=== PATIENT | female | born 1955 | race Caucasian/White ===

== ENCOUNTER 2021-11-30 19:43 | Observation (INO) | payer OTHER, BC, SELFPAY ==
[2021-11-30] VITALS (7 sets, daily range): BP systolic 173–207; BP diastolic 82–156; PULSE 70–107; RESP 12–18; TEMP 36.6–37.1; O2SAT 96–100; BMI 19.3; BMI 19.8; BMI 18.6
--- NOTE | 2021-11-30 19:48 | CT_ITS ---
We are attempting to reach an attending provider to discuss findings. An addendum with communication details will be sent when the communication is complete. EXAM: CT ANGIOGRAPHY HEAD AND NECK WITH INTRAVENOUS CONTRAST CLINICAL INDICATION: Neuro deficit, acute, stroke suspected TECHNIQUE: [place] [facility] [place]/head and neck CT angiography protocol performed with intravenous contrast. This CT exam was performed using one or more of the following dose reduction techniques: automated exposure control, adjustment of the mA and/or kV according to patient size, and/or use of iterative reconstruction technique. This report was created using [employer] report generation technology. MIP reconstructed images were created and reviewed. CONTRAST: IV 100mL Isovue-370 RADIATION DOSE: CTDIvol = 12.27 mGy, DLP = 439.84 mGy-cm COMPARISON: None. FINDINGS: HEAD: RIGHT ANTERIOR CEREBRAL ARTERY: Unremarkable. No significant stenosis at the visualized segments. Anterior communicating artery is present. No aneurysm. RIGHT MIDDLE CEREBRAL ARTERY: Unremarkable. No significant stenosis at the visualized segments. No aneurysm. RIGHT POSTERIOR CEREBRAL ARTERY: Unremarkable. No occlusion or significant stenosis. No aneurysm. RIGHT INTRACRANIAL INTERNAL CAROTID ARTERY: Unremarkable. No significant stenosis. No dissection or occlusion. RIGHT INTRACRANIAL VERTEBRAL ARTERY: Unremarkable. No significant stenosis. No dissection or occlusion. LEFT ANTERIOR CEREBRAL ARTERY: Unremarkable. No significant stenosis at the visualized segments. No aneurysm. LEFT MIDDLE CEREBRAL ARTERY: Unremarkable. No significant stenosis at the visualized segments. No aneurysm. LEFT POSTERIOR CEREBRAL ARTERY: Unremarkable. No occlusion or significant stenosis. No aneurysm. LEFT INTRACRANIAL INTERNAL CAROTID ARTERY: Unremarkable. No significant stenosis. No dissection or occlusion. LEFT INTRACRANIAL VERTEBRAL ARTERY: Unremarkable. No significant stenosis. No dissection or occlusion. BASILAR ARTERY: Unremarkable. No significant stenosis. No aneurysm. GREAT VESSELS OF AORTIC ARCH: Unremarkable. Normal anatomy, patent. OTHER VASCULATURE: There is calcified plaque formation of the right cavernous carotid artery, with a mild stenosis (less than 50%). ALL ABOVE CRITERIA BY NASCET. There are no acute findings of the right and left internal carotid artery. ALL ABOVE CRITERIA BY NASCET. No vascular malformation. NECK: RIGHT COMMON CAROTID ARTERY: Unremarkable. No significant stenosis. No dissection or occlusion. RIGHT EXTRACRANIAL INTERNAL CAROTID ARTERY: Unremarkable. No significant stenosis. No dissection or occlusion. RIGHT EXTERNAL CAROTID ARTERY: Unremarkable. No occlusion. RIGHT EXTRACRANIAL VERTEBRAL ARTERY: Unremarkable. No significant stenosis. No dissection or occlusion. LEFT COMMON CAROTID ARTERY: Unremarkable. No significant stenosis. No dissection or occlusion. LEFT EXTRACRANIAL INTERNAL CAROTID ARTERY: Unremarkable. No significant stenosis. No dissection or occlusion. LEFT EXTERNAL CAROTID ARTERY: Unremarkable. No occlusion. LEFT EXTRACRANIAL VERTEBRAL ARTERY: Unremarkable. No significant stenosis. No dissection or occlusion. LUNG APICES: Apical pulmonary fibrosis. HEAD and NECK: BONES/JOINTS: There are degenerative findings of the cervical spine. No discrete lytic or blastic abnormalities. SOFT TISSUES: Unremarkable. TUBES, LINES AND DEVICES: There is a tracheostomy tube. The tip is at the level of the clavicles. CAROTID STENOSIS REFERENCE USING NASCET CRITERIA: % ICA stenosis = (1 - narrowest ICA diameter/diameter of distal cervical ICA) x 100. Mild - <50% stenosis. Moderate - 50-69% stenosis. Severe - 70-94% stenosis. Near occlusion - 95-99% stenosis. Occluded - 100% stenosis. CT/STROKE CTA Head AND Neck W/Con IMPRESSION: 1. There is calcified plaque formation of the right cavernous carotid artery, with a mild stenosis (less than 50%). ALL ABOVE CRITERIA BY NASCET. 2. There are no acute findings of the right and left internal carotid artery. ALL ABOVE CRITERIA BY NASCET. cf called. Electronically Signed: Balaji Parks MD at 20:19 EDT ,
--- NOTE | 2021-11-30 19:48 | CT_ITS ---
EXAM: CT HEAD WITHOUT INTRAVENOUS CONTRAST CLINICAL INDICATION: Neuro deficit, acute, stroke suspected TECHNIQUE: Multiple axial images were obtained of the head without intravenous contrast. This CT exam was performed using one or more of the following dose reduction techniques: automated exposure control, adjustment of the mA and/or kV according to patient size, and/or use of iterative reconstruction technique. This report was created using [employer] report generation technology. COMPARISON: None. FINDINGS: BRAIN AND EXTRA-AXIAL SPACES: Low density regions in the brain may signify early ischemic changes, a demyelinating process, vasculitis, or sequela related to migraines. No intra- or extra-axial hemorrhage. No intracranial mass or mass effect. Posterior fossa structures are unremarkable. Ventricles are appropriate for age. No hydrocephalus. Basal cisterns are patent. BONES/JOINTS: Unremarkable. No discrete lytic or blastic abnormalities. SINUSES: Unremarkable as visualized. Clear. MASTOID AIR CELLS: Unremarkable. Clear. ORBITS: Visualized globes, extraocular muscles, optic nerves and retrobulbar fat appear unremarkable. aspects 9/ CT/STROKE Brain/Head without Cont IMPRESSION: Early ischemic changes of the right frontal parietal lobe are of concern. cf called to dr Luciano : The above Results were Read Back by Balaji Parks MD to Dr. Josephine MD, and understanding confirmed on 11/30/2021 20:03:14 (ET). Electronically Signed: Balaji Parks MD at 20:04 EDT Reading Location ID and State: [facility] / [place] , Service support ,
--- NOTE | 2021-11-30 19:48 | EKG12_ITS ---
Test Reason : DYSRHYTHMIA Blood Pressure : / mmHG Vent. Rate : 080 BPM Atrial Rate : 080 BPM P-R Int : 162 ms QRS Dur : 080 ms QT Int : 392 ms P-R-T Axes : 082 -36 076 degrees QTc Int : 452 ms Sinus rhythm with Premature supraventricular complexes Left axis deviation Nonspecific ST and T wave abnormality Abnormal ECG Confirmed by DALTON CORONADO, DOMENICA ([id number]), editor magazine LESVIA SWANSON ([id number]) on 12/01/2021 11:41:19 AM Referred By: SANDY Confirmed By:DOMENICA HOFFMAN MD
--- NOTE | 2021-11-30 19:49 | EDS_ITS ---
HPI History of Present Illness Chief Complaint: Neuro S/Sx Informant: patient Narrative Narrative: Sudden numbness left hand left cheek and reported some weakness in the left upper extremity 6:15 PM this evening less than 2 hours ago. No headaches or speech changes. States had transient left arm weakness. Currently resolved. No stroke history. History of laryngeal cancer in 2016 has a tracheostomy tube. Remote tobacco. States does not take any current me dications. No stroke history. Prior similar symptoms: No PFSH PFSH Medical History COPD (chronic obstructive pulmonary disease) HTN (hypertension) Laryngeal cancer Home Medications levothyroxine 75 mcg PO DAILY 11/30/21 [History Last Taken Unknown] omeprazole 40 mg PO DAILY 11/30/21 [History Last Taken Unknown] Allergy/AdvReac Type Severity Reaction Status Date / Time No Known Allergies Allergy Verified 08/18/16 07:20 Family History Other CVA (cerebral vascular accident) Surgical History Laryngeal cancer Social History Smoking Status: Former smoker ROS ROS ED Constitutional Constitutional ED: Denies chills, fever(s) or sweats Eyes Eyes: Denies change in vision ENT ENT ED: Denies dysphagia or sore throat Cardiovascular Cardiovascular: Denies chest pain, leg edema, palpitations or racing heartbeat Respiratory/Chest Respiratory/Chest: Denies cough, dyspnea or dyspnea on exertion Gastrointestinal Gastrointestinal: Denies abdominal pain, diarrhea, nausea or vomiting Genitourinary Genitourinary ED: Denies dysuria, hematuria or urinary frequency Musculoskeletal Musculoskeletal: Denies back pain, extremity pain or neck pain Integumentary Denies rash or wounds Neurologic Neurologic: Reports paresthesias and weakness; Denies headache(s) EXAM Physical Exam Const Vital Signs: 11/30/21 19:44 11/30/21 19:54 11/30/21 20:07 Temperature 98.2 F 98.6 F Temperature Source Temporal Temporal Pulse Rate 107 H 83 Respiratory Rate 16 14 Blood Pressure 201/156 H 184/110 H Blood Pressure Mean 171 134 Pulse Ox 98 100 Oxygen Delivery Method Room Air Room Air Room Air 11/30/21 20:14 Temperature Temperature Source Pulse Rate 85 Respiratory Rate 18 Blood Pressure 200/109 H Blood Pressure Mean 139 Pulse Ox 98 Oxygen Delivery Method Room Air Positive well nourished and well developed General Appearance ED: well developed and NAD HEENT Reports moist mucous membranes normocephalic and atraumatic Eyes PERRL, EOMs intact bilaterally and conjunctivae normal General Eye ED: Yes normal appearance of both eyes Neck no lymphadenopathy and supple General: Negative for tenderness Chest Wall Chest: Negative for tenderness Resp normal respiratory effort and normal air movement Effort and Inspection: symmetric chest movement; Negative for respiratory distress Cardio regular rate, regular rhythm and no murmurs Peripheral Pulses: pulses 2+ throughout GI normal to inspection, nondistended, normoactive bowel sounds and non-tender Palpation: Negative for guarding or rebound tenderness present Back/Spine no CVA tenderness and no thoracic nor lumbar tenderness Extremity normal to inspection General Extremety ED: Negative for edema or tenderness General Extremity: Negative for edema Neuro oriented x3 and no sensory deficits noted Sensorium / Orientation: awake and alert Skin no rashes or lesions noted and no wounds STROKE Vital Signs/Narrative: Vital Signs Temp Pulse Resp BP Pulse Ox 11/30/21 20:14 85 18 200/109 H 98 11/30/21 20:07 98.6 F 83 14 184/110 H 100 11/30/21 19:44 98.2 F 107 H 16 201/156 H 98 Inital Vital Signs reviewed: Yes NIHSS Initial: 1a Level of Consciousness: 0 1b LOC Questions (Score 2 if aphasic/stupor): 0 1c LOC Commands (Only score 1st attempt): 0 2 Best Gaze (If aphasic, use reflexive mvmts.): 0 3 Visual: 0 4 Facial Palsy: 0 5 Motor Arm Right (UN = amputation/fusion): 0 5 Motor Arm Left: 0 6 Motor Leg Right: 0 6 Motor Leg Left: 0 7 Limb ataxia (Only + if out of proportion): 0 8 Sensory (Aphasia/stupor=0 or 1, coma=2): 0 9 Best Language: 0 10 Dysarthria (mute, coma=2, intubated=UN): 0 11 Extinction and Inattention (only scored if +): 0 Total Score: 0 MDM MDM MDM Narrative Medical decision making narrative: Patient transient paresthesia's face hand with transient weakness in left upper extremity. NIH currently is 0. Glucose 98. Timeframe within 4.5 hours of symptoms stroke team was activated. Will obtain CT and CT angiograms. Blood pressure in triage seen at 201/156. Will recheck when return to the room. Shortly after received a call from radiology concerning for possible early ischemic findings of the right frontal parietal lobe area. I did discuss the left-sided symptoms. CTA was pending. Neurology Dr. Gann was on the monitor I discussed the radiology findings and concerns. She reviewed the imagings and states appears more chronic changes. Patient is symptoms have resolved. There is pending results in her evaluation of the CT angiogram. Results which returned negative for LVO. She recommended baby aspirin and loading of Plavix 600 mg. She stating systolic blood pressure should be less than 200 with her recommending Plavix. Due to no LVO, patient will be admitted here for stroke work-up. I spoke with hospitalist service, Dr. Ayala for admission and recommendations by neurology. Chest x-ray 2 views obtained reviewed by myself noted hyperinflated lungs consistent with her COPD history. EKG is sinus rhythm. Patient admitted to PCU for further management. Lab Data Attestation: I reviewed the patient's lab results. Labs: Laboratory Results - last 24 hr 11/30/21 11/30/21 11/30/21 19:45 20:00 20:00 WBC 4.7 RBC 3.89 L Hgb 11.3 L Hct 34.0 L MCV 87.4 MCH 29.0 MCHC 33.2 RDW Std Deviation 44.2 H RDW Coeff of Cecelia 13.7 Plt Count 195 MPV 9.0 Immature Gran % (Auto) 0.400 Neut % (Auto) 66.0 Lymph % (Auto) 22.6 [place] % (Auto) 8.6 Eos % (Auto) 1.5 Baso % (Auto) 0.9 Absolute Neuts (auto) 3.1 Absolute Lymphs (auto) 1.05 Nucleated RBC % 0 PT 12.9 INR 1.0 APTT 29.6 Sodium Potassium Chloride Carbon Dioxide Anion Gap BUN Creatinine Estim Creat Clear Calc Est GFR (MDRD) Af Amer Est GFR (MDRD) Non-Af BUN/Creatinine Ratio Glucose Calcium Troponin I High Sens POC Glucose 98 11/30/21 20:00 WBC RBC Hgb Hct MCV MCH MCHC RDW Std Deviation RDW Coeff of Cecelia Plt Count MPV Immature Gran % (Auto) Neut % (Auto) Lymph % (Auto) [place] % (Auto) Eos % (Auto) Baso % (Auto) Absolute Neuts (auto) Absolute Lymphs (auto) Nucleated RBC % PT INR APTT Sodium 134 L Potassium 4.0 Chloride 101 Carbon Dioxide 27.0 Anion Gap 6 BUN 7 Creatinine 1.13 H Estim Creat Clear Calc 41.14 Est GFR (MDRD) Af Amer 62 Est GFR (MDRD) Non-Af 51 L BUN/Creatinine Ratio 6.2 L Glucose 99 Calcium 9.4 Troponin I High Sens 4 POC Glucose Radiography Diagnostic Testing: Clinical Impression(s) from Imaging Studies Brain CT 11/30/21 19:48 IMPRESSION: Early ischemic changes of the right frontal parietal lobe are of concern. cf called to dr Luciano : The above Results were Read Back by Balaji Parks MD to Dr. Josephine MD, and understanding confirmed on 11/30/2021 20:03:14 (ET). Electronically Signed: Balaji Parks MD at 20:04 EDT , ADDENDUM: 11/30/212010 IMPRESSION: Early ischemic changes of the right frontal parietal lobe are of concern. cf called to dr Luciano : The above Results were Read Back by Balaji Parks MD to Dr. Josephine MD, and understanding confirmed on 11/30/2021 20:03:14 (ET). Electronically Signed: Balaji Parks MD at 20:04 EDT , Head/Neck CTA 11/30/21 19:48 IMPRESSION: 1. There is calcified plaque formation of the right cavernous carotid artery, with a mild stenosis (less than 50%). ALL ABOVE CRITERIA BY NASCET. 2. There are no acute findings of the right and left internal carotid artery. ALL ABOVE CRITERIA BY NASCET. cf called. Electronically Signed: Balaji Parks MD at 20:19 EDT , ADDENDUM: 11/30/212030 IMPRESSION: 1. There is calcified plaque formation of the right cavernous carotid artery, with a mild stenosis (less than 50%). ALL ABOVE CRITERIA BY NASCET. 2. There are no acute findings of the right and left internal carotid artery. ALL ABOVE CRITERIA BY NASCET. cf called. N.B. : The above Results were Read Back by Balaji Parks MD to MD Josephine, and understanding confirmed on 11/30/2021 20:24:23 (ET). Electronically Signed: Balaji Parks MD at 20:19 EDT , Chest X-Ray 11/30/21 20:20 IMPRESSION: There are no acute findings. Electronically Signed: Balaji Parks MD at 20:43 EDT , EKG Initial EKG: Attestation: I personally reviewed and interpreted this EKG as follows: Comments: Sinus rate of 80, no ST changes. T wave version V1 V2. Discharge Plan Dx/Rx/DC Orders Clinical Impression: Brain TIA, Laryngeal cancer, COPD (chronic obstructive pulmonary disease), Left arm weakness Disposition Disposition: Acute Care Hospital [facility] Discharge Date/Time: 11/30/21 21:30
[2021-11-30 19:51] LABS: Bedside Glucose 98 mg/dL (74-106)
--- NOTE | 2021-11-30 19:56 | CM.ED ---
Addendum entered by Margaret Issa 11/30/21 20:21: FLORENCIA and FLORENCIA Sarmiento met with patient's daughter in law and and offered support. No needs voiced. SW remains available. Plan: To be determined. Emotional support offered. Margaret LISA Original Note: FLORENCIA Note Referral Source: Stroke Alert Referral Reason: Stroke Alert FLORENCIA and FLORENCIA Sarmiento H. Responded to Stroke alert. Patient and family member were in imaging. SW remain available if needs arise. Plan: Emotional support as needed. Margaret LISA
[2021-11-30 20:08] LABS: Absolute Lymphocyte Count 1.05 X10^3/uL (0.83-4.51); Absolute Neutrophil Count 3.1 X10^3/uL (2.0-7.7); Basophil# 0.04 X10^3/uL; Basophil% 0.9 % (0-1); Eosinophil# 0.07 X10^3/uL; Eosinophils% 1.5 % (0-5); Hemoglobin 11.3 g/dL (12.0-15.0); Lymphocyte # 1.05 X10^3/ul (0.83-4.51); Lymphocyte % 22.6 % (19-41); Mean Corp Hgb Conc 33.2 g/dL (32-36); Mean Corpuscular Volume 87.4 fL (81-99); Monocyte% 8.6 % (0-10); NRBC Flagged by Analyzer 0 % (0-5); Neutrophil # 3.07 X10^3/uL (2.7-7.7); Platelet Count 195 K/mm3 (150-450); RBC Distribution Width CV 13.7 % (11.6-14.6); RBC Distribution Width SD 44.2 fl (35.1-43.9); Red Blood Count 3.89 M/mm3 (4.2-5.4); White Blood Count 4.7 K/mm3 (4.4-11.0)
[2021-11-30 20:16] LABS: Prothrombin Time (Protime)PT. 12.9 SECONDS (11.7-14.9)
[2021-11-30 20:17] LABS: Partial Thromboplast Time 29.6 Seconds (24.1-36.2)
--- NOTE | 2021-11-30 20:20 | RAD_ITS ---
STUDY: XR Chest 1 View 11/30/2021 8:22 PM REASON FOR EXAM: Female, 66 years old. Neuro deficit, acute, stroke suspected COMPARISON: 08/11/2015 TECHNIQUE: XR Chest 1 View FINDINGS: There is no demonstrated pleural abnormality. The lung bowden are hyperexpanded. There is a tracheostomy tube. The tip is at the level of the clavicles. Normal heart size. Normal mediastinum. Normal marcelino. Prominent appearing increased interstitial lung markings. Normal visualized pulmonary arteries. There is atherosclerotic calcification of the aortic arch with tortuosity. There are diffuse degenerative changes of the visualized thoracic spine. There is degenerative osteoarthritis of the bilateral shoulders. There is no demonstrated abnormality of the visualized soft tissue structures of the upper abdomen. RAD/Chest 1 View IMPRESSION: There are no acute findings. Electronically Signed: Balaji Parks MD at 20:43 EDT ,
[2021-11-30 20:25] LABS: Anion Gap 6 (5-15); BUN 7 mg/dL (7-18); BUN/Creat Ratio 6.2 RATIO (10-20); Calcium,Total 9.4 mg/dL (8.5-10.1); Chloride 101 mmol/L (98-107); Creatinine, Serum 1.13 mg/dL (0.55-1.02); EST Glomerular Filtration Rate 51 mL/min (>60); Est Glom Filt Rate - Afr Amer 62 mL/min (>60); Estimated Creatinine Clearance 41.14 ml/min; Glucose 99 mg/dL (74-106); Sodium Level 134 mmol/L (136-145); Troponin-I HS 4 pg/mL (3.0-54.0)
--- NOTE | 2021-11-30 20:37 | HP.PCM.HOS_ITS ---
HPI - General General Date of Admission: 11/30/21 HPI Narrative LYN LOPEZ, is a 66 F with a significant history of COPD; GERD on omeprazole; hypothyroidism on Synthroid; laryngeal cancer status post laryngectomy with reconstruction and with a trachea tube who presents to the emergency department with strokelike symptoms. Her symptoms started about an hour and a half to twobefore presentation. She described her symptoms as numbness and weakness of her left upper and not been as below her left chain. Also her [id number] reports drooping at left side of her face. Her symptoms had resolved on arrival to the ED except some mild facial droop of the left face. Also patient reports some back pain that reoccurred on the same day of presentation. She report is back pain any time that she is anxious. She reports a history of difficulty swallowing pills. [facility] Medical History COPD (chronic obstructive pulmonary disease) HTN (hypertension) Laryngeal cancer Home Medications levothyroxine 75 mcg PO DAILY 11/30/21 [History Last Taken Unknown] omeprazole 40 mg PO DAILY 11/30/21 [History Last Taken Unknown] Allergy/AdvReac Type Severity Reaction Status Date / Time No Known Allergies Allergy Verified 08/18/16 07:20 Family History Other CVA (cerebral vascular accident) Surgical History Laryngeal cancer Social History Smoking Status: Former smoker ROS ROS Narrative Pertinent positives and pertinent negatives as noted in HPI. All other systems were reviewed and are negative. Vital Signs Vital Signs Vital Signs: 11/30/21 19:44 11/30/21 19:54 11/30/21 20:07 Temperature 98.2 F 98.6 F Temperature Source Temporal Temporal Pulse Rate 107 H 83 Respiratory Rate 16 14 Blood Pressure 201/156 H 184/110 H Blood Pressure Mean 171 134 Pulse Ox 98 100 Oxygen Delivery Method Room Air Room Air Room Air 11/30/21 20:14 Temperature Temperature Source Pulse Rate 85 Respiratory Rate 18 Blood Pressure 200/109 H Blood Pressure Mean 139 Pulse Ox 98 Oxygen Delivery Method Room Air Weight Weight: 52.5 kg Body Mass Index (BMI) 19.8 Physical Exam Narrative Physical exam: General: Thin frame middle-aged looking female Head: Normocephalic, atraumatic, no tenderness Eyes: Vision is grossly intact. EOMI ENT, no trauma, moist mucous membranes, no rhinorrhea Neck: Trachea tube in place. Nontender, full range of motion, no spinal te nderness, deformities, step-off CVS: Regular rate and rhythm. S1-S2 present. No murmur, gallop or rub. Respiratory : clear to auscultation bilaterally, chest wall nontender, no wheezing Abdomen: Soft, nontender, nondistended, normal bowel sounds, no masses : Deferred Back: Nontender, no CVA tenderness, no midline spinal tenderness, deformities, step-offs Extremities: Nontender full range of motion, no trauma Skin: Normal color, no trauma, abrasions Neuro: Alert, oriented, cranial nerves II through XII grossly intact. No dysmetria on [id number] test and arias to heel test. Deep tendon reflexes not hyperreflexia throughout. Strength in left upper extremity at 3 out of 4. Strength in all other extremities 5 out of 5. Psychiatry: Normal mood. Normal affect. Not depressed. Not anxious. Results Lab / Micro Data Result Diagrams: 11/30/21 20:00 11/30/21 20:00 Labs: Laboratory Results - last 24 hr 11/30/21 19:45: POC Glucose 98 11/30/21 20:00: WBC 4.7, RBC 3.89 L, Hgb 11.3 L, Hct 34.0 L, MCV 87.4, MCH 29.0, MCHC 33.2, RDW Std Deviation 44.2 H, RDW Coeff of Cecelia 13.7, Plt Count 195, MPV 9.0, Immature Gran % (Auto) 0.400, Neut % (Auto) 66.0, Lymph % (Auto) 22.6, [place] % (Auto) 8.6, Eos % (Auto) 1.5, Baso % (Auto) 0.9, Absolute Neuts (auto) 3.1, Absolute Lymphs (auto) 1.05, Nucleated RBC % 0 11/30/21 20:00: PT 12.9, INR 1.0, APTT 29.6 11/30/21 20:00: Sodium 134 L, Potassium 4.0, Chloride 101, Carbon Dioxide 27.0, Anion Gap 6, BUN 7, Creatinine 1.13 H, Estim Creat Clear Calc 41.14, Est GFR (MDRD) Af Amer 62, Est GFR (MDRD) Non-Af 51 L, BUN/Creatinine Ratio 6.2 L, Glucose 99, Calcium 9.4, Troponin I High Sens [address] 11/30/21 19:48 IMPRESSION: Early ischemic changes of the right frontal parietal lobe are of concern. cf called to dr Luciano : The above Results were Read Back by Balaji Parks MD to Dr. Josephine MD, and understanding confirmed on 11/30/2021 20:03:14 (ET). Electronically Signed: Balaji Parks MD at 20:04 EDT , ADDENDUM: 11/30/212010 IMPRESSION: Early ischemic changes of the right frontal parietal lobe are of concern. cf called to dr Luciano : The above Results were Read Back by Balaji Parks MD to Dr. Josephine MD, and understanding confirmed on 11/30/2021 20:03:14 (ET). Electronically Signed: Balaji Parks MD at 20:04 EDT , Head/Neck CTA 11/30/21 19:48 IMPRESSION: 1. There is calcified plaque formation of the right cavernous carotid artery, with a mild stenosis (less than 50%). ALL ABOVE CRITERIA BY NASCET. 2. There are no acute findings of the right and left internal carotid artery. ALL ABOVE CRITERIA BY NASCET. cf called. Electronically Signed: Balaji Parks MD at 20:19 EDT , ADDENDUM: 11/30/212030 IMPRESSION: 1. There is calcified plaque formation of the right cavernous carotid artery, with a mild stenosis (less than 50%). ALL ABOVE CRITERIA BY NASCET. 2. There are no acute findings of the right and left internal carotid artery. ALL ABOVE CRITERIA BY NASCET. cf called. N.B. : The above Results were Read Back by Balaji Parks MD to MD Josephine, and understanding confirmed on 11/30/2021 20:24:23 (ET). Electronically Signed: Balaji Parks MD at 20:19 EDT , Assessment & Plan Assessment/Plan (1) Stroke-like symptoms: PLAN: Stroke-like symptoms Serial NINDS NIH Scale ordered Brain CT was visualized and independently interpreted. No acute pathology seen. Per radiologist there is early ischemic changes of the right frontoparietal lobe. Per ED doctor case was discussed with the neurologist who felt that the supposed area of early ischemic changes on a CTA head and neck with no hemodynamically significant stenosis. Lipid profile and A1c ordered. Physical therapy, occupational therapy to work with patient. Patient passed swallow evaluation at the ED. Per neurology recommendation baby aspirin and Plavix load was given at the ED. Daily aspirin and daily Plavix ordered. High intensity statin ordered. CBC reviewed showed normal white counts. Trend CMP. BMP reviewed on presentation and it was unremarkable. ED doc report that per her neurologist permissive hypertension should be set with systolic blood pressure of 200 secondary to starting patient on Plavix. Permissive hypertension. Control blood pressure with labetalol for systolic blood pressure of more than 200 or diastolic blood pressure of more than 120. Reportedly after laryngeal surgery with reconstruction patient developed hypertension which resolved. MRI of head; brain; and neck. Echocardiogram ordered. Chronic anemia CBC showed hemoglobin of 11.3 which is within baseline. Trend CBC DVT prophylaxis: SCDs ordered Charges/Coding Visit Charges OBSV E&M: [id number] Initial observation care L3
[2021-11-30] MEDS: Clopidogrel Bisulfate 300 MG Tablet 600 MG PO (20:44)
[2021-11-30] MEDS: Aspirin 81 MG TAB.CHEW PO (20:44)
--- NOTE | 2021-11-30 21:34 | MRI_ITS ---
STUDY: MRI BRAIN WITHOUT CONTRAST REASON FOR EXAM: Female, 66 years old. Stroke-like symptoms, left facial weakness,droop TECHNIQUE: Standardized multiplanar fat and water weighted pulse sequences were obtained. COMPARISON: CT 11/30/2021 FINDINGS: There is mild cerebral atrophy with widening of the extra-axial spaces and ventricular dilatation. There are a limited number of small white matter hyperintensities, distributed throughout the deep white matter tracts of the cerebral hemispheres, consistent with mild chronic white matter ischemic changes. There is no evidence for recent intracranial ischemia or other cause of cytotoxic edema on diffusion weighted imaging (DWI). Normal T2* images of the brain without demonstrated susceptibility artifact. There is no demonstrated hemosiderin stain. Normal bilateral basal ganglia. Normal thalami. There is no extra-axial fluid accumulation. Normal flow voids within the major intracranial circulation suggesting patency by spin echo criteria. Normal sella turcica, pituitary gland, infundibular stalk, optic chiasm and hypothalamus. Normal tectal plate and pineal gland. Normal midbrain, ana luisa and medulla. Normal cerebellum. Normal basal cisterns. Normal bilateral temporal bones. Normal bilateral internal auditory canals. No demonstrated orbital abnormality, within the constraints of a routine brain study. Normal visualized paranasal sinuses. Normal calvarium and skull base. Normal visualized soft tissue structures. Normal visualized upper cervical spine. MRI/Brain without Contrast IMPRESSION: Involutional changes of the brain, as described above. No acute infarct. Electronically Signed: Earle Lauren MD at 12:01 EDT ,
--- NOTE | 2021-11-30 21:34 | ECHOD_ITS ---
Reason For Study: CVA Procedure This was a 2D Doppler, Color Flow transthoracic echocardiogram. The study was technically difficult. Exam performed portable in patient room. Left Ventricle Normal LV size. Left ventricular systolic function is normal. The estimated ejection fraction is 55 %. No regional wall motion abnormalities noted. Right Ventricle Normal RV size. Normal systolic function. Atria Normal left atrium. Normal right atrium. Bubble contrast study negative for right to left interatrial shunt. Mitral Valve Normal mitral valve. Tricuspid Valve Normal tricuspid valve. Mild (1+) tricuspid valve insufficiency. Pulmonary artery systolic pressure is 33 mmHg. Aortic Valve Normal aortic valve. Trisinus/trileaflet aortic valve. Pulmonic Valve Normal pulmonic valve. Great Vessels Normal aortic root. The pulmonary artery is normal size. Normal inferior vena cava. Pericardium/Pleural No pericardial effusion. Medication Performed a rapid injection of agitated mix of 9 cc saline and 1cc air to assess for atrial septal defect. MMode/2D Measurements & Calculations LVIDd: 4.0 cm IVSd: 0.87 cm Ao root diam: 3.0 cm LVIDs: 2.6 cm LVPWd: 0.94 cm RVDd: 2.6 cm FS: 34.4 % LAV(MOD-bp): 26.8 ml LVAd ap4: 23.0 cm2 SV(MOD-sp4): 45.4 ml LAV(MOD-bp) Indexed: 17.6 ml/m2 LVLd ap4: 6.5 cm LAV(MOD-sp2): 25.9 ml EDV(MOD-sp4): 66.2 ml LAV(MOD-sp4): 23.9 ml EDV(sp4-el): 69.5 ml LVAs ap4: 11.5 cm2 LVLs ap4: 5.2 cm ESV(MOD-sp4): 20.8 ml ESV(sp4-el): 21.4 ml EF(MOD-sp4): 68.5 % EF(sp4-el): 69.2 % SV(sp4-el): 48.1 ml LA A4 area: 10.9 cm2 LA dimension(2D): 2.4 cm RA A4 area: 8.4 cm2 Time Measurements MV dec time: 0.19 sec Doppler Measurements & Calculations MV E max guillermo: 67.5 cm/sec Lat Peak E' Guillermo: 8.5 cm/sec Med Peak E' Guillermo: 8.6 cm/sec MV A max guilelrmo: 64.3 cm/sec E/E' lat: 8.0 E/E' med: 7.9 MV E/A: 1.1 Ao V2 max: 144.2 cm/sec LV V1 max: 155.5 cm/sec PA V2 max: 92.9 cm/sec Ao max P.3 mmHg LV V1 max P.7 mmHg TR max guillermo: 264.4 cm/sec TR max P.0 mmHg ECHO/Echo Complete Interpretation Summary Normal LV size. Left ventricular systolic function is normal. The estimated ejection fraction is 55 %. Bubble contrast study negative for right to left interatrial shunt. Pulmonary artery systolic pressure is 33 mmHg. Ordering Physician: Dwaine Ayala Referring Physician: BELINDA ROBERSON Performed By: Svitlana Alonzo RDCS
[2021-11-30] MEDS: 0.9% Saline Lock 10 ML Syringe IV (21:58)
[2021-11-30] MEDS: Atorvastatin Calcium 80 MG Tablet PO (22:07)
[2021-12-01] VITALS (7 sets, daily range): BP systolic 131–143; BP diastolic 78–89; PULSE 63–76; RESP 18–20; TEMP 36.7–36.9; O2SAT 98–100
[2021-12-01] MEDS: Levothyroxine 75 MCG Tablet PO (06:14)
[2021-12-01 06:34] LABS: Absolute Lymphocyte Count 0.83 X10^3/uL (0.83-4.51); Absolute Neutrophil Count 1.6 X10^3/uL (2.0-7.7); Basophil# 0.05 X10^3/uL; Basophil% 1.7 % (0-1); Eosinophil# 0.05 X10^3/uL; Eosinophils% 1.7 % (0-5); Hematocrit 33.7 % (37-47); Hemoglobin 10.9 g/dL (12.0-15.0); Lymphocyte # 0.83 X10^3/ul (0.83-4.51); Lymphocyte % 28.2 % (19-41); Mean Corp Hgb Conc 32.3 g/dL (32-36); Mean Corpuscular Hgb 27.9 pg (27.0-32.0); Mean Corpuscular Volume 86.2 fL (81-99); Monocyte# 0.36 X10^3/uL; Monocyte% 12.2 % (0-10); NRBC Flagged by Analyzer 0 % (0-5); Neutrophil # 1.64 X10^3/uL (2.7-7.7); Neutrophil % 55.9 % (47-70); Platelet Count 180 K/mm3 (150-450); RBC Distribution Width SD 44.2 fl (35.1-43.9); Red Blood Count 3.91 M/mm3 (4.2-5.4); White Blood Count 2.9 K/mm3 (4.4-11.0)
[2021-12-01 06:59] LABS: AST(SGOT) 21 U/L (15-37); Alanine Aminotransfer ALT/SGPT 17 U/L (13-56); Albumin, Serum 3.4 g/dL (3.2-5.0); Alkaline Phosphatase 97 U/L (45-117); Anion Gap 7 (5-15); BUN 8 mg/dL (7-18); BUN/Creat Ratio 8.4 RATIO (10-20); Chloride 103 mmol/L (98-107); Cholesterol 202 mg/dL (200); Creatinine, Serum 0.95 mg/dL (0.55-1.02); EST Glomerular Filtration Rate 63 mL/min (>60); Est Glom Filt Rate - Afr Amer 76 mL/min (>60); Estimated Creatinine Clearance 47.35 ml/min; Globulin 3.4 g/dL (2.2-4.2); Glucose 85 mg/dL (74-106); High Density Lipoprotein 78 mg/dL; Potassium 3.7 mmol/L (3.5-5.1); Protein, Total 6.8 g/dL (6.4-8.2); Sodium Level 136 mmol/L (136-145); Triglycerides 67 mg/dL; Very Low Density Lipoprotein 13 mg/dL (5-40)
[2021-12-01 08:37] LABS: Hemoglobin A1c 5.6 % (3.8-5.6)
[2021-12-01] MEDS: Aspirin 81 MG TAB.CHEW PO (08:40)
[2021-12-01] MEDS: Pantoprazole Sodium 40 MG Tablet PO (08:40)
[2021-12-01] MEDS: Clopidogrel Bisulfate 75 MG Tablet PO (08:41)
--- NOTE | 2021-12-01 10:15 | CASEMGMT ---
SW completed a PHQ 9 with patient as she may have had a Stroke or TIA. Patient scored a 0 which indicates no depression. Patient denies any need for resources. Deborah MCCULLOUGH
--- NOTE | 2021-12-01 11:43 | TELEMED_ITS ---
[facility] Tele[facility] has confirmed receipt of a request for visit. This document confirms receipt of the order initiating the consult. To find the results of the consultation, please view the patient's reports for the scanned Telemed Consult.
--- NOTE | 2021-12-01 13:55 | DS.PCM_ITS ---
Providers Date of Admission: 11/30/21 Date of Discharge: 12/01/21 Primary Care Physician: Belinda Lucio PA-C Reason For Visit: STROKE LIKE SYMPTOMS Diagnosis Discharge Diagnosis (1) Brain TIA: Status: Acute Code(s): G45.9 - Transient cerebral ischemic attack, unspecified Medications at Discharge Home Medications levothyroxine 75 mcg PO DAILY 11/30/21 omeprazole 40 mg PO DAILY 11/30/21 aspirin 81 mg PO BREAKFAST #30 tab 12/01/21 atorvastatin 80 mg PO QHS #30 tab 12/01/21 clopidogrel 75 mg PO DAILY #20 tab 12/01/21 Hospital Course Operations None Procedures 2-D Echocardiogram, EKG and - (MRI/CTA of neck and head) Summary of Care Provided Minutes Spent on Discharge: 39 Hospital Course: Mrs. Ramos is a 66-year-old white female who presented to emergency department on 11/30/2021 with strokelike symptoms. She was complaining of numbness and weakness in her left upper extremity and some left facial droop. The symptoms started approximately an hour and 1/2 to 2 hours prior to presentation. By the time she presented to the emergency department she only had some persistent mild facial droop on the left side of her face. She has never had anything like this previously and has had no history of stroke. In the emergency department a stroke team was called and a CT of her head as well as a CTA of her head and neck were performed. Her initial CT was concerning for early ischemic changes in the right frontal parietal lobe. Her CTA showed less than 50% stenosis of the right cavernous carotid artery and no acute findings in the right and left internal carotid arteries.She was admitted to the PCU and monitored on telemetry throughout her entire course. Her labs were overall unremarkable and her coags were normal. Her lipids were assessed and she was found to have a total cholesterol of 202 with an LDL of 111 and an HDL of 78. She was started on aspirin and Plavix and an MRI and echocardiogram were performed. Her MRI showed only chronic involutional changes of the brain with no acute infarct. Her echocardiogram showed an EF of 55% with a negative bubble study and pulmonary artery systolic pressure of 33 mmHg. Stroke consultation was obtained and they recommended continuation of dual antiplatelet therapy for 21 days with discontinuation of her Plavix after the 21 days has been completed, initiate as of and statin at discharge, and follow-up with outpatient neurology. We will also obtain an event monitor given no direct etiology for her symptoms was found. She was discharged home in stable condition on 12/01/2021. It was recommended she follow-up with her primary care physician within the next 2 weeks and she was given a referral for neurology to follow-up within the next month. Prescriptions were faxed to her pharmacy for above medications. 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 Goal LDL is less than 100. Her blood pressures were mildly elevated predominantly ranging in the 130s to 140s systolic and 80s to 90s diastolic. I did recommend that she follow-up with outpatient primary care to have this evaluated in an ambulatory setting and if these elevations persist I would recommend initiating an antihypertensive medication to obtain a goal of less than 130/80. Discharge diagnoses: Transient ischemic attack Hyperlipidemia with an elevated LDL COPD History of laryngeal cancer Hypertension--> on no current therapy GERD History of tobacco abuse Physical Exam Const alert, oriented x3, no apparent distress and no limitations Constitutional Narrative: Thin upper middle-aged white female sitting up in bed, at bedside, patient appears comfortable nontoxic, she states all of her symptoms that she presented with have resolved. General Appearance: cooperative, comfortable, well kempt and well developed Orientation / Consciousness: awake Exam Limitations: no limitations Nutritional Appearance: thin HEENT normocephalic, head/scalp atraumatic, hearing grossly normal bilaterally and moist oral mucous membranes HEENT Narrative: Mallampati is 2 Eyes PERRL, EOMs intact bilaterally and conjunctivae normal Eyes Narrative: No scleral icterus Neck no lymphadenopathy, supple, no JVD and no carotid bruits Neck Narrative: Trachea midline with stoma present talking device in place and voice is clear, no thyroid enlargement Resp normal respiratory effort, no retractions, no use of accessory muscles and clear to auscultation bilaterally Resp Narrative: Diminished but clear Auscultation: Negative for crackles, rales, rhonchi or wheezes Cardio regular rate, regular rhythm, S1 normal heart sound, S2 normal heart sound, no murmurs, no rub, no gallops, no clicks and no JVD GI normal to inspection, nondistended, normoactive bowel sounds, soft to palpation, non-tender and non-distended; Negative for hepatosplenomegaly GI Narrative: Scaphoid abdomen Extremity no clubbing, cyanosis or edema Extremity Narrative: 2+ pedal pulses, decreased lean muscle mass Skin no rashes or lesions noted, no wounds, skin turgor normal and no jaundice Neuro oriented x3, CN's II-XII intact bilaterally, moves all extremities, no focal motor deficits and no sensory deficits noted Neuro Narrative: Mild generalized weakness but no focal deficits Sensorium / Orientation: awake and alert Speech: speech normal Psych affect normal Weight / BMI Weight Weight: 50.8 kg Body Mass Index (BMI) 18.6 ABG / Lab / Microbiology Data Result Diagrams: 12/01/21 06:15 12/01/21 06:15 Laboratory: Laboratory Results - last 24 hr 11/30/21 19:45: POC Glucose 98 11/30/21 20:00: WBC 4.7, RBC 3.89 L, Hgb 11.3 L, Hct 34.0 L, MCV 87.4, MCH 29.0, MCHC 33.2, RDW Std Deviation 44.2 H, RDW Coeff of Cecelia 13.7, Plt Count 195, MPV 9.0, Immature Gran % (Auto) 0.400, Neut % (Auto) 66.0, Lymph % (Auto) 22.6, [place] % (Auto) 8.6, Eos % (Auto) 1.5, Baso % (Auto) 0.9, Absolute Neuts (auto) 3.1, Absolute Lymphs (auto) 1.05, Nucleated RBC % 0 11/30/21 20:00: PT 12.9, INR 1.0, APTT 29.6 11/30/21 20:00: Sodium 134 L, Potassium 4.0, Chloride 101, Carbon Dioxide 27.0, Anion Gap 6, BUN 7, Creatinine 1.13 H, Estim Creat Clear Calc 41.14, Est GFR (MDRD) Af Amer 62, Est GFR (MDRD) Non-Af 51 L, BUN/Creatinine Ratio 6.2 L, Glucose 99, Calcium 9.4, Troponin I High Sens 4 12/01/21 06:15: WBC 2.9 L, RBC 3.91 L, Hgb 10.9 L, Hct 33.7 L, MCV 86.2, MCH 27.9, MCHC 32.3, RDW Std Deviation 44.2 H, RDW Coeff of Cecelia 14.0, Plt Count 180, MPV 9.0, Immature Gran % (Auto) 0.300, Neut % (Auto) 55.9, Lymph % (Auto) 28.2, [place] % (Auto) 12.2 H, Eos % (Auto) 1.7, Baso % (Auto) 1.7 H, Absolute Neuts (auto) 1.6 L, Absolute Lymphs (auto) 0.83, Nucleated RBC % 0 12/01/21 06:15: Sodium 136, Potassium 3.7, Chloride 103, Carbon Dioxide 26.0, Anion Gap 7, BUN 8, Creatinine 0.95, Estim Creat Clear Calc 47.35, Est GFR (MDRD) Af Amer 76, Est GFR (MDRD) Non-Af 63, BUN/Creatinine Ratio 8.4 L, Glucose 85, Calcium 9.0, Total Bilirubin 1.10 H, AST 21, ALT 17, Alkaline Phosphatase 97, Total Protein 6.8, Albumin 3.4, Globulin 3.4, Albumin/Globulin Ratio 1.0, Triglycerides 67, Cholesterol 202 H, LDL Cholesterol 111, VLDL Cholesterol 13, HDL Cholesterol 78 12/01/21 06:15: Hemoglobin A1c 5.6 Radiography Diagnostic Testing: Radiology Impression Brain CT 11/30/21 19:48 IMPRESSION: Early ischemic changes of the right frontal parietal lobe are of concern. cf called to dr Luciano : The above Results were Read Back by Balaji Parks MD to Dr. Josephine MD, and understanding confirmed on 11/30/2021 20:03:14 (ET). Electronically Signed: Balaji Parks MD at 20:04 EDT Reading Location ID and State: [facility] / [place] , Service support , ADDENDUM: 11/30/212010 IMPRESSION: Early ischemic changes of the right frontal parietal lobe are of concern. cf called to dr Luciano : The above Results were Read Back by Balaji Parks MD to Dr. Josephine MD, and understanding confirmed on 11/30/2021 20:03:14 (ET). Electronically Signed: Balaji Parks MD at 20:04 EDT , Head/Neck CTA 11/30/21 19:48 IMPRESSION: 1. There is calcified plaque formation of the right cavernous carotid artery, with a mild stenosis (less than 50%). ALL ABOVE CRITERIA BY NASCET. 2. There are no acute findings of the right and left internal carotid artery. ALL ABOVE CRITERIA BY NASCET. cf called. Electronically Signed: Balaji Parks MD at 20:19 EDT , ADDENDUM: 11/30/212030 IMPRESSION: 1. There is calcified plaque formation of the right cavernous carotid artery, with a mild stenosis (less than 50%). ALL ABOVE CRITERIA BY NASCET. 2. There are no acute findings of the right and left internal carotid artery. ALL ABOVE CRITERIA BY NASCET. cf called. N.B. : The above Results were Read Back by Balaji Parks MD to MD Josephine, and understanding confirmed on 11/30/2021 20:24:23 (ET). Electronically Signed: Balaji Parks MD at 20:19 EDT , Chest X-Ray 11/30/21 20:20 IMPRESSION: There are no acute findings. Electronically Signed: Balaji Parks MD at 20:43 EDT , Brain MRI 11/30/21 21:34 IMPRESSION: Involutional changes of the brain, as described above. No acute infarct. Electronically Signed: Earle Lauren MD at 12:01 EDT , Echocardiogram 11/30/21 21:34 Interpretation Summary Normal LV size. Left ventricular systolic function is normal. The estimated ejection fraction is 55 %. Bubble contrast study negative for right to left interatrial shunt. Pulmonary artery systolic pressure is 33 mmHg. Ordering Physician: Dwaine Ayala Referring Physician: BELINDA LUCIO Performed By: Svitlana Alonzo RDCS D/C Instructions Discharge Diet: Low fat / Low cholesterol Discharge Activity: Return to Normal Activity Meaningful Use Info Meaningful Use Diagnoses (Choose all that apply): None applicable Discharge Plan Admission Admit Date/Time: 11/30/21 20:38 Primary Reason for Your Visit: Transient ischemic attack Attending Provider: Sherry Preciado Primary Care Provider: Belinda Lucio Consulting Providers: Dwaine Ayala Instructions Patient Instructions: TIA Dc Additional Instructions / Restrictions: 1. Okay to crush new medications and take in applesauce 2. Please call Saturday for neurologic appointment at number noted below Discharge Orders/Prescriptions Prescriptions: New atorvastatin 80 mg Tablet 80 mg PO QHS Qty: 30 RF: 2 clopidogrel 75 mg Tablet 75 mg PO DAILY Qty: 20 RF: 0 aspirin 81 mg Tablet,Chewable 81 mg PO BREAKFAST Qty: 30 RF: 11 No Action omeprazole 40 mg capsule,delayed release(DR/EC) 40 mg PO DAILY RF: 0 levothyroxine 75 mcg tablet 75 mcg PO DAILY RF: 0 Other Ambulatory Orders: 30-Day Event Recorder (Routine) Location: None Selected Ordered By: Dr. Sherry Preciado Referrals / Follow Up: Bang Powell MD [NON-STAFF] - Within 1 Month Belinda Lucio, PA-C [Primary Care Provider] - Within 2 Weeks Disposition Disposition (needs filled in before D/C Order can be placed): Home, Self Care Charges/Coding Visit Charges Inpatient E&M: 95384 Disch Hosp
--- NOTE | 2021-12-01 14:39 | CASEMGMT ---
Pt declined need for therapy stating she is back to normal and voices no further concerns with discharge. Darrion CURTIS CM
== END 2021-12-01 14:12 | disposition home or self-care (01) ==
LOC: ED 20:53 → PCU 20:55
PROVIDERS: Admitting Provider Hospitalist; Emergency Provider Emergency Medicine; PCP Family Medicine; Visit Provider Internal Medicine
DX: G45.9 Transient cerebral ischemic attack, unspecified (principal); J44.9 Chronic obstructive pulmonary disease, unspecified; C32.9 Malignant neoplasm of larynx, unspecified; R29.810 Facial weakness; K21.9 Gastro-esophageal reflux disease without esophagitis; I10 Essential (primary) hypertension; E78.5 Hyperlipidemia, unspecified; R53.1 Weakness; Z79.899 Other long term (current) drug therapy; Z87.891 Personal history of nicotine dependence; R29.700 NIHSS score 0; E03.9 Hypothyroidism, unspecified; Z79.890 Hormone replacement therapy
CPT/HCPCS: 36415; 70450; 70496; 70498; 70551; 71045; 80048; 80053; 80061; 82962; 83036; 84484; 85025; 85610; 85730; 93005; 93306; 99218; 99285; Q9967; A4216; G0378

== ENCOUNTER 2024-01-20 08:07 | Day surgery (SDC) | payer BC, MEDICARE, SELFPAY ==
--- NOTE | 2024-01-20 08:21 | PCM.PRE.AN2 ---
ASA Classification* ASA Classification ASA Classification: 3 Assessment & Plan Anesthesia* Anesthesia Assessment Anesthesia Assessment: Discussed sedation and/or anesthesia options, risks, benefits, and alternatives with patient/parents/legal guardian/POA. Questions invited. The patient/parents/legal guardian/POA seems to understand and agrees to proceed with anesthesia plan. Reviewed the physical assessment, medical history, allergy history and patient home medications list prior to surgery/procedure/anesthetic and documented any changes. Performed airway and anesthesia risk assessments. Anesthesia Type Anesthesia Type: MAC (see written pre anesthesia record for complete assessment) Anesthesia Focused Assessment* Airway Assessment Mouth opens: >3 cm Mallampati Score: II Focused Labs Anesthesia Preop lab: CBC WBC 2.9 K/mm3 (4.4-11.0) L 12/01/21 06:15 RBC 3.91 M/mm3 (4.2-5.4) L 12/01/21 06:15 Hgb 10.9 g/dL (12.0-15.0) L 12/01/21 06:15 Hct 33.7 % (37-47) L 12/01/21 06:15 Plt Count 180 K/mm3 (150-450) 12/01/21 06:15 CHEMISTRY Potassium 3.7 mmol/L (3.5-5.1) 12/01/21 06:15 Sodium 136 mmol/L (136-145) 12/01/21 06:15 Magnesium 2.1 mg/dL (1.8-2.4) 02/08/16 08:33 Phosphorus 2.7 mg/dL (2.5-4.9) 08/13/15 23:59 BUN 8 mg/dL (7-18) 12/01/21 06:15 Creatinine 0.95 mg/dL (0.55-1.02) 12/01/21 06:15 Glucose 85 mg/dL (74-106) 12/01/21 06:15 POC Glucose 98 mg/dL (74-106) 11/30/21 19:45 COAG PT 12.9 SECONDS (11.7-14.9) 11/30/21 20:00 Pre-Assessment Diagnosis/Proposed Procedure Planned Operative Procedure(s): COLONOSCOPY Anesthesia History 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 When Was Last Pacemaker Check QUESTION #4 FULL TEXT: You/Your Family Experience fever (hyperthermia) with Anesthesia Last Oral Intake Last Oral intake: Last Oral Intake NPO since Meds taken in AM with sips of water? 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 Female Yes 01/14/24 10:21 HX of Motion Sickness No 01/14/24 10:21 HX of N/V After Surgery No 01/14/24 10:21 Non-Smoker Yes 01/14/24 10:21 Duration of Surgery greater No 01/14/24 10:21 than 60 minutes Number of Risk Factors 2 01/14/24 10:21 PONV Score Moderate Risk 01/14/24 10:21 Height & Weight Height & Weight: Anesthesia: Height & Weight Height 5 ft 5 in 12/17/23 14:05 Respiratory Assessment Respiratory Assessment - library circulation clerk: Respiratory Tract Infection Hx - library circulation clerk Hx Respiratory Tract Infection No 01/14/24 10:21 STOP Sleep Apnea STOP Sleep Apnea - library circulation clerk: STOP Sleep Apnea - library circulation clerk Hx Hypertension Yes: CONTROLLED WITH MEDS 01/14/24 10:21 Hx Sleep Apnea No 01/14/24 10:21 CPAP No 11/30/21 21:41 BIPAP No 11/30/21 21:41 Do you snore loudly (louder No 01/14/24 10:21 than talking or can be heard Do you often feel tired/ No 01/14/24 10:21 fatigued/ sleepy during daytime? Has anyone observed you stop No 01/14/24 10:21 breathing during sleep? STOP Results Negative 01/14/24 10:21 QUESTION #5 FULL TEXT : Do you snore loudly (louder than talking or can be heard through closed doors)? 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 Specify any problems Hx of Preganancy in last 3 No 01/14/24 10:21 Months Nurse Filling Out Transfusion SFRANTZ 01/14/24 10:21 & Questions: Date: 01/14/24 01/14/24 10:21 Time: 10:01/14/24 10:21 Patient unable to answer at this time (ie. confused, unrespo /Reproduction History /Reproductive History - library circulation clerk: /Reproductive Hx- library circulation clerk Hx Now No 01/14/24 10:21 Gestational Age (in weeks): EDC: Hx Hx Para Hx Section SAB No 01/14/24 10:21 Active Medications Active Medications: Current Medications Generic Name Dose Route Start Last Admin Trade Name Freq PRN Reason Stop Dose Admin Lactated Ringer's 1,000 mls @ 15 mls/hr 01/20/24 08:15 IV .Q48H STACEY PFSH Medical History Wears glasses Post-menopausal Alcohol use Thyroid disease Difficulty swallowing Gastric reflux Former smoker Hoarseness History of echocardiogram Brain TIA Laryngeal cancer HTN (hypertension) COPD (chronic obstructive pulmonary disease) Home Medications ?Medication ?Instructions ?Recorded ?Last Taken ?Type levothyroxine 75 mcg tablet 50 mcg PO MOTUWETHFR 11/30/21 Unknown History omeprazole 40 mg capsule,delayed 40 mg PO DAILY 11/30/21 Unknown History release aspirin 81 mg chewable tablet 81 mg PO BREAKFAST #30 tabs 12/01/21 Unknown Rx cholecalciferol (vitamin D3) 125 125 mcg PO DAILY 12/17/23 Unknown History mcg (5,000 unit) capsule lisinopril 10 mg tablet 10 mg PO DAILY 12/17/23 Unknown History levothyroxine 50 mcg tablet 100 mcg PO SUSA 01/14/24 Unknown History Allergy/AdvReac Type Severity Reaction Status Date / Time No Known Allergies Allergy Verified 01/14/24 10:13 Family History Sister Cancer ovarian Other CVA (cerebral vascular accident) Surgical History Hx of tracheostomy Hx of esophagogastroduodenoscopy Hx of colonoscopy History of surgery Laryngeal cancer Social History Smoking Status: Former smoker alcohol intake: current alcohol intake frequency: a few times a month Review of Systems (Anesthesia) ROS Narrative System reviewed and no additional complaints, except as documented.
[2024-01-20 08:25] VITALS: BP 141/82; PULSE 72; RESP 16; TEMP 36.1; O2SAT 100; BMI 17.9
[2024-01-20] MEDS: Lactated Ringers 1,000 ML 15 ML IV (08:30)
--- NOTE | 2024-01-20 09:05 | HP.PCM_ITS ---
HPI - General General Date of Service: 01/20/24 HPI Narrative LYN LOPEZ, is a 68 F who presents for colonoscopy due to positive Cologuard. Patient denies any changes since her last office visit. office visit 12/17/23 HPI HPI: 68-year-old presents due to positive Cologuard for colonoscopy. Patient had a colonoscopy [place] [address] Malone which was negative per patient. Patient has bowel movements daily denies any blood. Patient did have little issues with constipation in October however that has resolved. Patient also had an EGD with dilation due to her cancer. Patient denies any abdominal pain. Patient is on omeprazole 40 mg p.o. daily controls her reflux symptoms. Patient denies any family history of colon cancer. [facility] Medical History Wears glasses Post-menopausal Alcohol use Thyroid disease Difficulty swallowing Gastric reflux Former smoker Hoarseness History of echocardiogram Brain TIA Laryngeal cancer HTN (hypertension) COPD (chronic obstructive pulmonary disease) Home Medications ?Medication ?Instructions ?Recorded ?Last Taken ?Type levothyroxine 75 mcg tablet 50 mcg PO MOTUWETHFR 11/30/21 01/20/24 History omeprazole 40 mg capsule,delayed 40 mg PO DAILY 11/30/21 Unknown History release aspirin 81 mg chewable tablet 81 mg PO BREAKFAST #30 tabs 12/01/21 01/13/24 Rx cholecalciferol (vitamin D3) 125 125 mcg PO DAILY 12/17/23 Unknown History mcg (5,000 unit) capsule lisinopril 10 mg tablet 10 mg PO DAILY 12/17/23 01/20/24 History levothyroxine 50 mcg tablet 100 mcg PO SUSA 01/14/24 Unknown History Allergy/AdvReac Type Severity Reaction Status Date / Time No Known Allergies Allergy Verified 01/20/24 08:24 Family History Sister Cancer ovarian Other CVA (cerebral vascular accident) Surgical History Hx of tracheostomy Hx of esophagogastroduodenoscopy Hx of colonoscopy History of surgery Laryngeal cancer Social History Smoking Status: Former smoker alcohol intake: current alcohol intake frequency: a few times a month Past Medical/Surgical History Planned Operation Planned Operative Procedure(s): COLONOSCOPY Previous Hospitalizations/Surgeries HX Hospitalizations: No Any Problems With Anesthesia: No You/Your Family Experience Fever (Hyperthermia) With Anes: No Cholinesterase deficiency: No Cardiovascular Hx Chest Pain within Last 2 months: No Hx of Irregular Heartbeat and/or Afib: No Hx Heart Attack: No Hx Congestive Heart Failure: No Hx Rheumatic Fever: No Hx Hypertension: Yes (CONTROLLED WITH MEDS) Hx Internal Defibrillator: No Hx Pacemaker: No Hx Cardiac Catheterization: No Hx Cardiac Surgery/Stents/Etc.: No Hx Stress Test: No Hx Pain in Legs when Walking/Leg Cramps: No Respiratory Chronic Cough: No HX of Shortness of Breath: No Hoarseness: Yes Hx Chronic Obstructive Pulmonary Disease (COPD): Yes Hx Asthma: No Hx Emphysema: Yes Hx Sleep Apnea: No CPAP: No BIPAP: No Hx Respiratory Tract Infection/Cold (presently): No Do You Snore Loudly (louder than talking or can be heard): No Do You Often Feel Tired/ Fatigued/ Sleepy Dring Daytime?: No Has Anyone Observed You Stop Breathing During Sleep?: No Result (for STOP score): Negative Hx Smoking: No Smoking Status: Former smoker Gastrointestinal Controlled With Meds: No Hx Gastrointestinal Disorders: No Hx Gastrointestinal Bleed: No Hx Ulcer: No Hx Hiatal Hernia: No Difficulty Chewing/Swallowing: No Hx Unplanned Weight Loss of 20#: Yes Neurological Hx Seizures: No HX Syncope/Blackout Spells/Unconsciousness: No Hx Transient Ischemic Attacks (TIA): No Hx Multiple Sclerosis: No Hx Parkinson's Disease: No Hx Head/Neck Injury: No Hx Headaches: No Hx Back Injury/Pain: No Restless Legs: No Does patient have nerve stimulator: No Blood Disorder Hx Leukemia: No Bleeding Tendencies: No Hx Deep Vein Thrombosis: No Hx High Cholesterol: No Hx Hepatitis: No Hx Cirrhosis: No Hx Anemia: No Hx Blood Disorders: No Reproduction : No Hx Hysterectomy: No Hx Tubal Ligation: No Are You Post Menopause: No Genitourinary Hx Renal Disease: No Hx Dialysis: No Musculoskeletal Hx Arthritis: No Hx Rheumatoid Arthritis: No Endocrine Hx Diabetes: No Insulin: No Thyroid Disease: No Hx Steroid Therapy: No Psycho/Social Hx Substance Use: No Hx Alcohol Use: No Hx Anxiety: No Hx Depression: No Mental Illness: No Hx Dementia: No Miscellaneous Hx Cancer: Yes (larygeneal) Recent Exposure to Contagious Disease: No Any Loose Teeth: No Allergies No Known Allergies Allergy (Verified 01/20/24 08:24) Maternal: Family History Sister Cancer ovarian Other CVA (cerebral vascular accident) No pertinent history Discharge Is Pt Admitted From a Alf, or a Long Term: No Who Could Help: After D/C, Where Do you Plan to Go: Return Home From the [facility] History Number of Risk Factors: 4 Vital Signs Vital Signs Vital Signs: 01/20/24 08:25 01/20/24 08:25 Temperature 97 F L Temperature Source Temporal Pulse Rate 72 Respiratory Rate 16 Respiratory Pattern Normal Blood Pressure 141/82 H Blood Pressure Mean 101 Blood Pressure Source Monitor Blood Pressure Position Semi-Fowlers Blood Pressure Location Right Arm Pulse Ox 100 Oxygen Delivery Method Room Air Weight Weight: 108 lb 0.424 oz Body Mass Index (BMI) 17.9 Physical Exam Const alert, oriented x3 and no apparent distress HEENT normocephalic and head/scalp atraumatic HEENT Narrative: Trach in place Resp normal respiratory effort Cardio regular rate GI soft to palpation and non-tender; Negative for non-distended Palpation: Negative for guarding Extremity no clubbing, cyanosis or edema Skin no rashes or lesions noted Neuro CN's II-XII intact bilaterally Psych mental status grossly normal Assessment & Plan Assessment/Plan (1) Positive colorectal cancer screening using Cologuard test: Surgery Risks - Colonoscopy I discussed with the patient the risks of the procedure: Yes Risks Include but are not Limited To: Risks include but are not limited to: Bleeding, perforation requiring further surgery, inability to complete colonoscopy requiring barium enema.
--- NOTE | 2024-01-20 09:45 | COLBX_PTH ---
PATIENT: LYN LOPEZ LOC: EN U#:[id number] AGE/SX: 68/F ROOM: RE01/20/[address]: Dr. Joyce Krueger MD : 1955 BED: DIS: 01/20/2024 SPEC #: [id number] RECD: 01/20/24 13:52 STATUS: BRAULIO RELuz #: [id number] JAYE: 01/20/24 09:[address]: Joyce Krueger DEPT: SURGICAL PATHOLOGY RECD BY: Swetha Dior ENTERED: 01/21/24 10:07 SP TYPE: COLON BX OTHR DR: Ashanti Lucio PA-C Tissues: Sigmoid colon biopsy Procedures: Surgery Specimen Level IV HEADER OPERATION: Colonoscopy with polypectomy PRE-OP DIAGNOSIS: Positive colorectal cancer screening using Cologuard test TISSUE SUBMITTED: Sigmoid polyp MICROSCOPIC DIAGNOSIS Sigmoid polyp, polypectomy: Hyperplastic polyp. LUX/ 01/22/2024 MICROSCOPIC DESCRIPTION Slides are reviewed. GROSS DESCRIPTION Received in fixative is one container labeled with the patient's name and designated Sigmoid polyp. The specimen consists of a rivera pink polyp measuring 0.4 x 0.3 x 0.2cm. The entire specimen is submitted in one cassette. LUX/ 01/21/2024 TC:1 CPT:92282
--- NOTE | 2024-01-20 10:13 | OP.CCLET_ITS ---
01/20/2024 [facility] Re : Colonoscopy procedure for Little Lucio This procedure was performed on Saturday, January 20, 2024. My impressions and recommendations are as follows: Impressions : - One less than 5 mm polyp in the sigmoid colon, removed with a cold biopsy forceps. Resected and retrieved. - The examination was otherwise normal on direct and retroflexion views. Recommendations : - Discharge patient to home. - Resume previous diet. - Continue present medications. - Await pathology results. - Repeat colonoscopy in 5-10 years for surveillance based on pathology results. My findings are described in the full procedure note, which is enclosed. If I can be of further assistance, please feel free to contact me at Doctor phone number(s): , Work: . Sincerely, MD Joyce Cloud MD 01/20/2024 10:13:17 AM This report has been signed electronically.
--- NOTE | 2024-01-20 10:13 | OP.COLON_ITS ---
Patient Name: Little Ramos Procedure Date: 01/20/2024 9:30 AM Date of : 1955 Age: 68 Procedure: Colonoscopy Indications: Positive Cologuard test Providers: Joyce Krueger MD Referring MD: Ashanti Lucio Medicines: Monitored Anesthesia Care Patient Profile: This is a 68 year old female. Last Colonoscopy: 2013. Complications: No immediate complications. Procedure: Pre-Anesthesia Assessment: - Prior to the procedure, a History and Physical was performed, and patient medications and allergies were reviewed. The patient's tolerance of previous anesthesia was also reviewed. The risks and benefits of the procedure and the sedation options and risks were discussed with the patient. All questions were answered, and informed consent was obtained. Prior Anticoagulants: The patient has taken no anticoagulant or antiplatelet agents. ASA Grade Assessment: Per anesthesia. After reviewing the risks and benefits, the patient was deemed in satisfactory condition to undergo the procedure. After I obtained informed consent, the scope was passed under direct vision. Throughout the procedure, the patient's blood pressure, pulse, and oxygen saturations were monitored continuously. The Colonoscope was introduced through the anus and advanced to the cecum, identified by the appendiceal orifice, ileocecal valve and palpation. The colonoscopy was performed without difficulty. The patient tolerated the procedure well. The quality of the bowel preparation was good. Scope In: 9:47:05 AM Scope Withdrawal Time 0 hours 13 minutes 19 seconds Scope Out: 10:09:12 AM Total Procedure Duration Time 0 hours 22 minutes 7 seconds Findings: The perianal and digital rectal examinations were normal. A less than 5 mm polyp was found in the sigmoid colon. The polyp was sessile. The polyp was removed with a cold biopsy forceps. Resection and retrieval were complete. The exam was otherwise without abnormality on direct and retroflexion views. Impression: - One less than 5 mm polyp in the sigmoid colon, removed with a cold biopsy forceps. Resected and retrieved. - The examination was otherwise normal on direct and retroflexion views. Recommendation: - Discharge patient to home. - Resume previous diet. - Continue present medications. - Await pathology results. - Repeat colonoscopy in 5-10 years for surveillance based on pathology results. Procedure Code(s): --- Professional --- 73770, PT, Colonoscopy, flexible; with biopsy, single or multiple Diagnosis Code(s): --- Professional --- D12.5, Benign neoplasm of sigmoid colon R19.5, Other fecal abnormalities CPT copyright 2021 [employer]. All rights reserved. The codes documented in this report are preliminary and upon car framer review may be revised to meet current compliance requirements. MD Joyce Cloud MD 01/20/2024 10:13:17 AM This report has been signed electronically. Number of Addenda: 0 Note Initiated On: 01/20/2024 9:30 AM
--- NOTE | 2024-01-20 10:20 | PCM.POST.ANE ---
Anesthesia: Postop Eval I Current Vital Signs Temperature: 97 F Pulse Rate: 16 Blood Pressure: 116/68 Respiratory Rate: 16 Pulse Ox: 100 Oxygen Delivery Method: Room Air Assessment Airway patent: Yes Spontaneous unlabored respirations: Yes Mental status: Awake and Calm nausea: No Vomiting: No Anesthesia Complication: No Fluid Hydration Crystalloid volume administer (ml): 600 Total IV fluid infused: 600 Progress Note Anesthesia document: Postop Eval 1 completed: Yes
[2024-01-20 10:25] VITALS: BP 116/68; BP 141/82; PULSE 60; RESP 14; TEMP 36.1; O2SAT 100
[2024-01-20 10:29] VITALS: BP 116/68; PULSE 16; RESP 16; TEMP 36.1; O2SAT 100
--- NOTE | 2024-01-20 10:29 | PCM.POSTANE2 ---
Anesthesia Postop Eval I Sum Postop Eval Completion status Anesthesia document: Postop Eval 1 completed: Yes Anesthesia Postop Eval I Summary Anesthesia Postop Eval I Summary: Anesthesia Postop Eval I: Assessment Summary Airway patent Yes 01/20/24 10:29 [email or web address] Spontaneous unlabored Yes 01/20/24 10:29 [email or web address] respirations Mental status Awake,Calm 01/20/24 10:29 [email or web address] nausea No 01/20/24 10:29 [email or web address] Vomiting No 01/20/24 10:29 [email or web address] Anesthesia Postop Eval I: Fluid Summary Crystalloid volume administer 600 01/20/24 10:29 [email or web address] (ml) Colloids volume administered ( ml) Blood Product volume administered (ml) Total IV fluid infused 600 01/20/24 10:29 [email or web address] Anesthesia Postop Eval I: Summary Notes Anesthesia Complication No 01/20/24 10:29 [email or web address] Anesthesia Complication Comment: Post-operative progress note Anesthesia: Postop Eval II Evaluation Mental status: Awake Pain Level: 0 nausea: No Vomiting: No
[2024-01-20 10:30] VITALS: BP 122/77; BP 141/82; PULSE 58; RESP 16; O2SAT 100
[2024-01-20 10:35] VITALS: BP 136/80; BP 141/82; PULSE 56; RESP 16; TEMP 36.6; O2SAT 100
[2024-01-20 10:50] VITALS: BP 141/82
== END 2024-01-20 11:02 | disposition home or self-care (01) ==
LOC: EN 08:11 → AC 08:11
PROVIDERS: PCP Family Medicine; Referring Provider Family Medicine; Visit Provider Surgery
PROC: 0DJD8ZZ Inspection of Lower Intestinal Tract, Via Natural or Artificial Opening Endoscopic (ICD-10-PCS; CPT 45378; principal; 2024-01-20 09:40)
DX: R19.5 Other fecal abnormalities (principal); Z93.0 Tracheostomy status; J44.9 Chronic obstructive pulmonary disease, unspecified; K63.5 Polyp of colon; Z87.891 Personal history of nicotine dependence; I10 Essential (primary) hypertension; Z79.82 Long term (current) use of aspirin; Z79.899 Other long term (current) drug therapy; Z86.73 Personal history of transient ischemic attack (TIA), and cerebral infarction without residual deficits
CPT/HCPCS: 45380; 88305; J7120; J2405

== ENCOUNTER 2024-06-29 16:51 | Emergency (ER) | payer BC, MEDICARE, SELFPAY ==
[2024-06-29 16:52] VITALS: BP 137/68; PULSE 105; RESP 16; TEMP 36.1; O2SAT 99; BMI 18.8
--- NOTE | 2024-06-29 19:57 | CT_ITS ---
EXAM: CT ABDOMEN AND PELVIS WITHOUT INTRAVENOUS CONTRAST CLINICAL INDICATION: left hip/pelvis/ flank pain, HX of esophageal CA TECHNIQUE: Helically acquired images were obtained of the abdomen and pelvis without intravenous contrast. This CT exam was performed using one or more of the following dose reduction techniques: automated exposure control, adjustment of the mA and/or kV according to patient size, and/or use of iterative reconstruction technique. COMPARISON: PET/CT, 09/12/2015. FINDINGS: LOWER THORAX: There are multiple new right lower lobe and left lower lobe pulmonary nodules, the largest visualized measuring up to approximately 5 mm, likely indicative of metastatic disease given the history of malignancy. Centrilobular emphysema. Patulous distal esophagus is nonspecific. No cardiomegaly. No significant pericardial effusion. ABDOMEN: LIVER: No significant abnormality. Homogeneous. GALLBLADDER AND BILE DUCTS: No significant abnormality. No calcified gallstones. No gallbladder distention or wall edema. No intra- or extrahepatic biliary ductal dilation. PANCREAS: No significant abnormality. No focal cystic mass. SPLEEN: No significant abnormality. Normal size without focal cystic or solid mass. ADRENALS: No significant abnormality. No nodules. KIDNEYS AND URETERS: No significant abnormality. Normal renal size and position. No hydronephrosis. STOMACH AND BOWEL: No significant abnormality. No stomach or bowel distention. No focal inflammatory change. PELVIS: APPENDIX: No evidence of acute appendicitis. BLADDER: No significant abnormality. REPRODUCTIVE: Status post tubal ligation. ABDOMEN and PELVIS: INTRAPERITONEAL SPACE: Surgical clips in the epigastric region. No ascites or other fluid collection. BONES/JOINTS: Degenerative changes in the axial and appendicular skeletal structures with apex right curvature. No suspicious lytic or blastic abnormality. SOFT TISSUES: No significant abnormality. No discrete abdominal or pelvic wall hernia. VASCULATURE: Atherosclerosis. Abdominal aorta is non-dilated. LYMPH NODES: No significant abnormality. No enlarged lymph nodes. CT/Abdomen/Pelvis without Cont IMPRESSION: There are multiple new right lower lobe and left lower lobe pulmonary nodules, the largest visualized measuring up to approximately 5 mm, likely indicative of metastatic disease given the history of malignancy. No additional acute findings. Electronically Signed: Eduin Crowell DO at 21:20 EST ,
--- NOTE | 2024-06-29 19:58 | ED.VIS.LOWEX ---
HPI History of Present Illness Chief Complaint: Lower Extremity Injury Detail of Chief Complaint: Left hip pain Informant: patient Narrative Narrative: Patient presents with left hip pain that started May 25. She denies trauma. Patient initially was given a muscle relaxer Flexeril by her primary care physician but is not helping her pain. Advil and Tylenol not helping. She has history of laryngeal cancer that is in remission diagnosed in 2016. Patient denies fever. She denies weakness to the extremity. She denies paresthesias. Pain isolated mostly over the lateral aspect of the left hip and pelvis PFSH PFS Medical History Wears glasses Post-menopausal Alcohol use Thyroid disease Difficulty swallowing Gastric reflux Former smoker Hoarseness History of echocardiogram Brain TIA Laryngeal cancer HTN (hypertension) COPD (chronic obstructive pulmonary disease) Home Medications ?Medication ?Instructions ?Recorded ?Last Taken ?Type levothyroxine 75 mcg tablet 50 mcg PO MOTUWETHFR 11/30/21 01/20/24 History omeprazole 40 mg capsule,delayed 40 mg PO DAILY 11/30/21 Unknown History release aspirin 81 mg chewable tablet 81 mg PO BREAKFAST #30 tabs 12/01/21 01/13/24 Rx cholecalciferol (vitamin D3) 125 125 mcg PO DAILY 12/17/23 Unknown History mcg (5,000 unit) capsule lisinopril 10 mg tablet 10 mg PO DAILY 12/17/23 01/20/24 History levothyroxine 50 mcg tablet 100 mcg PO SUSA 01/14/24 Unknown History hydrocodone-acetaminophen 5-325mg 1 tab PO Q4H PRN PRN Pain 2 days 06/29/24 Unknown Rx 5mg-325mg #15 TABLETS Allergy/AdvReac Type Severity Reaction Status Date / Time No Known Allergies Allergy Verified 06/29/24 16:52 Family History Sister Cancer ovarian Other CVA (cerebral vascular accident) Surgical History Hx of tracheostomy Hx of esophagogastroduodenoscopy Hx of colonoscopy History of surgery Laryngeal cancer Social History Smoking Status: Former smoker alcohol intake: current alcohol intake frequency: a few times a month ROS ROS ED Review of Systems ROS Unobtainable: other Constitutional Constitutional ED: Reports lethargy; Denies chills, fever(s), sweats or weight loss Eyes Eyes: Denies blurry vision, change in vision or diplopia ENT ENT ED: Denies rhinorrhea or sore throat Cardiovascular Cardiovascular: Denies chest pain, orthopnea or racing heartbeat Respiratory/Chest Respiratory/Chest: Denies cough, dyspnea, dyspnea on exertion, orthopnea or sputum Gastrointestinal Gastrointestinal: Denies abdominal pain, diarrhea, nausea or vomiting Genitourinary Genitourinary ED: Denies dysuria, hematuria or urinary frequency Musculoskeletal Musculoskeletal: Reports other Details: Left hip pain ; Denies arthralgias, back pain, myalgias or neck pain Integumentary Denies abscess, Abrasions or rash Neurologic Neurologic: Denies headache(s) or weakness Psychiatric Psychiatric: Denies anxiety, depression or suicidal thoughts Endocrine Endocrinology: Denies polydipsia, polyphagia or polyuria Hematologic/Lymphatic Hematologic/Lymphatic: Denies easy bleeding, easy bruising or lymphadenopathy Allergic/Immunologic Allergic/Immunologic ED: Denies mouth swelling, tongue swelling or urticaria EXAM Physical Exam Const Vital Signs: 06/29/24 16:52 06/29/24 21:00 Temperature 97.0 F L Temperature Source Temporal Pulse Rate 105 H 83 Respiratory Rate 16 16 Blood Pressure 137/68 H 137/93 H Blood Pressure Mean 91 107 Pulse Ox 99 100 Oxygen Delivery Method Room Air Room Air Positive well nourished and well developed General Appearance ED: well developed and NAD HEENT Reports TM's clear and moist mucous membranes normocephalic and atraumatic; Negative for trauma or tenderness Tympanic Membrane ED: Yes TM's clear Eyes PERRL and EOMs intact bilaterally General Eye ED: Negative for pale conjunctiva or scleral icterus Neck no lymphadenopathy, supple and no JVD General: Negative for tenderness Chest Wall inspection of chest normal and palpation of chest normal Chest: Negative for tenderness Resp normal respiratory effort and clear to auscultation bilaterally Effort and Inspection: Negative for respiratory distress or pain with movement Auscultation: Negative for rhonchi, wheezes or diminished lung sounds Cardio regular rate, regular rhythm, S1 normal heart sound, S2 normal heart sound and no murmurs Peripheral Pulses: pulses 2+ throughout GI normal to inspection, nondistended, normoactive bowel sounds, soft to palpation, non-tender, non-distended and no masses Back/Spine no CVA tenderness and no thoracic nor lumbar tenderness Back/Spine Narrative: No pain on palpation of the thoracic or lumbar spine. There are negative straight leg raises. Deep tendon reflexes plus 2 out of 4 bilaterally at the patella and Achilles. She has normal 5 extension bilaterally. Normal sensation. No erythema or warmth noted to the hip. She has good range of motion Extremity normal to inspection General Extremety ED: Negative for edema General Extremity: Negative for edema Neuro oriented x3, CN's II-XII intact bilaterally, no sensory deficits noted and gait normal Sensorium / Orientation: awake, alert, oriented to person, oriented to place and oriented to time Motor Exam: strength 5/5 throughout and strength abnormal Psych mental status grossly normal Skin no rashes or lesions noted and no wounds MDM MDM MDM Narrative Medical decision making narrative: Patient presents with left hip pain without trauma and history of esophageal cancer remotely. Pain is not reproducible on exam and not consistent with sciatica. Given her history of cancer there was concern for possible bony metastasis that would cause pain. Patient was given a milligram of Dilaudid IM. I did obtain a CT scan of the abdomen pelvis without contrast that radiology read as multiple new right lower lobe and left lower lobe pulmonary nodules the largest measuring up to 5 mm likely indicative of metastatic disease given history of malignancy. No other significant findings noted. Evaluation of the bones of the abdomen pelvis did not reveal any lytic lesions. After treatment she was feeling improved. At this point we will write her prescription for [place] for pain and advised that she follow-up with her oncologist. She may need further testing such as possibly bone scan or MRI to evaluate further. Lab Data Attestation: I reviewed the patient's lab results. Radiography Diagnostic Testing: Clinical Impression(s) from Imaging Studies Abdomen/Pelvis CT 06/29/24 19:57 IMPRESSION: There are multiple new right lower lobe and left lower lobe pulmonary nodules, the largest visualized measuring up to approximately 5 mm, likely indicative of metastatic disease given the history of malignancy. No additional acute findings. Electronically Signed: Eduin Crowell DO at 21:20 EST , Discharge Plan Triage Chief Complaint: Lower Extremity Injury ED Provider: Mackenzie Vallejo Dx/Rx/DC Orders Clinical Impression: Acute pain of left hip Instructions: ED Pain, Acute, Uncertain Cause Prescriptions: New hydrocodone-acetaminophen 5-325 mg tablet 1 tab PO Q4H PRN PRN (Reason: Pain) 2 Days Qty: 15 0RF No Action lisinopril 10 mg tablet 10 mg PO DAILY cholecalciferol (vitamin D3) 125 mcg (5,000 unit) capsule 125 mcg PO DAILY omeprazole 40 mg capsule,delayed release(DR/EC) 40 mg PO DAILY Patient Comments: TAKE 1 CAPSULE BY MOUTH ONCE DAILY levothyroxine 75 mcg tablet 50 mcg PO MOTUWETHFR aspirin 81 mg Tablet,Chewable 81 mg PO BREAKFAST Qty: 30 11RF levothyroxine 50 mcg tablet 100 mcg PO SUSA Primary Care Provider: Ashanti Lucio Referrals: Ashanti Lucio, PA-C [Primary Care Provider] - Activity Restrictions/Additional Instructions: You have nodules that were noted on CT scan today in both lungs that are concerning for metastatic disease/malignancy. Please follow-up with your oncologist for further testing and treatment. Print Language: Setswana Disposition Disposition: Home, Self Care
[2024-06-29] MEDS: HYDROmorphone 1 MG/ML Syringe IM (20:05)
[2024-06-29 21:00] VITALS: BP 137/93; PULSE 83; RESP 16; O2SAT 100
[2024-06-29 22:13] VITALS: BP 175/98; PULSE 87; RESP 16; TEMP 36.9; O2SAT 98
== END 2024-06-29 22:20 | disposition home or self-care (01) ==
PROVIDERS: Emergency Provider Emergency Medicine; PCP Family Medicine; Visit Provider Emergency Medicine
DX: M25.552 Pain in left hip (principal); J44.9 Chronic obstructive pulmonary disease, unspecified; R91.8 Other nonspecific abnormal finding of lung field; I10 Essential (primary) hypertension; E07.9 Disorder of thyroid, unspecified; Z79.82 Long term (current) use of aspirin; Z79.890 Hormone replacement therapy; Z79.899 Other long term (current) drug therapy; Z87.891 Personal history of nicotine dependence; Z85.21 Personal history of malignant neoplasm of larynx
CPT/HCPCS: 74176; 96372; 99282

== ENCOUNTER 2024-07-17 16:04 | Inpatient (IN) | payer BC, MEDICARE, SELFPAY ==
[2024-07-17] VITALS (7 sets, daily range): BP systolic 129–167; BP diastolic 98–110; PULSE 89–113; RESP 16–24; TEMP 36.8–37.1; O2SAT 96–100; BMI 18.8; BMI 18.1
--- NOTE | 2024-07-17 16:16 | EDS_ITS ---
HPI History of Present Illness Chief Complaint: General Illness [facility] Medical History Wears glasses Post-menopausal Alcohol use Thyroid disease Difficulty swallowing Gastric reflux Former smoker Hoarseness History of echocardiogram Brain TIA Laryngeal cancer HTN (hypertension) COPD (chronic obstructive pulmonary disease) Home Medications ?Medication ?Instructions ?Recorded ?Last Taken ?Type levothyroxine 75 mcg tablet 50 mcg PO MOTUWETHFR 11/30/21 01/20/24 History omeprazole 40 mg capsule,delayed 40 mg PO DAILY 11/30/21 Unknown History release aspirin 81 mg chewable tablet 81 mg PO BREAKFAST #30 tabs 12/01/21 01/13/24 Rx cholecalciferol (vitamin D3) 125 125 mcg PO DAILY 12/17/23 Unknown History mcg (5,000 unit) capsule lisinopril 10 mg tablet 10 mg PO DAILY 12/17/23 01/20/24 History levothyroxine 50 mcg tablet 100 mcg PO SUSA 01/14/24 Unknown History Allergy/AdvReac Type Severity Reaction Status Date / Time No Known Allergies Allergy Verified 07/17/24 16:08 Family History Sister Cancer ovarian Other CVA (cerebral vascular accident) Surgical History Hx of tracheostomy Hx of esophagogastroduodenoscopy Hx of colonoscopy History of surgery Laryngeal cancer Social History Smoking Status: Former smoker alcohol intake: current alcohol intake frequency: a few times a month EXAM Physical Exam Const Vital Signs: 07/17/24 16:05 07/17/24 16:08 07/17/24 16:24 Temperature 98.7 F 98.7 F Temperature Source Oral Oral Pulse Rate 113 H 101 H Respiratory Rate 18 21 H Respiratory Effort Normal Respiratory Pattern Normal Blood Pressure 129/105 H 162/107 H Blood Pressure Mean 113 125 Pulse Ox 99 100 Oxygen Delivery Method Room Air Room Air 07/17/24 17:08 07/17/24 18:00 07/17/24 19:09 Temperature 98.5 F 98.5 F 98.5 F Temperature Source Oral Oral Pulse Rate 106 H 94 99 Respiratory Rate 24 H 19 H 23 H Respiratory Effort Respiratory Pattern Blood Pressure 167/110 H 165/100 H 160/105 H Blood Pressure Mean 129 121 123 Pulse Ox 96 100 99 Oxygen Delivery Method Room Air Room Air 07/17/24 20:00 Temperature Temperature Source Pulse Rate 95 Respiratory Rate 16 Respiratory Effort Respiratory Pattern Blood Pressure 131/98 H Blood Pressure Mean 109 Pulse Ox 98 Oxygen Delivery Method Room Air [facility] [place] MDM MDM Narrative Medical decision making narrative: HISTORY OF PRESENT ILLNESS: 68year-old female presents with concern for decreased appetite and diffuse weakness. She notes she initially presented to urgent care secondary to green phlegm and drainage from trach stoma. She was seen in urgent care and are concerned about her having jaundice. She endorses a chronic cough. REVIEW OF SYSTEMS: Pertinent positives: Yellow discoloration of the skin. Pertinent negatives: Vomiting, headache, focal weakness, shortness of breath, fever PHYSICAL EXAM: Nursing triage notes reviewed, Vital signs reviewed Constitutional: please see mdm HENT: MMM Eyes: Pupils equal round and reactive to light, Extraocular muscles intact Neck: No stridor, no JVD, full neck ROM Lungs: Clear to auscultation, No wheezing or rales. No increased work of breathing, no conversational dyspnea, no accessory muscle use, no nasal flaring. No respiratory distress noted Heart: Regular rate and rhythm, No murmurs, No rubs and No gallops, 2+ distal pulses (radial, femoral, posterior tibial) in all extremities Abdomen: Soft, there is no tenderness, rigidity, rebound or guarding, no obvious peritoneal signs, no palpable pulsatile abdominal masses, no auscultated abdominal bruit : No CVAT Extremities: No edema Neuro: No new focal neurological deficits, cranial nerves II through XII intact, 5/5 strength in all present extremities. Intact sensation to light touch in all present extremities, 2+ reflexes bilateral patella tendons. Skin: No rash or lesions noted MEDICAL DECISION MAKING: Chief Complaint: Jaundice, decreased appetite and diffuse weakness External records reviewed: CT scan of the abdomen pelvis without contrast from June 29, 2024 shows no significant abnormality Factors affecting care: History of laryngeal mass, COPD, hypertension, status post trach secondary to respiratory failure Social determinants of health: none History obtained from others: Family Consults: Gastroenterology, Internal Medicine MDM Narrative: The patient was initially Tachycardic rate of 113 otherwise afebrile and nontoxic-appearing. Exam without abdominal TTP. No right upper quadrant TTP, negative Gage sign. Skin exam with significant jaundice. Eye exam with significant scleral icterus. I considered the following differential diagnosis: Hepatobiliary obstruction, acute cholecystitis, pancreatitis, intra-abdominal mass, Tylenol poisoning, viral hepatitides, Budd-Chiari ALL IMAGES (IF OBTAINED) HAVE BEEN PERSONALLY REVIEWED AND INTERPRETED BY MYSELF. CT scan of the abdomen pelvis read and personally reviewed by myself showed evidence of the pancreatic head mass. Urologist agrees my interpretation. Lipase elevated consistent with obstructive pancreatitis LFTs with elevations in total and direct bilirubin, AST ALT and alk phos consistent with obstructive hepatobiliary pathology CBC without leukocytosis, there is mild anemia, there is no thrombocytopenia Liver synthetic function intact with normal PT and INR Tylenol level negative Gallbladder ultrasound showed no evidence of acute cholecystitis or showed ev idence of pancreatic head mass Upon reevaluation the patient's heart rate improved to 95. Abdomen remained benign. The synthesis of the patient's history, physical exam, labs images suggest obstructive jaundice secondary to pancreatic head mass. Discussed the case with the GI doctor on-call Dr. Harden who noted he would be able to intervene and patient is appropriate for admission to [facility]. Discussed with hospitalist Dr. Irwin recommended [facility]. The patient and/or family, caregivers express understanding. The patient and/or family, caregivers agrees with the plan. Shared decision making: I will have a discussion with the patient and or visitors regarding risk/benefits of further testing or admission. They will be made aware of of the risk/benefits inherent in this decision they will be given the opportunity to voice understanding. Total critical care time today provided was at least 0 minutes. This excludes separately billable procedures. Critical care time (if documented) is secondary to the patient having high probability of clinically significant/life threatening deterioration in the patient's condition which required my urgent intervention. Impression: 1. Obstructive jaundice 2. Hyperbilirubinemia 3. Pancreatic head mass 4. Elevated lipase Dispo: Admit This note was generated with [employer] dictation software. It may contain incorrect words, spelling, and punctuation that were not noted in review of the chart prior to signing. Lab Data Labs: Laboratory Results - last 24 hr 07/17/24 07/17/24 16:39 18:28 WBC 9.1 RBC 4.02 L Hgb 10.1 L Hct 32.2 L MCV 80.1 L MCH 25.1 L MCHC 31.4 L RDW Std Deviation 55.0 H RDW Coeff of Cecelia 18.9 H Plt Count 370 MPV 9.1 Immature Gran % (Auto) 0.500 Neut % (Auto) 83.1 H Lymph % (Auto) 7.7 L Aiken % (Auto) 7.4 Eos % (Auto) 0.8 Baso % (Auto) 0.5 Absolute Neuts (auto) 7.6 Absolute Lymphs (auto) 0.70 L Nucleated RBC % 0 PT 12.5 INR 0.9 Sodium 128 L Potassium 4.1 Chloride 93 L Carbon Dioxide 28.0 Anion Gap 6 BUN 9 Creatinine 0.99 Estim Creat Clear Calc 44.82 Est GFR (MDRD) Af Amer 72 Est GFR (MDRD) Non-Af 60 BUN/Creatinine Ratio 9.1 L Glucose 115 H Lactic Acid 1.3 Calcium 9.9 Total Bilirubin 8.10 H Direct Bilirubin 6.71 H AST 222 H ALT 311 H Alkaline Phosphatase 687 H Total Protein 7.8 Albumin 3.2 Globulin 4.6 H Lipase 3235 H Acetaminophen < 2.0 L Radiography Diagnostic Testing: Clinical Impression(s) from Imaging Studies Gallbladder Ultrasound 07/17/24 16:56 IMPRESSION: Pancreatic head mass. Sludge or mass in the distal common bile duct. Significant biliary dilatation. Electronically Signed: Agustín Rodríguez DO at 19:34 EST , Abdomen/Pelvis CT 07/17/24 16:57 IMPRESSION: Up to 6 mm nodular densities in the visualized right lung base. Significant biliary dilatation. Moderately distended gallbladder. Ductal dilatation in the pancreas. There is a pancreatic head mass compatible with malignancy. Distal esophageal dilatation. Left retroperitoneal adenopathy. Electronically Signed: Agustín Rodríguez DO at 19:25 EST , ADDENDUM: 07/17/241941 IMPRESSION: undefined Discharge Plan Triage Chief Complaint: General Illness ED Provider: Dimitri Flores Dx/Rx/DC Orders Primary Care Provider: Ashanti Lucio
--- NOTE | 2024-07-17 16:56 | US_ITS ---
INDICATION: jaundice EXAMINATION: Ultrasound US Abdomen Limited (quadrant) TECHNIQUE: Lundberg scale and color doppler imaging was performed of the right upper quadrant. COMPARISON: FINDINGS: LIVER: There is normal echotexture measuring 12.6 cm. No focal hepatic lesion. There is no free fluid. GALLBLADDER AND BILIARY TREE: Moderately distended with no shadowing gallstone, pericholecystic fluid or gallbladder wall thickening is demonstrated. Mild sludge is noted. The proximal common bile duct measures 19 mm, which is dilated with a possible intraluminal mass estimated at 5.4 x 3.3 x 3.5 cm.. Songraphic Gage''s sign: PANCREAS: Suboptimal visualization of the pancreas. Pancreatic head mass is suspected measuring 3.2 x 3.3 x 2.5 cm. RIGHT KIDNEY: 8.3 x 4.2 x 4.7 cm. The cortex is 10 mm. No hydronephrosis. US/Gallbladder IMPRESSION: Pancreatic head mass. Sludge or mass in the distal common bile duct. Significant biliary dilatation. Electronically Signed: Agustín Rodríguez DO at 19:34 EST ,
--- NOTE | 2024-07-17 16:57 | EKG12_ITS ---
Test Reason : GENERAL Blood Pressure : */* mmHG Vent. Rate : 95 BPM Atrial Rate : 95 BPM P-R Int : 140 ms QRS Dur : 80 ms QT Int : 330 ms P-R-T Axes : 70 -66 67 degrees QTcB Int : 414 ms Sinus rhythm with marked sinus arrhythmia Left anterior fascicular block Abnormal ECG Confirmed by DALTON CORONADO, DOMENICA ([id number]), fan mail editor AMANDA MALCOLM ([id number]) on 07/20/2024 6:45:43 AM Referred By: Confirmed By: DOMENICA HOFFMAN MD
--- NOTE | 2024-07-17 16:57 | CT_ITS ---
STUDY: CT ABDOMEN AND PELVIS WITH CONTRAST REASON FOR EXAM: Female, 68 years old. jaundice RADIATION DOSAGE (If Supplied By Facility): CTDIvol = ( 8.50 ) mGy, DLP = ( 341.39 ) mGycm TECHNIQUE: Transaxial images were obtained from the dome of the diaphragm to the symphysis pubis without oral contrast. IV 100mL Isovue-370 was administered. Sagittal and coronal images were reconstructed. Individualized dose optimization techniques were used for this CT. COMPARISON: None. FINDINGS: Up to 6 mm nodular densities in the visualized right lung base. The visualized portions of the heart are within normal limits. Significant biliary dilatation in the liver. Moderately distended gallbladder with dilatation of the extrahepatic biliary system. Normal spleen. Ductal dilatation in the pancreas. There is a pancreatic head mass measuring 4.2 x 3.4 x 3.2 cm. Normal bilateral adrenal glands. Bilateral renal cysts. Normal visualized stomach. Dilated visualized distal esophagus. Normal small intestine. Normal colon. The appendix is visualized and appears normal. Normal abdominal aorta. Normal inferior vena cava. 3 cm necrotic node in the left retroperitoneum. Normal urinary bladder. Normal abdominal wall. Degenerative vertebral changes and scoliosis. CT/Abdomen/Pelvis W IV Cont ONLY IMPRESSION: Up to 6 mm nodular densities in the visualized right lung base. Significant biliary dilatation. Moderately distended gallbladder. Ductal dilatation in the pancreas. There is a pancreatic head mass compatible with malignancy. Distal esophageal dilatation. Left retroperitoneal adenopathy. Electronically Signed: Agustín Rodríguez DO at 19:25 EST ,
[2024-07-17] MEDS: Ondansetron 4 MG/2 ML Vial IV (17:06)
[2024-07-17 17:10] LABS: Absolute Neutrophil Count 7.6 X10^3/uL (2.0-7.7); Basophil# 0.05 X10^3/uL; Basophil% 0.5 % (0-1); Eosinophil# 0.07 X10^3/uL; Eosinophils% 0.8 % (0-5); Hematocrit 32.2 % (37-47); Hemoglobin 10.1 g/dL (12.0-15.0); Lymphocyte % 7.7 % (19-41); Mean Corp Hgb Conc 31.4 g/dL (32-36); Mean Corpuscular Hgb 25.1 pg (27.0-32.0); Mean Corpuscular Volume 80.1 fL (81-99); Mean Platelet Vol. 9.1 fl (6.2-12.0); Monocyte# 0.68 X10^3/uL; Monocyte% 7.4 % (0-10); NRBC Flagged by Analyzer 0 % (0-5); Neutrophil # 7.58 X10^3/uL (2.7-7.7); Neutrophil % 83.1 % (47-70); Platelet Count 370 K/mm3 (150-450); RBC Distribution Width CV 18.9 % (11.6-14.6); Red Blood Count 4.02 M/mm3 (4.2-5.4); White Blood Count 9.1 K/mm3 (4.4-11.0)
[2024-07-17 17:19] LABS: International Normalized Ratio 0.9; Prothrombin Time (Protime)PT. 12.5 SECONDS (11.7-14.9)
[2024-07-17 17:26] LABS: Lactic Acid 1.3 mmol/L (0.4-1.9)
[2024-07-17 18:05] LABS: AST(SGOT) 222 U/L (15-37); Alanine Aminotransfer ALT/SGPT 311 U/L (13-56); Albumin, Serum 3.2 g/dL (3.2-5.0); Alkaline Phosphatase 687 U/L (45-117); Anion Gap 6 (5-15); BUN 9 mg/dL (7-18); BUN/Creat Ratio 9.1 RATIO (10-20); Bilirubin, Direct 6.71 mg/dL (0.00-0.30); Calcium,Total 9.9 mg/dL (8.5-10.1); Chloride 93 mmol/L (98-107); Creatinine, Serum 0.99 mg/dL (0.55-1.02); EST Glomerular Filtration Rate 60 mL/min (>60); Est Glom Filt Rate - Afr Amer 72 mL/min (>60); Estimated Creatinine Clearance 44.82 ml/min; Globulin 4.6 g/dL (2.2-4.2); Glucose 115 mg/dL (74-106); Lipase 3235 U/L (13-75); Potassium 4.1 mmol/L (3.5-5.1); Protein, Total 7.8 g/dL (6.4-8.2); Sodium Level 128 mmol/L (136-145)
[2024-07-17 19:58] LABS: Acetaminophen (Tylenol) Level < 2.0 ug/mL (10.0-30.0)
--- NOTE | 2024-07-17 20:12 | HP.PCM.HOS_ITS ---
[facility] - General General Date of Admission: 07/17/24 Date of Service: 07/17/24 Chief Complaint: Decreased Appetite, Generalized Weakness and Jaundice. HPI Narrative LYN LOPEZ, is a 68 F with a past medical history of essential hypertension; on lisinopril, hypothyroidism; on levothyroxine, history of tobacco abuse; with subsequent COPD and chronic cough, history of laryngeal cancer (2015); with subsequent tracheostomy and stoma; s/p chemotherapy and radiation, history of esophageal stenosis with chronic dysphagia; s/p EGD with dilatation, history of benign liver mass; s/p excision (2015), history of TIA (2021), GERD; on omeprazole and OA who presents to [facility] ER complaining of decreased appetite, diffuse weakness and jaundice. Ms. Lopez reports her symptoms began approximately 1 week prior to admission with a gradual-onset of decreased appetite and generalized weakness followed by the abrupt onset of severe jaundice. She initially presented to urgent care due to green sputum emanating from her tracheal stoma with additional concerns about her jaundice. She admits to a chronic cough that is only slightly worse than normal. She denies associated fever, chills, nausea, vomiting, diarrhea, constipation, abdominal pain, chest pain or shortness of breath. In the ER she was noted to have CT this admission positive for evidence of ~4.2 cm x ~3.4 cm x ~3.2 cm Pancreatic Head Mass complicated by suspected Choledocholithiasis with questionable intraluminal density in CBD consistent with sludge or mass with corresponding laboratory evidence of Severe Hyperbilirubinemia of 8.1 mg/dL and direct bilirubin of 6.71 mg/dL present on admission along with evidence of Transaminitis with AST 222 U/L, ALT 311 U/L and Alkaline Phosphatase of 687 U/L due to suspected newly diagnosed Pancreatic Cancer compounded by elevated serum Lipase of 3,235 U/L present on admission indicative of Acute Pancreatitis likely due to CBD stone or sludge compounding along with laboratory evidence of Mild Hyponatremia of 128 mmol/L present on admission and she was then admitted to the general medical floor for ongoing care for stay that is expected to extend beyond 2 midnights. [facility] Medical History Wears glasses Post-menopausal Alcohol use Thyroid disease Difficulty swallowing Gastric reflux Former smoker Hoarseness History of echocardiogram Brain TIA Laryngeal cancer HTN (hypertension) COPD (chronic obstructive pulmonary disease) Home Medications ?Medication ?Instructions ?Recorded ?Last Taken ?Type levothyroxine 75 mcg tablet 50 mcg PO MOTUWETHFR thyroid 11/30/21 01/20/24 History omeprazole 40 mg capsule,delayed 40 mg PO DAILY gerd 11/30/21 Unknown History release aspirin 81 mg chewable tablet 81 mg PO BREAKFAST blood thinner 12/01/21 01/13/24 Rx #30 tabs cholecalciferol (vitamin D3) 125 125 mcg PO DAILY supplement 12/17/23 Unknown History mcg (5,000 unit) capsule lisinopril 10 mg tablet 10 mg PO DAILY bp 12/17/23 01/20/24 History levothyroxine 50 mcg tablet 100 mcg PO SUSA thyroid 01/14/24 Unknown History Allergy/AdvReac Type Severity Reaction Status Date / Time No Known Allergies Allergy Verified 07/17/24 16:08 Family History Sister Cancer ovarian Other CVA (cerebral vascular accident) Surgical History Hx of tracheostomy Hx of esophagogastroduodenoscopy Hx of colonoscopy History of surgery Laryngeal cancer Social History Smoking Status: Former smoker alcohol intake: current alcohol intake frequency: a few times a month ROS ROS Narrative Review of Systems: Constitutional: Patient denies fever or chills. Eyes: Patient denies changes in vision or discharge from eyes. ENT: Patient denies runny nose, sore throat or ear pain with chronic tracheostomy stoma in place. Resp: Patient denies shortness of breath or cough. CV: Patient denies chest pain, palpitations or heart racing. GI: Patient admits to decreased appetite but she denies abdominal pain, nausea, vomiting, diarrhea or constipation. : Patient denies dysuria or hematuria. MSK: Patient admits to generalized weakness and myalgias but she denies arthralgias. Skin: Patient admits to the recent abrupt development of severe jaundice. She denies rash or abscess. Psych: Patient denies symptoms of uncontrolled depression or anxiety. Neuro: Patient admits to generalized weakness but she denies headache, paresthesias or focal neurologic deficits. Allergy: Patient denies lip swelling, tongue swelling or urticaria. Hematology: Patient denies easy bleeding or easy bruisability. Endocrinology: Patient denies polyuria, polydipsia or polyphagia. 14 point review of systems otherwise negative other than positives noted above in HPI. Vital Signs Vital Signs Vital Signs: 07/17/24 16:05 07/17/24 16:08 07/17/24 16:24 Temperature 98.7 F 98.7 F Temperature Source Oral Oral Pulse Rate 113 H 101 H Respiratory Rate 18 21 H Respiratory Effort Normal Respiratory Pattern Normal Blood Pressure 129/105 H 162/107 H Blood Pressure Mean 113 125 Pulse Ox 99 100 Oxygen Delivery Method Room Air Room Air 07/17/24 17:08 07/17/24 18:00 07/17/24 19:09 Temperature 98.5 F 98.5 F 98.5 F Temperature Source Oral Oral Pulse Rate 106 H 94 99 Respiratory Rate 24 H 19 H 23 H Respiratory Effort Respiratory Pattern Blood Pressure 167/110 H 165/100 H 160/105 H Blood Pressure Mean 129 121 123 Pulse Ox 96 100 99 Oxygen Delivery Method Room Air Room Air Weight Weight: 113 lb 8 oz Body Mass Index (BMI) 18.8 Results Lab / Micro Data 07/17/24 16:39 07/17/24 16:39 Labs: Laboratory Results - last 24 hr 07/17/24 16:39: WBC 9.1, RBC 4.02 L, Hgb 10.1 L, Hct 32.2 L, MCV 80.1 L, MCH 25.1 L, MCHC 31.4 L, RDW Std Deviation 55.0 H, RDW Coeff of Cecelia 18.9 H, Plt Count 370, MPV 9.1, Immature Gran % (Auto) 0.500, Neut % (Auto) 83.1 H, Lymph % (Auto) 7.7 L, Morrow % (Auto) 7.4, Eos % (Auto) 0.8, Baso % (Auto) 0.5, Absolute Neuts (auto) 7.6, Absolute Lymphs (auto) 0.70 L, Nucleated RBC % 0, PT 12.5, INR 0.9, Sodium 128 L, Potassium 4.1, Chloride 93 L, Carbon Dioxide 28.0, Anion Gap 6, BUN 9, Creatinine 0.99, Estim Creat Clear Calc 44.82, Est GFR (MDRD) Af Amer 72, Est GFR (MDRD) Non-Af 60, BUN/Creatinine Ratio 9.1 L, Glucose 115 H, Lactic Acid 1.3, Calcium 9.9, Total Bilirubin 8.10 H, Direct Bilirubin 6.71 H, AST 222 H, ALT 311 H, Alkaline Phosphatase 687 H, Total Protein 7.8, Albumin 3.2, G lobulin 4.6 H, Lipase 3235 H 07/17/24 18:28: Acetaminophen < 2.0 L Imaging Radiology Impression Gallbladder Ultrasound 07/17/24 16:56 IMPRESSION: Pancreatic head mass. Sludge or mass in the distal common bile duct. Significant biliary dilatation. Electronically Signed: Agustín Rodríguez DO at 19:34 EST , Abdomen/Pelvis CT 07/17/24 16:57 IMPRESSION: Up to 6 mm nodular densities in the visualized right lung base. Significant biliary dilatation. Moderately distended gallbladder. Ductal dilatation in the pancreas. There is a pancreatic head mass compatible with malignancy. Distal esophageal dilatation. Left retroperitoneal adenopathy. Electronically Signed: Agustín Rodríguez DO at 19:25 EST , ADDENDUM: 07/17/24 194 IMPRESSION: undefined Assessment & Plan Assessment/Plan (1) Mass of head of pancreas: (2) Choledocholithiasis with obstruction: QUALIFIERS: Cholecystitis presence: without cholecystitis Q ualified Code(s): K80.51 - Calculus of bile duct without cholangitis or cholecystitis with obstruction (3) Jaundice: (4) Transaminitis: (5) Acute pancreatitis: QUALIFIERS: Acute pancreatitis complication: no infection or necrosis Pancreatitis type: biliary Qualified Code(s): K85.10 - Biliary acute pancreatitis without necrosis or infection (6) Hyponatremia: (7) History of laryngeal cancer: (8) COPD (chronic obstructive pulmonary disease): QUALIFIERS: COPD type: emphysema Emphysema type: centrilobular Q ualified Code(s): J43.2 - Centrilobular emphysema PLAN: Plan 1. CT this admission positive for evidence of ~4.2 cm x ~3.4 cm x ~3.2 cm Pancreatic Head Mass complicated by suspected Choledocholithiasis with questionable intraluminal density in CBD consistent with sludge or mass with corresponding laboratory evidence of Severe Hyperbilirubinemia of 8.1 mg/dL and direct bilirubin of 6.71 mg/dL present on admission along with evidence of Transaminitis with AST 222 U/L, ALT 311 U/L and Alkaline Phosphatase of 687 U/L due to suspected newly diagnosed Pancreatic Cancer - Admit to general medical floor. Keep strict NPO. Start Protonix 40 mg IV daily. Check CA 19-9 to confirm suspicion. Give Zofran IV prn nausea and vomiting. Give Phenergan IM prn breakthrough nausea and vomiting. Give IV morphine prn for severe (level 6- 10/10) pain. Patient was informed about pancreatic mass is likely a malignancy with relatively poor options for treatment and is chronically ill patient. We will consult oncology see patient on rounds in the a.m. for further recommendations with help appreciated in advance. Finally, we will consult civil engineering drafter on-call to see this patient on-rounds in the AM for ERCP with anticipated stent placement with help appreciated in advance. 2. Elevated serum Lipase of 3,235 U/L present on admission indicative of Acute Pancreatitis likely due to CBD stone or sludge compounding #1 - Keep strict NPO. Serialize lipase. 3. Mild Hyponatremia of 128 mmol/L present on admission adding to the medical complexity of #1 & #2 - Give NS IVF and recheck CMP in AM to confirm improvement. 4. History of Laryngeal Cancer (2016); with subsequent tracheostomy and stoma; s/p chemotherapy and radiation - Noted. 5. History of tobacco abuse; with subsequent COPD and chronic cough - Stable with no evidence of acute flare at this time. Continue prn nebulizers. 6. History of esophageal stenosis with chronic dysphagia; s/p EGD with dilatation - Noted. 7. Essential hypertension; on lisinopril - Hold lisinopril and give IV Hydralazine prn for systolic blood pressure > 160 mmHg. 8. Hypothyroidism; on levothyroxine - Give levothyroxine IV while patient is NPO. 9. History of benign liver mass; s/p excision (2015) - Noted. 10. History of TIA (2021) - Noted. 11. GERD; on omeprazole - Continue PPI IV. 12. OA - Stable. 13. DVT prophylaxis - SCD's only with impending ERCP and stent placement in the AM. Total time: Approximately (but not less than) 75 minutes. Charges/Coding Visit Charges Inpatient E&M: 46645 Init Hosp L3
[2024-07-17] MEDS: Pantoprazole Sodium 40 MG in 0.9% Normal Saline (100mL MB+) 100 ML 330 MG IV (21:27)
[2024-07-17] MEDS: 0.9% Normal Saline (1000mL) 1,000 ML 125 ML IV (21:27)
[2024-07-17] MEDS: Morphine 2 MG/ML Syringe IV (23:04)
[2024-07-18 04:06] VITALS: BP 131/81; PULSE 91; RESP 18; TEMP 36.7; O2SAT 95
[2024-07-18] MEDS: Ondansetron 4 MG/2 ML Vial IV (04:15)
[2024-07-18] MEDS: 0.9% Normal Saline (1000mL) 1,000 ML 125 ML IV (04:15)
[2024-07-18 06:00] VITALS: BMI 18.0
--- NOTE | 2024-07-18 08:09 | PN.HOSP_ITS ---
Reason for Visit Reason for Visit: Diagnoses Hypo-osmolality and hyponatremia (07/17/24) Centrilobular emphysema (07/17/24) Calculus of bile duct without cholangitis or cholecystitis with obstruction (07/17/24) Biliary acute pancreatitis without necrosis or infection (07/17/24) Other specified diseases of pancreas (07/17/24) Unspecified jaundice (07/17/24) Elevation of levels of liver transaminase levels (07/17/24) Personal history of malignant neoplasm of larynx (07/17/24) Objective Data Objective Data Vital Signs: Vital Signs Temp Pulse Resp BP Pulse Ox O2 Del Method 98.1 F 91 18 131/81 H 95 Room Air 07/18/24 04:06 07/18/24 04:06 07/18/24 04:06 07/18/24 04:06 07/18/24 04:06 07/18/24 04:06 Oxygen Delivery Method Room Air Weight: 105 lb 9.623 oz Body Mass Index (BMI) 18.0 Intake & Output: Intake and Output for Last 24 Hours 07/16/24 07/17/24 07/18/24 23:59 23:59 23:59 Intake Total 110 / 110 850 / 850 Output Total 400 / 400 Balance 110 / 110 450 / 450 Lab / Micro Data 07/18/24 07:20 07/18/24 07:20 Labs: Laboratory Results - last 24 hr 07/17/24 16:39: WBC 9.1, RBC 4.02 L, Hgb 10.1 L, Hct 32.2 L, MCV 80.1 L, MCH 25.1 L, MCHC 31.4 L, RDW Std Deviation 55.0 H, RDW Coeff of Cecelia 18.9 H, Plt Count 370, MPV 9.1, Immature Gran % (Auto) 0.500, Neut % (Auto) 83.1 H, Lymph % (Auto) 7.7 L, [place] % (Auto) 7.4, Eos % (Auto) 0.8, Baso % (Auto) 0.5, Absolute Neuts (auto) 7.6, Absolute Lymphs (auto) 0.70 L, Nucleated RBC % 0, PT 12.5, INR 0.9, Sodium 128 L, Potassium 4.1, Chloride 93 L, Carbon Dioxide 28.0, Anion Gap 6, BUN 9, Creatinine 0.99, Estim Creat Clear Calc 44.82, Est GFR (MDRD) Af Amer 72, Est GFR (MDRD) Non-Af 60, BUN/Creatinine Ratio 9.1 L, Glucose 115 H, Lactic Acid 1.3, Calcium 9.9, Total Bilirubin 8.10 H, Direct Bilirubin 6.71 H, AST 222 H, A LT 311 H, Alkaline Phosphatase 687 H, Total Protein 7.8, Albumin 3.2, Globulin 4.6 H, Lipase 3235 H 07/17/24 18:28: Acetaminophen < 2.0 L Radiography Diagnostic Testing: Radiology Impression Gallbladder Ultrasound 07/17/24 16:56 IMPRESSION: Pancreatic head mass. Sludge or mass in the distal common bile duct. Significant biliary dilatation. Electronically Signed: Agustín Rodríguez DO at 19:34 EST , Abdomen/Pelvis CT 07/17/24 16:57 IMPRESSION: Up to 6 mm nodular densities in the visualized right lung base. Significant biliary dilatation. Moderately distended gallbladder. Ductal dilatation in the pancreas. There is a pancreatic head mass compatible with malignancy. Distal esophageal dilatation. Left retroperitoneal adenopathy. Electronically Signed: Agustín Rodríguez DO at 19:25 EST , ADDENDUM: 07/17/241941 IMPRESSION: undefined Physical Exam Narrative Seen and examined. Patient denies abdominal pain or upper back pain. Denies prior history of pancreatic disease or disorder or hepatobiliary disease. Complain of loss of appetite, fatigue and generalized weakness. She was admitted with jaundice. History of COPD status post total laryngectomy. Quit smoking in 2014. History of COPD Physical exam General: Alert, Oriented x3, Cooperative HEENT: Icterus present. Atraumatic, PERRLA, EOMI, Normocephalic Oral: No Gingival or Mucosal Lesions/ Ulcerations Neck: Tracheostomy with speaking valve. Status post total laryngectomy Chest wall/Lungs: Air entry diminished in bilateral lung bases. No crepitation/rhonchi Cardiovascular: Regular rate, Regular Rhythm, Normal S1, Normal S2, No M/G/R Abdomen: Bowel Sounds Present, Soft, Non Tender, Non-Distended. No hepatosplenomegaly. Scaphoid abdomen : No dysuria. No renal angle tenderness. No suprapubic tenderness. Extremities: No edema, Capillary Refill Less than 3 Seconds Skin: Yellow skin/jaundice Musculoskeletal: No Tenderness to Palpation of Joints or Extremities. ROM full. Neurological: Cranial nerves II-XII grossly intact, DTR 2+/4. No acute focal neurological deficit. Psych/Mental Status: Flat affect. Assessment & Plan Assessment/Plan (1) Mass of head of pancreas: (2) Choledocholithiasis with obstruction: QUALIFIERS: Cholecystitis presence: without cholecystitis Q ualified Code(s): K80.51 - Calculus of bile duct without cholangitis or cholecystitis with obstruction (3) Jaundice: (4) Transaminitis: (5) Acute pancreatitis: QUALIFIERS: Acute pancreatitis complication: no infection or necrosis Pancreatitis type: biliary Qualified Code(s): K85.10 - Biliary acute pancreatitis without necrosis or infection (6) Hyponatremia: (7) History of laryngeal cancer: (8) COPD (chronic obstructive pulmonary disease): QUALIFIERS: COPD type: emphysema Emphysema type: centrilobular Q ualified Code(s): J43.2 - Centrilobular emphysema PLAN: Plan 68-year-old female was admitted for generalized weakness, decreased appetite sent to ER from urgent care Metavir score she went for green phlegm and drainage from tracheostomy and was noticed jaundiced. As per patient, she noticed jaundice less than a week ago. 1. Pancreatic head mass with CBD obstruction resulting into jaundice: Patient is being admitted on [facility] floor. CT abdomen and ultrasound individually reviewed. CT abdomen shows pancreatic head mass 4.2 x 3.4 x 3.2 cm with significant biliary dilatation and moderately distended GB. Ductal dilatation in the pancreas. Distal esophageal dilatation and left retroperitoneal adenopathy. GB ultrasound shows sludge or mass in distal CBD. Significant biliary dilatation. Discussed with the GI. Plan for ERCP on Saturday. 2. Elevated lipase probably due to elevated pancreatic mass suspected pancreatic cancer/CBD obstruction: Patient does not have abdominal pain and does not reported pancreatic infiltrate so I am doubtful whether patient has acute pancreatitis. IV fluid normal saline +20 mEq KCl at 125 mL/h 3. Mild Hyponatremia of 128 mmol/L present on admission :-Normal 4. History of Laryngeal Cancer (2015); with subsequent tracheostomy and stoma; s/p chemotherapy and radiation - Noted. 5. History of tobacco abuse; with subsequent COPD and chronic cough - Stable with no evidence of acute flare at this time. Continue prn nebulizers. 6. History of esophageal stenosis with chronic dysphagia; s/p EGD with dilatation - Noted. 7. Essential hypertension; on lisinopril - Hold lisinopril and give IV Hydralazine prn for systolic blood pressure > 160 mmHg. 8. Hypothyroidism; on levothyroxine - Give levothyroxine IV while patient is NPO. 9. History of benign liver mass; s/p excision (2015) - Noted. 10. History of TIA (2021) - Noted. 11. GERD; on omeprazole - Continue PPI IV. 12. OA - Stable. 13. DVT prophylaxis - SCD's only with impending ERCP and stent placement in the AM. Charges/Coding Visit Charges Inpatient E&M: 50145 Subs Hosp L2
[2024-07-18 08:36] LABS: Absolute Lymphocyte Count 0.67 X10^3/uL (0.83-4.51); Absolute Neutrophil Count 7.4 X10^3/uL (2.0-7.7); Basophil# 0.04 X10^3/uL; Basophil% 0.4 % (0-1); Eosinophil# 0.04 X10^3/uL; Eosinophils% 0.4 % (0-5); Hematocrit 27.8 % (37-47); Hemoglobin 8.7 g/dL (12.0-15.0); Lymphocyte # 0.67 X10^3/ul (0.83-4.51); Lymphocyte % 7.5 % (19-41); Mean Corp Hgb Conc 31.3 g/dL (32-36); Mean Corpuscular Hgb 25.5 pg (27.0-32.0); Mean Corpuscular Volume 81.5 fL (81-99); Mean Platelet Vol. 9.3 fl (6.2-12.0); Monocyte# 0.67 X10^3/uL; Monocyte% 7.5 % (0-10); NRBC Flagged by Analyzer 0 % (0-5); Neutrophil # 7.44 X10^3/uL (2.7-7.7); Neutrophil % 83.5 % (47-70); Platelet Count 324 K/mm3 (150-450); RBC Distribution Width CV 19.6 % (11.6-14.6); RBC Distribution Width SD 57.2 fl (35.1-43.9); Red Blood Count 3.41 M/mm3 (4.2-5.4); White Blood Count 8.9 K/mm3 (4.4-11.0)
[2024-07-18 08:54] VITALS: BP 155/101; PULSE 82; RESP 16; TEMP 36.7; O2SAT 99
[2024-07-18 09:19] LABS: ALB/GLOB Ratio 0.7 RATIO (0.9-2.4); AST(SGOT) 173 U/L (15-37); Alanine Aminotransfer ALT/SGPT 249 U/L (13-56); Albumin, Serum 2.7 g/dL (3.2-5.0); Alkaline Phosphatase 603 U/L (45-117); Anion Gap 8 (5-15); BUN 8 mg/dL (7-18); BUN/Creat Ratio 8.8 RATIO (10-20); Calcium,Total 9.3 mg/dL (8.5-10.1); Chloride 98 mmol/L (98-107); Creatinine, Serum 0.91 mg/dL (0.55-1.02); EST Glomerular Filtration Rate 66 mL/min (>60); Est Glom Filt Rate - Afr Amer 79 mL/min (>60); Estimated Creatinine Clearance 45.36 ml/min; Glucose 84 mg/dL (74-106); Lipase 1071 U/L (13-75); Magnesium 2.1 mg/dL (1.6-2.6); Protein, Total 6.7 g/dL (6.4-8.2); Sodium Level 132 mmol/L (136-145)
[2024-07-18 09:21] LABS: Phosphorus 3.5 mg/dL (2.5-4.9)
[2024-07-18] MEDS: Pantoprazole Sodium 40 MG in 0.9% Normal Saline (100mL MB+) 100 ML 330 MG IV (12:48)
[2024-07-18] MEDS: Morphine 2 MG/ML Syringe IV (13:49)
[2024-07-18] MEDS: 0.9% Saline Lock 10 ML Syringe IV (13:50)
[2024-07-18] MEDS: KCL 20MEQ in 0.9% NS 20 MEQ/1,000 ML IV.SOLN. 125 MEQ IV (17:34)
[2024-07-18] MEDS: Lisinopril 10 MG Tablet PO (17:35)
--- NOTE | 2024-07-18 19:25 | CASEMGMT ---
RN?CM?DIRECTOR OF DISTANCE LEARNING?CM?to room to meet with patient for initial transition planning/care coordination?assessment.?RN?CM?introduced self and role at [facility].? Pt voices understanding and consents to?assessment?at this time.? Pt resting in bed in no distress at this time.? Pt is A/O at this time and answers all questions appropriately.?? Care providers, pharmacy, and demographics verified/updated at this time. PCP: RAFY, Ashanti Lavon Specialists: Dr Maciel, ENT specialist @ [facility]. Pt also sees voice prosthetic specialist there. Preferred Pharmacy: [facility] in [place] Insurance: [facility] A/B Prescription Benefit:?Yes LNOK: Rd Living Arrangements: Lives w/. Independent w/ADL's, IADL's, and manages her own medications and appts. and pt share home mgnt tasks. Transportation:?Pt states drives self and states no transportation concerns at this time.? also drives. DME: Pt has a trach stoma and uses device on trach to communicate.?Pt gets trach stoma supplies from [employer] via mail-order, states has sufficient amt. Denies using other DME and denies needs. ? HHC/SNF: No hx of SNF. Has had [facility] HHC in the past. Denies need for HHC and no needs identified. Pt wishes to return home and states has no concerns with going home at time of discharge. PLAN:??Home Antony BSN?RN?CM
[2024-07-18 21:47] VITALS: BP 152/96; PULSE 92; RESP 18; TEMP 36.6; O2SAT 99
[2024-07-19] MEDS: Ondansetron 4 MG/2 ML Vial IV (01:13)
[2024-07-19] MEDS: KCL 20MEQ in 0.9% NS 20 MEQ/1,000 ML IV.SOLN. 125 MEQ IV (01:13)
[2024-07-19 04:27] VITALS: BP 153/95; PULSE 84; RESP 18; TEMP 36.6; O2SAT 100
[2024-07-19] MEDS: Levothyroxine 100 MCG Tablet PO (04:29)
[2024-07-19 05:10] VITALS: BMI 17.9
[2024-07-19 05:11] VITALS: BMI 18.0
[2024-07-19 06:42] LABS: Phosphorus 2.5 mg/dL (2.5-4.9)
[2024-07-19 06:45] LABS: Magnesium 1.8 mg/dL (1.6-2.6)
[2024-07-19] MEDS: Pantoprazole Sodium 40 MG Tablet PO (09:03)
[2024-07-19] MEDS: Aspirin 81 MG TAB.CHEW PO (09:03)
[2024-07-19] MEDS: Cholecalciferol (Vit D3) 125 MCG CAPSULE (5,000 UNITS) PO (09:03)
[2024-07-19] MEDS: Lisinopril 10 MG Tablet PO ×2 (09:04→21:27)
[2024-07-19] MEDS: Morphine 2 MG/ML Syringe IV ×2 (09:04→21:28)
[2024-07-19] MEDS: 0.9% Saline Lock 10 ML Syringe IV ×2 (09:04→21:28)
[2024-07-19 09:54] VITALS: BP 154/96; PULSE 66; RESP 16; TEMP 36.7; O2SAT 97
--- NOTE | 2024-07-19 11:40 | DCINST_ITS ---
Discharge Instructions Follow Up Care Test Results: Test results from this visit will be discussed in further detail at your follow- up appointment, if applicable. Discharge Plan Admission Admit Date/Time: 07/17/24 20:39 Attending Provider: Sean Zavala Primary Care Provider: Ashanti Lucio Consulting Providers: Jose Ramon Moctezuma; Jose Ramon Rogers; Dwaine Garibay; Rock Lomax; Juan Pablo Jaffe; Sami Savage; Chito Burr; Behzad Hill; Agus Carter; Mariah Sam BUFFET WAITER/WAITRESS Discharge Orders/Prescriptions Prescriptions: No Action lisinopril 10 mg tablet 10 mg PO DAILY cholecalciferol (vitamin D3) 125 mcg (5,000 unit) capsule 125 mcg PO DAILY omeprazole 40 mg capsule,delayed release(DR/EC) 40 mg PO DAILY Patient Comments: TAKE 1 CAPSULE BY MOUTH ONCE DAILY levothyroxine 75 mcg tablet 50 mcg PO MOTUWETHFR aspirin 81 mg Tablet,Chewable 81 mg PO BREAKFAST Qty: 30 11RF levothyroxine 50 mcg tablet 100 mcg PO SUSA Referrals / Follow Up: Ashanti Lucio, PA-C [Primary Care Provider] - Disposition Discharge Orders: Discharge Patient (Routine); Ordered 07/19/24 Ordered By: Dr. Sean Zavala
[2024-07-19 13:29] LABS: CPK Total, Creatine Kinase 26 U/L (26-192)
[2024-07-19 13:33] LABS: Absolute Lymphocyte Count 0.49 X10^3/uL (0.83-4.51); Basophil# 0.05 X10^3/uL; Basophil% 0.5 % (0-1); Eosinophil# 0.05 X10^3/uL; Eosinophils% 0.5 % (0-5); Hematocrit 29.4 % (37-47); Hemoglobin 8.9 g/dL (12.0-15.0); Lymphocyte # 0.49 X10^3/ul (0.83-4.51); Lymphocyte % 5.3 % (19-41); Mean Corp Hgb Conc 30.3 g/dL (32-36); Mean Corpuscular Hgb 25.3 pg (27.0-32.0); Mean Corpuscular Volume 83.5 fL (81-99); Mean Platelet Vol. 9.3 fl (6.2-12.0); Monocyte# 0.65 X10^3/uL; NRBC Flagged by Analyzer 0 % (0-5); Neutrophil # 7.96 X10^3/uL (2.7-7.7); Neutrophil % 85.7 % (47-70); POSITIVE DIFFERENTIAL YES; POSITIVE MORPHOLOGY YES; Platelet Count 306 K/mm3 (150-450); RBC Distribution Width CV 20.2 % (11.6-14.6); RBC Distribution Width SD 60.6 fl (35.1-43.9); Red Blood Count 3.52 M/mm3 (4.2-5.4); White Blood Count 9.3 K/mm3 (4.4-11.0)
[2024-07-19 13:36] LABS: AST(SGOT) 156 U/L (15-37); Alanine Aminotransfer ALT/SGPT 212 U/L (13-56); Albumin, Serum 2.7 g/dL (3.2-5.0); Alkaline Phosphatase 610 U/L (45-117); Anion Gap 9 (5-15); BUN 8 mg/dL (7-18); BUN/Creat Ratio 9.7 RATIO (10-20); Bilirubin, Direct 7.44 mg/dL (0.00-0.30); Calcium,Total 8.7 mg/dL (8.5-10.1); Chloride 96 mmol/L (98-107); Creatinine, Serum 0.83 mg/dL (0.55-1.02); EST Glomerular Filtration Rate 73 mL/min (>60); Est Glom Filt Rate - Afr Amer 89 mL/min (>60); Estimated Creatinine Clearance 49.74 ml/min; Globulin 3.9 g/dL (2.2-4.2); Glucose 95 mg/dL (74-106); LDH 228 U/L (84-246); Protein, Total 6.6 g/dL (6.4-8.2); Sodium Level 129 mmol/L (136-145)
[2024-07-19 13:44] LABS: Differential Indicated SCAN CRITERIA MET
--- NOTE | 2024-07-19 14:06 | ONC.CONSULT ---
Assessment & Plan Assessment/Plan (1) Mass of head of pancreas: Status: Acute Code(s): K86.89 - Other specified diseases of pancreas Plan: Mass of the head of pancreas with retroperitoneal node and peritoneal mass suggestive of metastatic malignancy. Discussed findings with Pt and , need for biopsy before discussing therapy. Pt wants to go to for further management. (2) Obstructive jaundice: Status: Acute Code(s): K83.1 - Obstruction of bile duct Plan: To proceed with GI consult and ERCP. (3) History of laryngeal cancer: Status: Acute Code(s): Z85.21 - Personal history of malignant neoplasm of larynx Plan: To do observation. HPI Consult Data Date of Service:: 07/19/24 PCP / Referring Provider: Ashanti Lucio PA-C Attending: Dr. Sean Zavala MD Chief Complaint Chief Complaint: Asked to see Pt for Obstructive Jaundice. History of Present Illness History of Present Illness: 68-year-old woman presented with obstructive jaundice on 07/17/2024. CT scan of the abdomen on 07/17/2024 showed biliary dilatation in the liver, moderate distention of gallbladder with dilation of extrahepatic biliary system, pancreatic head mass measuring 4.2 cm, retroperitoneal adenopathy and abdominal mass, distal esophageal dilation. She is now admitted for workup. She was diagnosed with laryngeal cancer in July 2015. She had total laryngectomy with voice prosthesis at followed by adjuvant chemoradiation therapy in [place]. 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: No Living Will: No [facility] Medical History Wears glasses Post-menopausal Alcohol use Thyroid disease Difficulty swallowing Gastric reflux Former smoker Hoarseness History of echocardiogram Brain TIA Laryngeal cancer HTN (hypertension) COPD (chronic obstructive pulmonary disease) Home Medications ?Medication ?Instructions ?Recorded ?Last Taken ?Type levothyroxine 75 mcg tablet 50 mcg PO MOTUWETHFR thyroid 11/30/21 01/20/24 History omeprazole 40 mg capsule,delayed 40 mg PO DAILY gerd 11/30/21 Unknown History release aspirin 81 mg chewable tablet 81 mg PO BREAKFAST blood thinner 12/01/21 01/13/24 Rx #30 tabs cholecalciferol (vitamin D3) 125 125 mcg PO DAILY supplement 12/17/23 Unknown History mcg (5,000 unit) capsule lisinopril 10 mg tablet 10 mg PO DAILY bp 12/17/23 01/20/24 History levothyroxine 50 mcg tablet 100 mcg PO SUSA thyroid 01/14/24 Unknown History Allergy/AdvReac Type Severity Reaction Status Date / Time No Known Allergies Allergy Verified 07/17/24 16:08 Family History Sister Cancer ovarian Other CVA (cerebral vascular accident) Surgical History Hx of tracheostomy Hx of esophagogastroduodenoscopy Hx of colonoscopy History of surgery Laryngeal cancer Social History Smoking Status: Former smoker alcohol intake: current alcohol intake frequency: a few times a month Physical Exam Const alert, oriented x3 and no apparent distress HEENT normocephalic Eyes Eyes Narrative: +jaundice sclera Neck no lymphadenopathy Neck Narrative: +voice prosthesis. Lymph Lymphatic: no lymphadenopathy noted Resp normal respiratory effort Cardio regular rate, regular rhythm, S1 normal heart sound and S2 normal heart sound GI soft to palpation Extremity no clubbing, cyanosis or edema Skin Skin Narrative: +jaundice Neuro CN's II-XII intact bilaterally and moves all extremities Psych mental status grossly normal Vital Signs Temperature 98.1 F 07/19/24 09:54 Temperature Source Oral 07/19/24 09:54 Pulse Rate 66 07/19/24 09:54 Pulse Strength Normal (2+) 07/19/24 09:54 Respiratory Rate 16 07/19/24 09:54 Respiratory Effort Normal, Non-Labored 07/19/24 09:54 Respiratory Depth Normal 07/19/24 09:54 Respiratory Pattern Normal 07/19/24 09:54 Blood Pressure 154/96 H 07/19/24 09:54 Blood Pressure Mean 115 07/19/24 09:54 Blood Pressure Source Monitor 07/19/24 09:54 Blood Pressure Position Semi-Fowlers 07/19/24 09:54 Blood Pressure Location Right Arm 07/19/24 09:54 Pulse Ox 97 07/19/24 09:54 Oxygen Delivery Method Room Air 07/19/24 09:54 Laboratory Results - last 24 hr 07/19/24 04:46: WBC 9.3, RBC 3.52 L, Hgb 8.9 L, Hct 29.4 L, MCV 83.5, MCH 25.3 L, MCHC 30.3 L, RDW Std Deviation 60.6 H, RDW Coeff of Cecelia 20.2 H, Plt Count 306, MPV 9.3, Immature Gran % (Auto) 1.000 H, Neut % (Auto) 85.7 H, Lymph % (Auto) 5.3 L, [place] % (Auto) 7.0, Eos % (Auto) 0.5, Baso % (Auto) 0.5, Absolute Neuts (auto) 8.0 H, Absolute Lymphs (auto) 0.49 L, Nucleated RBC % 0, Sodium 129 L, Potassium 4.0, Chloride 96 L, Carbon Dioxide 23.0, Anion Gap 9, BUN 8, Creatinine 0.83, Estim Creat Clear Calc 49.74, Est GFR (MDRD) Af Amer 89, Est GFR (MDRD) Non-Af 73, BUN/Creatinine Ratio 9.7 L, Glucose 95, Calcium 8.7, Phosphorus 2.5, Magnesium 1.8, Total Bilirubin 9.10 H, Direct Bilirubin 7.44 H, AST 156 H, ALT 212 H, Alkaline Phosphatase 610 H, Lactate Dehydrogenase 228, Total Creatine Kinase 26, C-React Prot Ext Range 38.70 H, Total Protein 6.6, Albumin 2.7 L, Globulin 3.9 Diagnostic Data Gallbladder Ultrasound 07/17/24 16:56 IMPRESSION: Pancreatic head mass. Sludge or mass in the distal common bile duct. Significant biliary dilatation. Electronically Signed: Agustín Rodríguez DO at 19:34 EST Reading Location ID and State: [facility] / [place] Tel [phone], Service support , Abdomen/Pelvis CT 07/17/24 16:57 IMPRESSION: Up to 6 mm nodular densities in the visualized right lung base. Significant biliary dilatation. Moderately distended gallbladder. Ductal dilatation in the pancreas. There is a pancreatic head mass compatible with malignancy. Distal esophageal dilatation. Left retroperitoneal adenopathy. Electronically Signed: Agustín Rodríguez DO at 19:25 EST , ADDENDUM: 07/17/241941 IMPRESSION: undefined
[2024-07-19 14:14] LABS: Differential Comment SCANNED; Platelet Estimate ADEQUATE (ADEQ)
[2024-07-19 14:15] LABS: Anisocytosis 2+; Hypochromasia 1+
[2024-07-19 16:33] VITALS: BP 160/96; PULSE 84; RESP 16; TEMP 37.1; O2SAT 99
--- NOTE | 2024-07-19 16:39 | EX.PCM.CON.G ---
HPI Consult Data Date of Consult: 07/19/24 HPI Narrative Reason for Consultation: Jaundice HPI Narrative: LYN LOPEZ, is a 68 F with a past medical history of history of laryngeal cancer (2016); with subsequent tracheostomy and stoma; s/p chemotherapy and radiation, history of esophageal stenosis with chronic dysphagia; s/p EGD with dilatation. She presented to [facility] ER complaining of decreased appetite, diffuse weakness and jaundice. Ms. Lopez reports her symptoms began approximately 1 week prior to admission with a gradual-onset of decreased appetite and generalized weakness followed by the abrupt onset of severe jaundice. She initially presented to urgent care due to green sputum emanating from her tracheal stoma with additional concerns about her jaundice. She admits to a chronic cough that is only slightly worse than normal. She denies associated fever, chills, nausea, vomiting, diarrhea, constipation, abdominal pain, chest pain or shortness of breath. In the ER she was noted to have CT this admission positive for evidence of ~4.2 cm x ~3.4 cm x ~3.2 cm Pancreatic Head Mass complicated by suspected Choledocholithiasis with questionable intraluminal density in CBD consistent with sludge or mass with corresponding laboratory evidence of Severe Hyperbilirubinemia of 8.1 mg/dL and direct bilirubin of 6.71 mg/dL present on admission along with evidence of Transaminitis with AST 222 U/L, ALT 311 U/L and Alkaline Phosphatase of 687 U/L due to suspected newly diagnosed Pancreatic Cancer compounded by elevated serum Lipase of 3,235 U/L present on admission indicative of Acute Pancreatitis likely due to CBD stone [facility] Medical History Wears glasses Post-menopausal Alcohol use Thyroid disease Difficulty swallowing Gastric reflux Former smoker Hoarseness History of echocardiogram Brain TIA Laryngeal cancer HTN (hypertension) COPD (chronic obstructive pulmonary disease) Home Medications ?Medication ?Instructions ?Recorded ?Last Taken ?Type levothyroxine 75 mcg tablet 50 mcg PO MOTUWETHFR thyroid 11/30/21 01/20/24 History omeprazole 40 mg capsule,delayed 40 mg PO DAILY gerd 11/30/21 Unknown History release aspirin 81 mg chewable tablet 81 mg PO BREAKFAST blood thinner 12/01/21 01/13/24 Rx #30 tabs cholecalciferol (vitamin D3) 125 125 mcg PO DAILY supplement 12/17/23 Unknown History mcg (5,000 unit) capsule lisinopril 10 mg tablet 10 mg PO DAILY bp 12/17/23 01/20/24 History levothyroxine 50 mcg tablet 100 mcg PO SUSA thyroid 01/14/24 Unknown History Allergy/AdvReac Type Severity Reaction Status Date / Time No Known Allergies Allergy Verified 07/17/24 16:08 Family History Sister Cancer ovarian Other CVA (cerebral vascular accident) Surgical History Hx of tracheostomy Hx of esophagogastroduodenoscopy Hx of colonoscopy History of surgery Laryngeal cancer Social History Smoking Status: Former smoker alcohol intake: current alcohol intake frequency: a few times a month ROS ROS Narrative Review of Systems: Constitutional: Patient denies fever or chills. Eyes: Patient denies changes in vision or discharge from eyes. ENT: Patient denies runny nose, sore throat or ear pain with chronic tracheostomy stoma in place. Resp: Patient denies shortness of breath or cough. CV: Patient denies chest pain, palpitations or heart racing. GI: Patient admits to decreased appetite but she denies abdominal pain, nausea, vomiting, diarrhea or constipation. : Patient denies dysuria or hematuria. MSK: Patient admits to generalized weakness and myalgias but she denies arthralgias. Skin: Patient admits to the recent abrupt development of severe jaundice. She denies rash or abscess. Psych: Patient denies symptoms of uncontrolled depression or anxiety. Neuro: Patient admits to generalized weakness but she denies headache, paresthesias or focal neurologic deficits. Allergy: Patient denies lip swelling, tongue swelling or urticaria. Hematology: Patient denies easy bleeding or easy bruisability. Endocrinology: Patient denies polyuria, polydipsia or polyphagia. 14 point review of systems otherwise negative other than positives noted above in HPI. Physical Exam Const alert, oriented x3 and no apparent distress HEENT normocephalic Eyes Eyes Narrative: +jaundice sclera Neck no lymphadenopathy Neck Narrative: +voice prosthesis. Lymph Lymphatic: no lymphadenopathy noted Resp normal respiratory effort Cardio regular rate, regular rhythm, S1 normal heart sound and S2 normal heart sound GI soft to palpation Extremity no clubbing, cyanosis or edema Skin Skin Narrative: +jaundice Neuro CN's II-XII intact bilaterally and moves all extremities Psych mental status grossly normal Lab / Micro Data 07/20/24 06:08 07/20/24 06:08 Labs: Laboratory Results - last 24 hr 07/17/24 20:49: CA 19-9 Antigen [id number] H 07/20/24 06:08: WBC 9.4, RBC 3.91 L, Hgb 9.8 L, Hct 31.4 L, MCV 80.3 L, MCH 25.1 L, MCHC 31.2 L, RDW Std Deviation 57.9 H, RDW Coeff of Cecelia 20.2 H, Plt Count 331, MPV 8.7, Immature Gran % (Auto) 1.200 H, Neut % (Auto) 84.8 H, Lymph % (Auto) 6.1 L, [place] % (Auto) 6.6, Eos % (Auto) 0.7, Baso % (Auto) 0.6, Absolute Neuts (auto) 8.0 H, Absolute Lymphs (auto) 0.57 L, Nucleated RBC % 0, Differential Comment , Sodium 128 L, Potassium 3.7, Chloride 91 L, Carbon Dioxide 25.0, Anion Gap 12, BUN 9, Creatinine 0.98, Estim Creat Clear Calc 42.12, Est GFR (MDRD) Af Amer 73, Est GFR (MDRD) Non-Af 60, BUN/Creatinine Ratio 9.2 L, Glucose 82, Calcium 10.1, Total Bilirubin 12.50 H, Direct Bilirubin 9.95 H, AST 169 H, ALT 214 H, Alkaline Phosphatase 781 H, Total Protein 7.4, Albumin 3.0 L, Globulin 4.4 H, Lipase 1056 H Assessment & Plan Assessment/Plan (1) Mass of head of pancreas: (2) Choledocholithiasis with obstruction: QUALIFIERS: Cholecystitis presence: without cholecystitis Qualified Code(s): K80.51 - Calculus of bile duct without cholangitis or cholecystitis with obstruction (3) Jaundice: (4) Transaminitis: (5) Acute pancreatitis: QUALIFIERS: Pancreatitis type: biliary Acute pancreatitis complication: no infection or necrosis Qualified Code(s): K85.10 - Biliary acute pancreatitis without necrosis or infection (6) Hyponatremia: (7) History of laryngeal cancer: (8) COPD (chronic obstructive pulmonary disease): QUALIFIERS: COPD type: emphysema Emphysema type: centrilobular Qualified Code(s): J43.2 - Centrilobular emphysema PLAN: Plan 68-year-old with past medical history of laryngeal cancer status post total laryngectomy with chemoradiation and subsequent esophageal stricture presents with jaundice and discovered to have severe hyperbilirubinemia and biochemical evidence of pancreatitis CT this admission positive for evidence of ~4.2 cm x ~3.4 cm x ~3.2 cm Pancreatic Head Mass complicated by suspected Choledocholithiasis with questionable intraluminal density in CBD consistent with sludge or mass with corresponding laboratory evidence of Severe Hyperbilirubinemia of 8.1 mg/dL and direct bilirubin of 6.71 mg/dL present on admission along with evidence of Transaminitis with AST 222 U/L, ALT 311 U/L and Alkaline Phosphatase of 687 U/L due to suspected newly diagnosed Pancreatic Cancer Elevated serum Lipase of 3,235 U/L present on admission indicative of Acute Pancreatitis likely due to CBD stone or sludge compounding . Recommend IV fluids at 150 cc an hour She will undergo therapeutic ERCP. She was explained alternatives, risk, benefits include not withstanding bleeding, infection, sepsis, perforation, need for charge and . She will have an ASA of 3. Charges/Coding Visit Charges Inpatient E&M: 27991 Init Hosp L3
--- NOTE | 2024-07-19 17:06 | PCM.PN.HOSP ---
Reason for Visit Reason for Visit: Diagnoses Hypo-osmolality and hyponatremia (07/17/24) Centrilobular emphysema (07/17/24) Calculus of bile duct without cholangitis or cholecystitis with obstruction (07/17/24) Obstruction of bile duct (07/17/24) Biliary acute pancreatitis without necrosis or infection (07/17/24) Other specified diseases of pancreas (07/17/24) Unspecified jaundice (07/17/24) Elevation of levels of liver transaminase levels (07/17/24) Personal history of malignant neoplasm of larynx (07/17/24) Objective Data Objective Data Vital Signs: Vital Signs Temp Pulse Resp BP Pulse Ox O2 Del Method 98.7 F 84 16 160/96 H 99 Room Air 07/19/24 16:33 07/19/24 16:33 07/19/24 16:33 07/19/24 16:33 07/19/24 16:33 07/19/24 16:33 Oxygen Delivery Method Room Air Weight: 105 lb 9.623 oz Body Mass Index (BMI) 18.0 Intake & Output: Intake and Output for Last 24 Hours 07/17/24 07/18/24 07/19/24 23:59 23:59 23:59 Intake Total 110 / 110 1960 / 2210 3522.25 / 3522.25 Output Total 400 / 400 1100 / 1100 Balance 110 / 110 1560 / 1810 2422.25 / 2422.25 Lab / Micro Data 07/19/24 04:46 07/19/24 04:46 Labs: Laboratory Results - last 24 hr 07/19/24 04:46: WBC 9.3, RBC 3.52 L, Hgb 8.9 L, Hct 29.4 L, MCV 83.5, MCH 25.3 L, MCHC 30.3 L, RDW Std Deviation 60.6 H, RDW Coeff of Cecelia 20.2 H, Plt Count 306, MPV 9.3, Immature Gran % (Auto) 1.000 H, Neut % (Auto) 85.7 H, Lymph % (Auto) 5.3 L, [place] % (Auto) 7.0, Eos % (Auto) 0.5, Baso % (Auto) 0.5, Absolute Neuts (auto) 8.0 H, Absolute Lymphs (auto) 0.49 L, Nucleated RBC % 0, Differential Comment SCANNED, Platelet Estimate ADEQUATE, Hypochromasia 1+, Anisocytosis 2+, Sodium 129 L, Potassium 4.0, Chloride 96 L, Carbon Dioxide 23.0, Anion Gap 9, BUN 8, Creatinine 0.83, Estim Creat Clear Calc 49.74, Est GFR (MDRD) Af Amer 89, Est GFR (MDRD) Non-Af 73, BUN/Creatinine Ratio 9.7 L, Glucose 95, Calcium 8.7, Phosphorus 2.5, Magnesium 1.8, Total Bilirubin 9.10 H, Direct Bilirubin 7.44 H, AST 156 H, ALT 212 H, Alkaline Phosphatase 610 H, Lactate Dehydrogenase 228, Total Creatine Kinase 26, C-React Prot Ext Range 38.70 H, Total Protein 6.6, Albumin 2.7 L, Globulin 3.9 Physical Exam Narrative Seen and examined. No acute change since yesterday. Blood pressure slightly elevated. Was seen by oncologist. Patient denies abdominal pain or upper back pain. Denies prior history of pancreatic disease or disorder or hepatobiliary disease. Complain of loss of appetite, fatigue and generalized weakness. She was admitted with jaundice. History of COPD status post total laryngectomy. Quit smoking in 2014. History of COPD Physical exam General: Alert, Oriented x3, Cooperative HEENT: Icterus present. Atraumatic, PERRLA, EOMI, Normocephalic Oral: No Gingival or Mucosal Lesions/ Ulcerations Neck: Tracheostomy with speaking valve. Status post total laryngectomy Chest wall/Lungs: Air entry diminished in bilateral lung bases. No crepitation/rhonchi Cardiovascular: Regular rate, Regular Rhythm, Normal S1, Normal S2, No M/G/R Abdomen: Bowel Sounds Present, Soft, Non Tender, Non-Distended. No hepatosplenomegaly. Scaphoid abdomen : No dysuria. No renal angle tenderness. No suprapubic tenderness. Extremities: No edema, Capillary Refill Less than 3 Seconds Skin: Yellow skin/jaundice Musculoskeletal: No Tenderness to Palpation of Joints or Extremities. ROM full. Neurological: Cranial nerves II-XII grossly intact, DTR 2+/4. No acute focal neurological deficit. Psych/Mental Status: Flat affect. Assessment & Plan Assessment/Plan (1) Mass of head of pancreas: (2) Choledocholithiasis with obstruction: QUALIFIERS: Cholecystitis presence: without cholecystitis Qualified Code(s): K80.51 - Calculus of bile duct without cholangitis or cholecystitis with obstruction (3) Jaundice: (4) Transaminitis: (5) Acute pancreatitis: QUALIFIERS: Pancreatitis type: biliary Acute pancreatitis complication: no infection or necrosis Qualified Code(s): K85.10 - Biliary acute pancreatitis without necrosis or infection (6) Hyponatremia: (7) History of laryngeal cancer: (8) COPD (chronic obstructive pulmonary disease): QUALIFIERS: COPD type: emphysema Emphysema type: centrilobular Qualified Code(s): J43.2 - Centrilobular emphysema PLAN: Plan 68-year-old female was admitted for generalized weakness, decreased appetite sent to ER from urgent care Metavir score she went for green phlegm and drainage from tracheostomy and was noticed jaundiced. As per patient, she noticed jaundice less than a week ago. 1. Pancreatic head mass with CBD obstruction resulting into jaundice: Patient is being admitted on [facility] floor. CT abdomen and ultrasound individually reviewed. CT abdomen shows pancreatic head mass 4.2 x 3.4 x 3.2 cm with significant biliary dilatation and moderately distended GB. Ductal dilatation in the pancreas. Distal esophageal dilatation and left retroperitoneal adenopathy. GB ultrasound shows sludge or mass in distal CBD. Significant biliary dilatation. Discussed with the GI. Plan for ERCP on Saturday. 07/19: Patient evaluated by oncologist Dr. Garibay. Mass of head and pancreas with retroperitoneal lymph nodes, concerning for metastatic malignancy. Patient will need biopsy before discussion of treatment and she wants to pursue treatment of cancer and [facility]. Plan for ERCP and possible CBD stenting and biopsy tomorrow AM. 2. Elevated lipase probably due to elevated pancreatic mass suspected pancreatic cancer/CBD obstruction: Patient does not have abdominal pain and does not reported pancreatic infiltrate so I am doubtful whether patient has acute pancreatitis. IV fluid normal saline +20 mEq KCl at 125 mL/h 3. Mild Hyponatremia of 128 mmol/L present on admission :-Normal 4. History of Laryngeal Cancer (2016); with subsequent tracheostomy and stoma; s/p chemotherapy and radiation - Noted. 5. History of tobacco abuse; with subsequent COPD and chronic cough - Stable with no evidence of acute flare at this time. Continue prn nebulizers. 6. History of esophageal stenosis with chronic dysphagia; s/p EGD with dilatation - Noted. 7. Essential hypertension; on lisinopril - Hold lisinopril and give IV Hydralazine prn for systolic blood pressure > 160 mmHg. 07/19 blood pressure elevated than baseline 260/96. Lisinopril dose increased to 10 mg twice daily 8. Hypothyroidism; on levothyroxine - Give levothyroxine IV while patient is NPO. 9. History of benign liver mass; s/p excision (2015) - Noted. 10. History of TIA (2021) - Noted. 11. GERD; on omeprazole - Continue PPI IV. 12. OA - Stable. 13. DVT prophylaxis - SCD's only with impending ERCP and stent placement in the AM. Charges/Coding Visit Charges Inpatient E&M: 14051 Subs Hosp L2
[2024-07-19 21:21] VITALS: BP 132/91; PULSE 86; RESP 14; TEMP 36.7; O2SAT 100
[2024-07-20] VITALS (13 sets, daily range): BP systolic 103–172; BP diastolic 76–109; PULSE 73–96; RESP 15–18; TEMP 36.3–36.7; O2SAT 96–100; BMI 18.0; BMI 19.4
[2024-07-20] MEDS: Levothyroxine 50 MCG Tablet PO (04:36)
[2024-07-20 06:28] LABS: Absolute Lymphocyte Count 0.57 X10^3/uL (0.83-4.51); Basophil# 0.06 X10^3/uL; Basophil% 0.6 % (0-1); Eosinophil# 0.07 X10^3/uL; Eosinophils% 0.7 % (0-5); Hematocrit 31.4 % (37-47); Hemoglobin 9.8 g/dL (12.0-15.0); Lymphocyte # 0.57 X10^3/ul (0.83-4.51); Lymphocyte % 6.1 % (19-41); Mean Corp Hgb Conc 31.2 g/dL (32-36); Mean Corpuscular Hgb 25.1 pg (27.0-32.0); Mean Corpuscular Volume 80.3 fL (81-99); Mean Platelet Vol. 8.7 fl (6.2-12.0); Monocyte# 0.62 X10^3/uL; Monocyte% 6.6 % (0-10); NRBC Flagged by Analyzer 0 % (0-5); Neutrophil # 7.99 X10^3/uL (2.7-7.7); Neutrophil % 84.8 % (47-70); POSITIVE DIFFERENTIAL YES; POSITIVE MORPHOLOGY YES; Platelet Count 331 K/mm3 (150-450); RBC Distribution Width CV 20.2 % (11.6-14.6); RBC Distribution Width SD 57.9 fl (35.1-43.9); Red Blood Count 3.91 M/mm3 (4.2-5.4); White Blood Count 9.4 K/mm3 (4.4-11.0)
[2024-07-20 06:55] LABS: Differential Indicated SCAN CRITERIA MET
[2024-07-20 07:17] LABS: AST(SGOT) 169 U/L (15-37); Alanine Aminotransfer ALT/SGPT 214 U/L (13-56); Alkaline Phosphatase 781 U/L (45-117); Anion Gap 12 (5-15); BUN 9 mg/dL (7-18); BUN/Creat Ratio 9.2 RATIO (10-20); Bilirubin, Direct 9.95 mg/dL (0.00-0.30); Calcium,Total 10.1 mg/dL (8.5-10.1); Chloride 91 mmol/L (98-107); Creatinine, Serum 0.98 mg/dL (0.55-1.02); EST Glomerular Filtration Rate 60 mL/min (>60); Est Glom Filt Rate - Afr Amer 73 mL/min (>60); Estimated Creatinine Clearance 42.12 ml/min; Globulin 4.4 g/dL (2.2-4.2); Glucose 82 mg/dL (74-106); Lipase 1056 U/L (13-75); Potassium 3.7 mmol/L (3.5-5.1); Protein, Total 7.4 g/dL (6.4-8.2); Sodium Level 128 mmol/L (136-145)
[2024-07-20] MEDS: Pantoprazole Sodium 40 MG Tablet PO (09:57)
--- NOTE | 2024-07-20 12:00 | NURSING ---
Family brought in phone numbers: Dr. Dunn: [phone] his nurse Nevaeh: [phone] states they are sending a referral to Jonathon Duvall who is an Oncologist. Family states that MD was asking for the above information. Will inform Dr. Zavala
--- NOTE | 2024-07-20 12:16 | NURSING ---
in to speak with pt and her daughter. pt states that her md is Dr. Maciel (daughter had wrong spelling) and they believe that the oncologist is Timbo Grier. Daughter states fax number to Dr. Maciel is [phone]
--- NOTE | 2024-07-20 13:00 | FLU_PTH ---
PATIENT: LYN LOPEZ LOC: [facility]3 U#:[id number] AGE/SX: 68/F ROOM: [facility] [place] RE07/17/[address]: Dr. Sean Zavala MD : [id number] BED: 1 DIS: 07/21/2024 SPEC #: [id number] RECD: 07/20/24 19:12 STATUS: BRAULIO REQ #: [id number] JAYE: 07/20/24 13:[address]: Marcelo Harden DEPT: CYTOLOGY RECD BY: Swehta Dior ENTERED: 07/21/24 09:24 SP TYPE: Fluid OTHR DR: DO Dr. Jose Ramon Mclean MD Dr. Joseph Prah, MD Dr. Joel Simmons, MD Dr. Mansour Isckarus, MD Dr. Prakash Chand, MD Dr. Robert Field, MD Dr. Ryan Jin, MD Dr. Roger Macklis, MD Dr. Steve Walston, DO Tyra Schlabach, NP-C Ashanti ReardanCHARLI Tissues: A - Pancreatic duct, NOS B - Pancreatic duct, NOS Procedures: Special Stain Group II Surgery Specimen Level IV Cytospin Fluid Cytology Other Comments: @ Ordering doctor for SSII edited from to @ by JANI at 07/21/24 0954 @ Ordering doctor for SUIV edited from to @ by JANI at 07/21/24 0954 @ Ordering doctor for CYSPIN edited from to @ by JANI at 07/21/24 0954 @ Ordering doctor for CYOTHER edited from to @ by JANI at 07/21/24 0954 @ Submitting doctor edited from to @ by JANI at 07/21/24 0954 HEADER OPERATION: Esophagogastroduodenoscopy with dilation PRE-OP DIAGNOSIS: Mass of head of pancreas, choledocholithiasis with obstruction, jaundice, transaminitis, acute pancreatitis, hyponatremia, history of laryngeal cancer, COPD TISSUE SUBMITTED: A- Pancreatic duct brushings brush head, B- Pancreatic duct stricture brushings DIAGNOSIS CYTOLOGY A. Pancreatic duct brushings brush head fluid (cytospins and cellblock): A few clusters of atypical cells noted. B. Pancreatic duct stricture brushings (smears): A few clusters of atypical cells noted. See comment. 07/23/2024 COMMENT If there is a high suspicion of malignancy, biopsy of the mass of head of the pancreas is suggested, if clinically indicated. Correlation with clinical, radiologic findings and appropriate follow up are necessary. CYTOLOGY STUDY Slides are reviewed. CYTOLOGY GROSS A. Received is 1 ml of light red fluid labeled with the patient's name and and designated per the requisition as Pancreatic duct brushings brush head. Submitted for cytology preparation including cell block. B. Received are 3 smears labeled with the patient's name and designated per the requisition as Pancreatic duct stricture brushings. Submitted for staining. Mr 07/21/2024 TC:5 CPT: 18243,20000,27644
[2024-07-20 13:06] LABS: Carbohydrate Ag 19-9 2261 11119 U/mL (0-35)
[2024-07-20] MEDS: 0.9% Normal Saline (1000mL) 1,000 ML 15 ML IV (15:18)
--- NOTE | 2024-07-20 15:33 | PRE.ANES_ITS ---
ASA Classification* ASA Classification ASA Classification: 3 Assessment & Plan Anesthesia* Anesthesia Assessment Anesthesia Assessment: Discussed sedation and/or anesthesia options, risks, benefits, and alternatives with patient/parents/legal guardian/POA. Questions invited. The patient/parents/legal guardian/POA seems to understand and agrees to proceed with anesthesia plan. Reviewed the physical assessment, medical history, allergy history and patient home medications list prior to surgery/procedure/anesthetic and documented any changes. Performed airway and anesthesia risk assessments. Anesthesia Type Anesthesia Type: General History Source History Obtained from:: Patient and Chart Anesthesia Focused Assessment* Temperature: 97.7 F Pulse Rate: 84 Blood Pressure: 136/89 Respiratory Rate: 15 Pulse Ox: 96 Oxygen Delivery Method: Room Air Airway Assessment Mouth opens: >3 cm Mallampati Score: III Teeth Condition: Intact Neck Range of motion (ROM): Full ROM Comment: Patient has a tracheostomy. With a voice device in place. Focused Labs Anesthesia Preop lab: CBC WBC 9.4 K/mm3 (4.4-11.0) 07/20/24 06:08 RBC 3.91 M/mm3 (4.2-5.4) L 07/20/24 06:08 Hgb 9.8 g/dL (12.0-15.0) L 07/20/24 06:08 Hct 31.4 % (37-47) L 07/20/24 06:08 Plt Count 331 K/mm3 (150-450) 07/20/24 06:08 CHEMISTRY Potassium 3.7 mmol/L (3.5-5.1) 07/20/24 06:08 Sodium 128 mmol/L (136-145) L 07/20/24 06:08 Magnesium 1.8 mg/dL (1.6-2.6) 07/19/24 04:46 Phosphorus 2.5 mg/dL (2.5-4.9) 07/19/24 04:46 BUN 9 mg/dL (7-18) 07/20/24 06:08 Creatinine 0.98 mg/dL (0.55-1.02) 07/20/24 06:08 Glucose 82 mg/dL (74-106) 07/20/24 06:08 POC Glucose 98 mg/dL (74-106) 11/30/21 19:45 TSH 6.330 uIU/mL (0.358-3.740) H 07/18/24 07:20 COAG PT 12.5 SECONDS (11.7-14.9) 07/17/24 16:39 Pre-Assessment Diagnosis/Proposed Procedure Planned Operative Procedure(s): Endoscopic retrograde cholangiopancreatography Anesthesia History Anesthesia History - physiotherapy assistant: Anesthesia History - physiotherapy assistant Hx Hospitalization No 01/20/24 09:05 Any Problems With Anesthesia No 07/17/24 21:41 Cholinesterase deficiency No 07/17/24 21:41 You/Your Family Experience No 07/17/24 21:41 fever (hyperthermia) with Relationship Recent Exposure to Contagious No 07/17/24 21:41 Disease Does patient have nerve No 07/17/24 21:41 stimulator Patient instructed to have No 07/17/24 21:41 device shut off --Does patient have Pacemaker No 07/20/24 12:03 or ICD? When Was Last Pacemaker Check QUESTION #4 FULL TEXT: You/Your Family Experience fever (hyperthermia) with Anesthesia Last Oral Intake Last Oral intake: Last Oral Intake NPO since 00:00 07/20/24 12:03 Meds taken in AM with sips of Yes 07/20/24 12:03 water? Meds patient instructed to Protonix 07/20/24 12:03 take am of surgery Any additional information?: Yes Meds taken in AM with sips of water?: Yes PONV PONV - physiotherapy assistant: PONV - physiotherapy assistant Female HX of Motion Sickness HX of N/V After Surgery Non-Smoker Duration of Surgery greater than 60 minutes Number of Risk Factors PONV Score Height & Weight Height & Weight: Anesthesia: Height & Weight Height 5 ft 4 in 07/20/24 12:03 Weight: 51.313 kg 07/20/24 12:03 Body Mass Index (BMI) 19.4 07/20/24 12:03 Respiratory Assessment Respiratory Assessment - physiotherapy assistant: Respiratory Tract Infection Hx - physiotherapy assistant Hx Respiratory Tract Infection No 07/17/24 21:41 STOP Sleep Apnea STOP Sleep Apnea - physiotherapy assistant: STOP Sleep Apnea - physiotherapy assistant Hx Hypertension Yes 07/19/24 13:58 Hx Sleep Apnea No 07/17/24 21:15 CPAP No 01/20/24 10:25 BIPAP No 01/20/24 09:05 Do you snore loudly (louder No 07/17/24 21:15 than talking or can be heard Do you often feel tired/ No 07/17/24 21:15 fatigued/ sleepy during daytime? Has anyone observed you stop No 07/17/24 21:15 breathing during sleep? STOP Results Negative 07/17/24 21:15 QUESTION #5 FULL TEXT : Do you snore loudly (louder than talking or can be heard through closed doors)? Tobacco Use History Tobacco Use History - physiotherapy assistant: Tobacco Use History - physiotherapy assistant Tobacco Use Smoking Status Former smoker 07/17/24 21:15 Hx Tobacco Use No 07/17/24 21:15 Years Smoking Packs Smoked per Day Smoking Cessation Date was Yes - quit smoking within 15 07/17/24 21:15 within the last 15 years years Hx Smoking Cessation Date 07/22/14 07/17/24 21:15 Hx Smoking Cessation No 07/17/24 21:15 Counseling Hematologic Medial History Hematologic Hx - physiotherapy assistant: Hematologic Medical Hx - layer out plate glass Hx of Blood Transfusion No 07/17/24 21:15 Hx of Transfusion in last 3 No 07/17/24 21:15 Months Date of Last Transfusion (if within last 3 months) Ever experience any problems No 07/17/24 21:15 with transfusion(s)? Specify any problems Hx of Preganancy in last 3 No 07/17/24 21:15 Months Nurse Filling Out Transfusion DREDICK 07/17/24 21:15 & Questions: Date: 07/17/24 07/17/24 21:15 Time: 21:15 07/17/24 21:15 Patient unable to answer at this time (ie. confused, unrespo /Reproduction History /Reproductive History - physiotherapy assistant: /Reproductive Hx- physiotherapy assistant Hx Now No 07/17/24 21:41 Gestational Age (in weeks): EDC: Hx Hx Para Hx Section SAB No 07/17/24 21:41 Active Medications Active Medications: Current Medications Generic Name Dose Route Start Last Admin Trade Name Freq PRN Reason Stop Dose Admin Aspirin 81 mg 07/19/24 08:00 07/20/24 09:44 Aspirin 81 Mg Tab.Chew PO Not Given BREAKFAST STACEY Cholecalciferol 125 mcg 07/19/24 10:00 07/20/24 09:59 Cholecalciferol (Vit D3) 125 Mcg Capsule (5,000 Units) PO Not Given DAILY [facility] Hydralazine HCl 5 mg 07/18/24 09:27 Hydralazine 20 Mg/Ml Vial IV Q4H PRN PRN SBP more than 160 mmHg Protocol Sodium Chloride 100 mls @ 15 mls/hr 07/17/24 21:12 IV .Q6H40M PRN Saline Flush Sodium Chloride 100 mls @ 15 mls/hr 07/17/24 21:12 IV .Q6H40M PRN Additional IVPB Infusion Sodium Chloride 1,000 mls @ 15 mls/hr 07/20/24 15:15 07/20/24 15:18 IV 07/26/24 04:34 15 mls/hr .Q48H STACEY Administration Protocol Levothyroxine Sodium 50 mcg 07/20/24 06:00 07/20/24 04:36 Levothyroxine 50 Mcg Tablet PO 50 mcg [id number]@0600 STACEY Administration Levothyroxine Sodium 100 mcg 07/19/24 06:00 07/19/24 04:29 Levothyroxine 100 Mcg Tablet PO 100 mcg SuSa@0600 STACEY Administration Lisinopril 10 mg 07/19/24 22:00 07/20/24 09:44 Lisinopril 10 Mg Tablet PO Not Given BID [facility] Protocol Morphine Sulfate 2 mg 07/17/24 21:10 07/19/24 21:28 Morphine 2 Mg/Ml Syringe IV 2 mg Q4H PRN PRN Administration Pain Score 6-10 Ondansetron HCl 4 mg 07/17/24 21:10 07/19/24 01:13 Ondansetron 4 Mg/2 Ml Vial IV 4 mg Q6H PRN PRN Administration NAUSEA/VOMITING Pantoprazole Sodium 40 mg 07/19/24 10:00 07/20/24 09:57 Pantoprazole Sodium 40 Mg Tablet PO 40 mg DAILY STACEY Administration Sodium Chloride 10 - 40 ml 07/17/24 21:12 07/19/24 21:28 0.9% Saline Lock 10 Ml Syringe IV 10 ml UD PRN Administration [facility] Medical History Wears glasses Post-menopausal Alcohol use Thyroid disease Difficulty swallowing Gastric reflux Former smoker Hoarseness History of echocardiogram Brain TIA Laryngeal cancer HTN (hypertension) COPD (chronic obstructive pulmonary disease) Home Medications ?Medication ?Instructions ?Recorded ?Last Taken ?Type levothyroxine 75 mcg tablet 50 mcg PO MOTUWETHFR thyroid 11/30/21 01/20/24 History omeprazole 40 mg capsule,delayed 40 mg PO DAILY gerd 11/30/21 Unknown History release aspirin 81 mg chewable tablet 81 mg PO BREAKFAST blood thinner 12/01/21 01/13/24 Rx #30 tabs cholecalciferol (vitamin D3) 125 125 mcg PO DAILY supplement 12/17/23 Unknown History mcg (5,000 unit) capsule lisinopril 10 mg tablet 10 mg PO DAILY bp 12/17/23 01/20/24 History levothyroxine 50 mcg tablet 100 mcg PO SUSA thyroid 01/14/24 Unknown History Allergy/AdvReac Type Severity Reaction Status Date / Time No Known Allergies Allergy Verified 07/17/24 16:08 Family History Sister Cancer ovarian Other CVA (cerebral vascular accident) Surgical History Hx of tracheostomy Hx of esophagogastroduodenoscopy Hx of colonoscopy History of surgery Laryngeal cancer Social History Smoking Status: Former smoker alcohol intake: current alcohol intake frequency: a few times a month Review of Systems (Anesthesia) ROS Narrative System reviewed and no additional complaints, except as documented.
--- NOTE | 2024-07-20 15:44 | EX.PCM.PN.GI ---
Subjective Subjective Patient is scheduled for ERCP today. She does not have any abdominal pain. She denied any nausea, chest pain or shortness of breath. Objective Data Objective Data Vital Signs: Vital Signs Temp Pulse Resp BP Pulse Ox O2 Del Method 97.7 F L 84 15 136/89 H 96 Room Air 07/20/24 15:44 07/20/24 15:44 07/20/24 15:44 07/20/24 15:44 07/20/24 15:44 07/20/24 15:44 Oxygen Delivery Method Room Air Weight: 113 lb 2 oz Body Mass Index (BMI) 19.4 Intake & Output: Intake and Output for Last 24 Hours 07/18/24 07/19/24 07/20/24 23:59 23:59 23:59 Intake Total 1960 / 2210 3772.25 / 4172.25 400 / 400 Output Total 400 / 400 1100 / 1550 1350 / 1350 Balance 1560 / 1810 2672.25 / 2622.25 -950 / -950 Lab / Micro Data 07/20/24 06:08 07/20/24 06:08 Labs: Laboratory Results - last 24 hr 07/17/24 20:49: CA 19-9 Antigen 88342 H 07/20/24 06:08: WBC 9.4, RBC 3.91 L, Hgb 9.8 L, Hct 31.4 L, MCV 80.3 L, MCH 25.1 L, MCHC 31.2 L, RDW Std Deviation 57.9 H, RDW Coeff of Cecelia 20.2 H, Plt Count 331, MPV 8.7, Immature Gran % (Auto) 1.200 H, Neut % (Auto) 84.8 H, Lymph % (Auto) 6.1 L, [place] % (Auto) 6.6, Eos % (Auto) 0.7, Baso % (Auto) 0.6, Absolute Neuts (auto) 8.0 H, Absolute Lymphs (auto) 0.57 L, Nucleated RBC % 0, Differential Comment , Sodium 128 L, Potassium 3.7, Chloride 91 L, Carbon Dioxide 25.0, Anion Gap 12, BUN 9, Creatinine 0.98, Estim Creat Clear Calc 42.12, Est GFR (MDRD) Af Amer 73, Est GFR (MDRD) Non-Af 60, BUN/Creatinine Ratio 9.2 L, Glucose 82, Calcium 10.1, Total Bilirubin 12.50 H, Direct Bilirubin 9.95 H, AST 169 H, ALT 214 H, Alkaline Phosphatase 781 H, Total Protein 7.4, Albumin 3.0 L, Globulin 4.4 H, Lipase 1056 H Physical Exam Const alert, oriented x3 and no apparent distress HEENT normocephalic Eyes Eyes Narrative: +jaundice sclera Neck no lymphadenopathy Neck Narrative: +voice prosthesis. Lymph Lymphatic: no lymphadenopathy noted Resp normal respiratory effort Cardio regular rate, regular rhythm, S1 normal heart sound and S2 normal heart sound GI soft to palpation Extremity no clubbing, cyanosis or edema Skin Skin Narrative: +jaundice Neuro CN's II-XII intact bilaterally and moves all extremities Psych mental status grossly normal Assessment & Plan Assessment/Plan (1) Mass of head of pancreas: (2) Choledocholithiasis with obstruction: QUALIFIERS: Cholecystitis presence: without cholecystitis Qualified Code(s): K80.51 - Calculus of bile duct without cholangitis or cholecystitis with obstruction (3) Jaundice: (4) Transaminitis: (5) Acute pancreatitis: QUALIFIERS: Pancreatitis type: biliary Acute pancreatitis complication: no infection or necrosis Qualified Code(s): K85.10 - Biliary acute pancreatitis without necrosis or infection (6) Hyponatremia: (7) History of laryngeal cancer: (8) COPD (chronic obstructive pulmonary disease): QUALIFIERS: COPD type: emphysema Emphysema type: centrilobular Qualified Code(s): J43.2 - Centrilobular emphysema PLAN: Plan 68-year-old with past medical history of laryngeal cancer status post total laryngectomy with chemoradiation and subsequent esophageal stricture presents with jaundice and discovered to have severe hyperbilirubinemia and biochemical evidence of pancreatitis CT this admission positive for evidence of ~4.2 cm x ~3.4 cm x ~3.2 cm Pancreatic Head Mass complicated by suspected Choledocholithiasis with questionable intraluminal density in CBD consistent with sludge or mass with corresponding laboratory evidence of Severe Hyperbilirubinemia of 8.1 mg/dL and direct bilirubin of 6.71 mg/dL present on admission along with evidence of Transaminitis with AST 222 U/L, ALT 311 U/L and Alkaline Phosphatase of 687 U/L due to suspected newly diagnosed Pancreatic Cancer Elevated serum Lipase of 3,235 U/L present on admission indicative of Acute Pancreatitis likely due to CBD stone or sludge compounding . Recommend IV fluids at 150 cc an hour She will undergo therapeutic ERCP. She was explained alternatives, risk, benefits include not withstanding bleeding, infection, sepsis, perforation, need for charge and . She will have an ASA of 3.
--- NOTE | 2024-07-20 15:59 | PN.HOSP_ITS ---
Reason for Visit Reason for Visit: Diagnoses Hypo-osmolality and hyponatremia (07/17/24) Centrilobular emphysema (07/17/24) Calculus of bile duct without cholangitis or cholecystitis with obstruction (07/17/24) Obstruction of bile duct (07/17/24) Biliary acute pancreatitis without necrosis or infection (07/17/24) Other specified diseases of pancreas (07/17/24) Unspecified jaundice (07/17/24) Elevation of levels of liver transaminase levels (07/17/24) Personal history of malignant neoplasm of larynx (07/17/24) Objective Data Objective Data Vital Signs: Vital Signs Temp Pulse Resp BP Pulse Ox O2 Del Method 97.7 F L 84 15 136/89 H 96 Room Air 07/20/24 15:44 07/20/24 15:44 07/20/24 15:44 07/20/24 15:44 07/20/24 15:44 07/20/24 15:44 Oxygen Delivery Method Room Air Weight: 113 lb 2 oz Body Mass Index (BMI) 19.4 Intake & Output: Intake and Output for Last 24 Hours 07/18/24 07/19/24 07/20/24 23:59 23:59 23:59 Intake Total 1960 / 2210 3772.25 / 4172.25 400 / 400 Output Total 400 / 400 1100 / 1550 1350 / 1350 Balance 1560 / 1810 2672.25 / 2622.25 -950 / -950 Lab / Micro Data 07/20/24 06:08 07/20/24 06:08 Labs: Laboratory Results - last 24 hr 07/17/24 20:49: CA 19-9 Antigen 43324 H 07/20/24 06:08: WBC 9.4, RBC 3.91 L, Hgb 9.8 L, Hct 31.4 L, MCV 80.3 L, MCH 25.1 L, MCHC 31.2 L, RDW Std Deviation 57.9 H, RDW Coeff of Cecelia 20.2 H, Plt Count 331, MPV 8.7, Immature Gran % (Auto) 1.200 H, Neut % (Auto) 84.8 H, Lymph % (Auto) 6.1 L, Cherry % (Auto) 6.6, Eos % (Auto) 0.7, Baso % (Auto) 0.6, Absolute Neuts (auto) 8.0 H, Absolute Lymphs (auto) 0.57 L, Nucleated RBC % 0, Differential Comment , Sodium 128 L, Potassium 3.7, Chloride 91 L, Carbon Dioxide 25.0, Anion Gap 12, BUN 9, Creatinine 0.98, Estim Creat Clear Calc 42.12, Est GFR (MDRD) Af Amer 73, Est GFR (MDRD) Non-Af 60, BUN/Creatinine Ratio 9.2 L, Glucose 82, Calcium 10.1, Total Bilirubin 12.50 H, Direct Bilirubin 9.95 H, AST 169 H, ALT 214 H, Alkaline Phosphatase 781 H, Total Protein 7.4, Albumin 3.0 L, Globulin 4.4 H, Lipase 1056 H Physical Exam Narrative Seen and examined. No acute change since admission. Blood pressure controlled. Was seen by oncologist. Patient denies abdominal pain or upper back pain. Denies prior history of pancreatic disease or disorder or hepatobiliary disease. Complain of loss of appetite, fatigue and generalized weakness. She was admitted with jaundice. History of COPD status post total laryngectomy. Quit smoking in 2014. History of COPD Physical exam General: Alert, Oriented x3, Cooperative HEENT: Icterus present. Atraumatic, PERRLA, EOMI, Normocephalic Oral: No Gingival or Mucosal Lesions/ Ulcerations Neck: Tracheostomy with speaking valve. Status post total laryngectomy Chest wall/Lungs: Air entry diminished in bilateral lung bases. No crepitation/rhonchi Cardiovascular: Regular rate, Regular Rhythm, Normal S1, Normal S2, No M/G/R Abdomen: Bowel Sounds Present, Soft, Non Tender, Non-Distended. No hepatosplenomegaly. Scaphoid abdomen : No dysuria. No renal angle tenderness. No suprapubic tenderness. Extremities: No edema, Capillary Refill Less than 3 Seconds Skin: Yellow skin/jaundice Musculoskeletal: No Tenderness to Palpation of Joints or Extremities. ROM full. Neurological: Cranial nerves II-XII grossly intact, DTR 2+/4. No acute focal neurological deficit. Psych/Mental Status: Flat affect. Assessment & Plan Assessment/Plan (1) Mass of head of pancreas: (2) Choledocholithiasis with obstruction: QUALIFIERS: Cholecystitis presence: without cholecystitis Q ualified Code(s): K80.51 - Calculus of bile duct without cholangitis or cholecystitis with obstruction (3) Jaundice: (4) Transaminitis: (5) Acute pancreatitis: QUALIFIERS: Pancreatitis type: biliary Acute pancreatitis complication: no infection or necrosis Qualified Code(s): K85.10 - Biliary acute pancreatitis without necrosis or infection (6) Hyponatremia: (7) History of laryngeal cancer: (8) COPD (chronic obstructive pulmonary disease): QUALIFIERS: COPD type: emphysema Emphysema type: centrilobular Q ualified Code(s): J43.2 - Centrilobular emphysema PLAN: Plan 68-year-old female was admitted for generalized weakness, decreased appetite sent to ER from urgent care Metavir score she went for green phlegm and drainage from tracheostomy and was noticed jaundiced. As per patient, she noticed jaundice less than a week ago. 1. Pancreatic head mass with CBD obstruction resulting into jaundice: Patient is being admitted on [facility] floor. CT abdomen and ultrasound individually reviewed. CT abdomen shows pancreatic head mass 4.2 x 3.4 x 3.2 cm with significant biliary dilatation and moderately distended GB. Ductal dilatation in the pancreas. Distal esophageal dilatation and left retroperitoneal adenopathy. GB ultrasound shows sludge or mass in distal CBD. Significant biliary dilatation. Discussed with the GI. Plan for ERCP on Saturday. 07/19: Patient evaluated by oncologist Dr. Garibay. Mass of head and pancreas with retroperitoneal lymph nodes, concerning for metastatic malignancy. Patient will need biopsy before discussion of treatment and she wants to pursue treatment of cancer and [facility]. Plan for ERCP and possible CBD stenting and biopsy tomorrow AM. 07/20: Total bilirubin going up mainly indirect hyperbilirubinemia, TB 12.5, direct 10 mg/dL. AST and ALT no significant change. Alkaline phosphatase elevated worsening. Plan for ERCP today. 2. Elevated lipase probably due to elevated pancreatic mass suspected pancreatic cancer/CBD obstruction: Patient does not have abdominal pain and does not reported pancreatic infiltrate so I am doubtful whether patient has acute pancreatitis. IV fluid normal saline +20 mEq KCl at 125 mL/h 07/20: CK, LDH normal. Lipase 1056 similar. Patient does not have abdominal pain. 3. Mild Hyponatremia of 128 mmol/L present on admission :-Normal 4. History of Laryngeal Cancer (2016); with subsequent tracheostomy and stoma; s/p chemotherapy and radiation - Noted. 5. History of tobacco abuse; with subsequent COPD and chronic cough - Stable with no evidence of acute flare at this time. Continue prn nebulizers. 6. History of esophageal stenosis with chronic dysphagia; s/p EGD with dilatation - Noted. 7. Essential hypertension; on lisinopril - Hold lisinopril and give IV Hydralazine prn for systolic blood pressure > 160 mmHg. 07/19 blood pressure elevated than baseline 260/96. Lisinopril dose increased to 10 mg twice daily 8. Hypothyroidism; on levothyroxine - Give levothyroxine IV while patient is NPO. 9. History of benign liver mass; s/p excision (2015) - Noted. 10. History of TIA (2021) - Noted. 11. GERD; on omeprazole - Continue PPI IV. 12. OA - Stable. 13. DVT prophylaxis - SCD's only with impending ERCP and stent placement in the AM. Charges/Coding Visit Charges Inpatient E&M: 54120 Subs Hosp L2
--- NOTE | 2024-07-20 16:50 | RAD_ITS ---
Exam: FL ERCP Biliary and Pancreatic Ductal Systems Comparison: CT July 17, 2024 showing abrupt marked narrowing of dilated intrahepatic and extrahepatic ducts at the level of enlargement and hypodense mass involving the pancreas. History: ERCP Radiation: 75.5 seconds of fluoroscopy time, 10.49 mGy dose provided. IMAGES: 35 images, fluoroscopic spot images. FINDINGS: Initial balloon filling the lower cervical region. Advancement of the endoscopy tube. Distention of the long balloon across a presumed type stenosis in the expected region of the head of the pancreas with subsequent stent deployment. RAD/ERCP Biliary/Pancreas IMPRESSION: Intraprocedural exam. Please see the procedure note. Electronically Signed: Belen Dubois MD at 3:03 EST ,
--- NOTE | 2024-07-20 18:38 | PCM.POST.ANE ---
Anesthesia: Postop Eval I Current Vital Signs Temperature: 97.3 F Pulse Rate: 87 Blood Pressure: 172/100 Respiratory Rate: 16 Pulse Ox: 100 Oxygen Delivery Method: Room Air Assessment Airway patent: Yes Spontaneous unlabored respirations: Yes Mental status: Awake and Calm nausea: No Vomiting: No Anesthesia Complication: No Fluid Hydration Crystalloid volume administer (ml): 800 Total IV fluid infused: 800 Progress Note Anesthesia document: Postop Eval 1 completed: Yes
--- NOTE | 2024-07-20 18:39 | OP.ERCP_ITS ---
Patient Name: Little Ramos Procedure Date: 07/20/2024 3:46 PM Date of : 1955 Age: 68 Procedure: ERCP Indications: Abdominal pain of suspected biliary origin, Abdominal pain of suspected pancreatic origin, Jaundice, Acute pancreatitis, Malignant tumor of the head of pancreas Providers: Marcelo Harden DO Medicines: Monitored Anesthesia Care Patient Profile: This is a 68 year old female. Refer to note in patient chart for documentation of history and physical. Patient has symptoms of chronic epigastric abdominal pain, acute jaundice and chronic nausea. This patient has no history of previous ERCP. This patient has no history of surgical alteration of the upper digestive tract anatomy. Complications: No immediate complications. Procedure: Pre-Anesthesia Assessment: - Prior to the procedure, a History and Physical was performed, and patient medications and allergies were reviewed. The patient is competent. The risks and benefits of the procedure and the sedation options and risks were discussed with the patient. All questions were answered and informed consent was obtained. Patient identification and proposed procedure were verified by the physician in the pre-procedure area. Mental Status Examination: alert and oriented. Airway Examination: normal oropharyngeal airway and neck mobility. Respiratory Examination: clear to auscultation. CV Examination: normal. Prophylactic Antibiotics: The patient does not require prophylactic antibiotics. Prior Anticoagulants: The patient has taken no anticoagulant or antiplatelet agents except for NSAID medication. ASA Grade Assessment: II - A patient with mild systemic disease. After reviewing the risks and benefits, the patient was deemed in satisfactory condition to undergo the procedure. The anesthesia plan was to use monitored anesthesia care (MAC). Immediately prior to administration of medications, the patient was re-assessed for adequacy to receive sedatives. The heart rate, respiratory rate, oxygen saturations, blood pressure, adequacy of pulmonary ventilation, and response to care were monitored throughout the procedure. The physical status of the patient was re-assessed after the procedure. After obtaining informed consent, the scope was passed under direct vision. Throughout the procedure, the patient's blood pressure, pulse, and oxygen saturations were monitored continuously. The Duodenoscope was introduced through the mouth, and advanced to the duodenum and used for direct visualization of the bile duct and ventral pancreatic duct. The ERCP was accomplished without difficulty. The patient tolerated the procedure well. Scope In: 4:58:13 PM Scope Out: 6:19:13 PM Total Procedure Duration Time 1 hour 21 minutes 0 seconds Findings: The furnace process supervisor film was normal. The esophagus was successfully intubated under direct vision. The scope was advanced to a normal major papilla in the descending duodenum without detailed examination of the pharynx, larynx and associated structures, and upper GI tract. The upper GI tract was grossly normal. A long 0.025 inch Jagwire was passed into the ventral pancreatic duct. The ventral pancreatic duct was then deeply cannulated with the short-nosed traction sphincterotome. Contrast was injected. I personally interpreted the pancreatic duct images. There was brisk flow of contrast through the ducts. Image quality was adequate. Contrast extended to the pancreatic duct. Diffuse irregularity of the pancreatic duct was seen in the ventral pancreatic duct in the head of the pancreas. Dilation of the main pancreatic duct with 5-7-8.5 Fr catheter dilator was successful. One 10 Fr by 7 cm temporary stent was placed 5 cm into the ventral pancreatic duct. Clear fluid flowed through the stent. The stent was in good position. Cells for cytology were obtained by brushing in the ventral pancreatic duct in the head of the pancreas. A large frondlike/villous mass measuring ten mm in diameter was found at the major papilla. The major papilla was bulging. A 0.035 inch x 260 cm straight Dreamwire was passed into the biliary tree. The short-nosed traction sphincterotome was passed over the guidewire and the bile duct was then deeply cannulated. Contrast was injected. Opacification of the entire biliary tree except for the cystic duct and gallbladder and main bile duct was successful. The maximum diameter of the ducts was 20 mm. The lower third of the main bile duct contained one stone, which was 6 mm in diameter. The entire biliary tree was severely dilated, secondary to a stricture. The largest diameter was 19 mm. A 5 mm biliary sphincterotomy was made with a traction (standard) sphincterotome using ERBE electrocautery. Moderate bleeding from the sphincterotomy stopped within 5 minutes. The biliary tree was swept with a 10 mm balloon starting at the bifurcation. Sludge was swept from the duct. All stones were removed. A standard esophagogastroduodenoscopy scope was used for the examination of the upper gastrointestinal tract. The scope was passed under direct vision through the upper GI tract. One benign-appearing, intrinsic severe stenosis was found 19 to 21 cm from the incisors. This stenosis measured 3 cm (in length). The stenosis was traversed after dilation. A TTS dilator was passed through the scope. Dilation with a 15-16.5-18 mm balloon dilator was performed to 15 mm under fluoroscopic guidance at the cricopharyngeus. Impression: - An irregularity was found in the ventral pancreatic duct in the head of the pancreas. - The main pancreatic duct was successfully dilated. - One temporary stent was placed into the ventral pancreatic duct. - Cells for cytology obtained in the ventral pancreatic duct in the head of the pancreas. Procedure Code(s): --- Professional --- 91332, Endoscopic retrograde cholangiopancreatography (ERCP); with placement of endoscopic stent into biliary or pancreatic duct, including pre- and post-dilation and guide wire passage, when performed, including sphincterotomy, when performed, each stent 09451, Endoscopic retrograde cholangiopancreatography (ERCP); with removal of calculi/debris from biliary/pancreatic duct(s) 51498, 59, Endoscopic retrograde cholangiopancreatography (ERCP); with sphincterotomy/papillotomy 89163, 51, Esophagogastroduodenoscopy, flexible, transoral; with transendoscopic balloon dilation of esophagus (less than 30 mm diameter) 17951, 26,59, Intraluminal dilation of strictures and/or obstructions (eg, esophagus), radiological supervision and interpretation 48431, 26, Endoscopic catheterization of the pancreatic ductal system, radiological supervision and interpretation CPT copyright 2021 [employer]. All rights reserved. The codes documented in this report are preliminary and upon house nurse review may be revised to meet current compliance requirements. Marcelo Harden DO 07/20/2024 6:39:25 PM This report has been signed electronically. Number of Addenda: 0 Note Initiated On: 07/20/2024 3:46 PM
--- NOTE | 2024-07-20 18:40 | OP.CCLET_ITS ---
07/20/2024 Ashanti Kirby Re : ERCP procedure for Little Lucio This procedure was performed on Saturday, July 20, 2024. My impressions and recommendations are as follows: Impressions : - An irregularity was found in the ventral pancreatic duct in the head of the pancreas. - The main pancreatic duct was successfully dilated. - One temporary stent was placed into the ventral pancreatic duct. - Cells for cytology obtained in the ventral pancreatic duct in the head of the pancreas. Recommendations : My findings are described in the full procedure note, which is enclosed. If I can be of further assistance, please feel free to contact me at . Sincerely, Marcelo Harden, 07/20/2024 6:39:25 PM This report has been signed electronically.
--- NOTE | 2024-07-20 18:40 | POSTOPAN2_ITS ---
Anesthesia Postop Eval I Sum Postop Eval Completion status Anesthesia document: Postop Eval 1 completed: Yes Anesthesia Postop Eval I Summary Anesthesia Postop Eval I Summary: Anesthesia Postop Eval I: Assessment Summary Airway patent Yes 07/20/24 18:40 [email or web address] [email or web address] Spontaneous unlabored Yes 07/20/24 18:40 EDUCATIONAL ADVISER.MDOT respirations Mental status Awake,Calm 07/20/24 18:40 EDUCATIONAL ADVISER.MDOT nausea No 07/20/24 18:40 EDUCATIONAL ADVISER.MDOT Vomiting No 07/20/24 18:40 EDUCATIONAL ADVISER.MDOT Anesthesia Postop Eval I: Fluid Summary Crystalloid volume administer 800 07/20/24 18:40 EDUCATIONAL ADVISER.MDOT (ml) Colloids volume administered ( ml) Blood Product volume administered (ml) Total IV fluid infused 800 07/20/24 18:40 EDUCATIONAL ADVISER.MDOT Anesthesia Postop Eval I: Summary Notes Anesthesia Complication No 07/20/24 18:40 EDUCATIONAL ADVISER.MDOT Anesthesia Complication Comment: Post-operative progress note Anesthesia: Postop Eval II Evaluation Mental status: Awake and Calm Pain Level: 0 nausea: No Vomiting: No Complications Anesthesia Complication: No
--- NOTE | 2024-07-20 18:40 | PCM.POSTANE2 ---
Anesthesia Postop Eval I Sum Postop Eval Completion status Anesthesia document: Postop Eval 1 completed: Yes Anesthesia Postop Eval I Summary Anesthesia Postop Eval I Summary: Anesthesia Postop Eval I: Assessment Summary Airway patent Yes 07/20/24 18:40 MAT MACHINE TENDER.MDOT Spontaneous unlabored Yes 07/20/24 18:40 MAT MACHINE TENDER.MDOT respirations Mental status Awake,Calm 07/20/24 18:40 MAT MACHINE TENDER.MDOT nausea No 07/20/24 18:40 MAT MACHINE TENDER.MDOT Vomiting No 07/20/24 18:40 MAT MACHINE TENDER.MDOT Anesthesia Postop Eval I: Fluid Summary Crystalloid volume administer 800 07/20/24 18:40 MAT MACHINE TENDER.MDOT (ml) Colloids volume administered ( ml) Blood Product volume administered (ml) Total IV fluid infused 800 07/20/24 18:40 MAT MACHINE TENDER.MDOT Anesthesia Postop Eval I: Summary Notes Anesthesia Complication No 07/20/24 18:40 MAT MACHINE TENDER.MDOT Anesthesia Complication Comment: Post-operative progress note Anesthesia: Postop Eval II Evaluation Mental status: Awake and Calm Pain Level: 0 nausea: No Vomiting: No Complications Anesthesia Complication: No
[2024-07-20] MEDS: Piperacil/Tazobactam 3.375 GM in 0.9% Normal Saline (50mL MB+) 50 ML IV (18:50)
[2024-07-20] MEDS: Ondansetron 4 MG/2 ML Vial IV (20:32)
[2024-07-20] MEDS: Lisinopril 10 MG Tablet PO (21:13)
[2024-07-21] MEDS: Morphine 2 MG/ML Syringe IV (04:31)
[2024-07-21 04:33] VITALS: BP 165/100; PULSE 93; RESP 18; TEMP 36.5; O2SAT 100
[2024-07-21 05:28] VITALS: BMI 18.8
[2024-07-21] MEDS: Levothyroxine 50 MCG Tablet PO (05:36)
[2024-07-21] MEDS: Piperacil/Tazobactam 3.375 GM in 0.9% Normal Saline (50mL MB+) 50 ML IV (05:37)
[2024-07-21 06:18] LABS: Absolute Lymphocyte Count 0.54 X10^3/uL (0.83-4.51); Absolute Neutrophil Count 11.1 X10^3/uL (2.0-7.7); Basophil# 0.02 X10^3/uL; Basophil% 0.2 % (0-1); Hematocrit 30.9 % (37-47); Hemoglobin 9.5 g/dL (12.0-15.0); Lymphocyte # 0.54 X10^3/ul (0.83-4.51); Lymphocyte % 4.4 % (19-41); Mean Corp Hgb Conc 30.7 g/dL (32-36); Mean Corpuscular Hgb 25.1 pg (27.0-32.0); Mean Corpuscular Volume 81.7 fL (81-99); Mean Platelet Vol. 8.7 fl (6.2-12.0); Monocyte% 4.1 % (0-10); NRBC Flagged by Analyzer 0 % (0-5); Neutrophil # 11.11 X10^3/uL (2.7-7.7); Neutrophil % 90.1 % (47-70); POSITIVE DIFFERENTIAL YES; POSITIVE MORPHOLOGY YES; Platelet Count 346 K/mm3 (150-450); RBC Distribution Width CV 20.7 % (11.6-14.6); RBC Distribution Width SD 60.2 fl (35.1-43.9); Red Blood Count 3.78 M/mm3 (4.2-5.4); White Blood Count 12.3 K/mm3 (4.4-11.0)
[2024-07-21 06:21] LABS: Differential Indicated SCAN CRITERIA MET
[2024-07-21 06:41] LABS: AST(SGOT) 119 U/L (15-37); Alanine Aminotransfer ALT/SGPT 188 U/L (13-56); Albumin, Serum 2.8 g/dL (3.2-5.0); Alkaline Phosphatase 728 U/L (45-117); Anion Gap 15 (5-15); BUN 16 mg/dL (7-18); BUN/Creat Ratio 13.9 RATIO (10-20); Bilirubin, Direct 6.14 mg/dL (0.00-0.30); Calcium,Total 9.3 mg/dL (8.5-10.1); Chloride 91 mmol/L (98-107); Creatinine, Serum 1.15 mg/dL (0.55-1.02); EST Glomerular Filtration Rate 50 mL/min (>60); Est Glom Filt Rate - Afr Amer 60 mL/min (>60); Estimated Creatinine Clearance 37.54 ml/min; Globulin 4.8 g/dL (2.2-4.2); Glucose 113 mg/dL (74-106); Potassium 4.2 mmol/L (3.5-5.1); Protein, Total 7.6 g/dL (6.4-8.2); Sodium Level 126 mmol/L (136-145)
[2024-07-21 06:48] LABS: Differential Comment SCANNED
[2024-07-21 07:56] VITALS: BP 138/100; PULSE 84; RESP 18; TEMP 36.4; O2SAT 100
[2024-07-21] MEDS: Aspirin 81 MG TAB.CHEW PO (08:04)
[2024-07-21] MEDS: Cholecalciferol (Vit D3) 125 MCG CAPSULE (5,000 UNITS) PO (08:04)
[2024-07-21] MEDS: Lisinopril 10 MG Tablet PO (08:05)
[2024-07-21] MEDS: Pantoprazole Sodium 40 MG Tablet PO (08:05)
--- NOTE | 2024-07-21 10:16 | PN.GI_ITS ---
Subjective Subjective Patient underwent ERCP yesterday for obstructive jaundice. She states that she wants to go home today. Objective Data Objective Data Vital Signs: Vital Signs Temp Pulse Resp BP Pulse Ox O2 Del Method 98.2 F 84 16 141/100 H 98 Room Air 07/21/24 14:00 07/21/24 14:00 07/21/24 14:00 07/21/24 14:00 07/21/24 14:00 07/21/24 14:00 Oxygen Delivery Method Room Air Weight: 110 lb 7.225 oz Body Mass Index (BMI) 18.8 Intake & Output: Intake and Output for Last 24 Hours 07/19/24 07/20/24 07/21/24 23:59 23:59 23:59 Intake Total 3772.25 / 4172.25 450 / 450 450 / 450 Output Total 1100 / 1550 1350 / 1350 Balance 2672.25 / 2622.25 -900 / -900 450 / 450 Lab / Micro Data 07/21/24 06:08 07/21/24 06:08 Labs: Laboratory Results - last 24 hr 07/17/24 20:49: CA 19-9 Serial Monitor TNP 07/21/24 06:08: WBC 12.3 H, RBC 3.78 L, Hgb 9.5 L, Hct 30.9 L, MCV 81.7, MCH 25.1 L, MCHC 30.7 L, RDW Std Deviation 60.2 H, RDW Coeff of Cecelia 20.7 H, Plt Count 346, MPV 8.7, Immature Gran % (Auto) 1.200 H, Neut % (Auto) 90.1 H, Lymph % (Auto) 4.4 L, [place] % (Auto) 4.1, Eos % (Auto) 0.0, Baso % (Auto) 0.2, Absolute Neuts (auto) 11.1 H, Absolute Lymphs (auto) 0.54 L, Nucleated RBC % 0, Differential Comment SCANNED, Sodium 126 L, Potassium 4.2, Chloride 91 L, Carbon Dioxide 21.0, Anion Gap 15, BUN 16, Creatinine 1.15 H, Estim Creat Clear Calc 37.54, Est GFR (MDRD) Af Amer 60, Est GFR (MDRD) Non-Af 50 L, BUN/Creatinine Ratio 13.9, Glucose 113 H, Calcium 9.3, Total Bilirubin 7.50 H, Direct Bilirubin 6.14 H, AST 119 H, ALT 188 H, Alkaline Phosphatase 728 H, Total Protein 7.6, A lbumin 2.8 L, Globulin 4.8 H Radiography Diagnostic Testing: Radiology Impression Endo Retro Cholangiopancreatogram 07/20/24 16:50 IMPRESSION: Intraprocedural exam. Please see the procedure note. Electronically Signed: Belen Dubois MD at 3:03 EST , Physical Exam Narrative Seen and examined. Jaundice improving. No abdominal pain No acute change since admission. Blood pressure controlled. Was seen by oncologist. Denies prior history of pancreatic disease or disorder or hepatobiliary disease. Complain of loss of appetite, fatigue and generalized weakness. She was admitted with jaundice. History of COPD status post total laryngectomy. Quit smoking in 2014. History of COPD Physical exam General: Alert, Oriented x3, Cooperative HEENT: Icterus present. Atraumatic, PERRLA, EOMI, Normocephalic Oral: No Gingival or Mucosal Lesions/ Ulcerations Neck: Tracheostomy with speaking valve. Status post total laryngectomy Chest wall/Lungs: Air entry diminished in bilateral lung bases. No crepitation/rhonchi Cardiovascular: Regular rate, Regular Rhythm, Normal S1, Normal S2, No M/G/R Abdomen: Bowel Sounds Present, Soft, Non Tender, Non-Distended. No hepatosplenomegaly. Scaphoid abdomen : No dysuria. No renal angle tenderness. No suprapubic tenderness. Extremities: No edema, Capillary Refill Less than 3 Seconds Skin: Yellow skin/jaundice Musculoskeletal: No Tenderness to Palpation of Joints or Extremities. ROM full. Neurological: Cranial nerves II-XII grossly intact, DTR 2+/4. No acute focal neurological deficit. Psych/Mental Status: Flat affect. Assessment & Plan Assessment/Plan (1) Mass of head of pancreas: (2) Choledocholithiasis with obstruction: QUALIFIERS: Cholecystitis presence: without cholecystitis Q ualified Code(s): K80.51 - Calculus of bile duct without cholangitis or cholecystitis with obstruction (3) Jaundice: (4) Transaminitis: (5) Acute pancreatitis: QUALIFIERS: Pancreatitis type: biliary Acute pancreatitis complication: no infection or necrosis Qualified Code(s): K85.10 - Biliary acute pancreatitis without necrosis or infection (6) Hyponatremia: (7) History of laryngeal cancer: (8) COPD (chronic obstructive pulmonary disease): QUALIFIERS: COPD type: emphysema Emphysema type: centrilobular Q ualified Code(s): J43.2 - Centrilobular emphysema PLAN: Plan 68-year-old female was admitted for generalized weakness, decreased appetite sent to ER from urgent care Metavir score she went for green phlegm and drainage from tracheostomy and was noticed jaundiced. As per patient, she noticed jaundice less than a week ago. Pancreatic head mass with CBD obstruction resulting into jaundice: Patient is being admitted on [facility] floor. CT abdomen and ultrasound individually reviewed. CT abdomen shows pancreatic head mass 4.2 x 3.4 x 3.2 cm with significant biliary dilatation and moderately distended GB. Ductal dilatation in the pancreas. Distal esophageal dilatation and left retroperitoneal adenopathy. GB ultrasound shows sludge or mass in distal CBD. Significant biliary dilatation. Discussed with the GI. Plan for ERCP on Saturday. 07/19: Patient evaluated by oncologist Dr. Garibay. Mass of head and pancreas with retroperitoneal lymph nodes, concerning for metastatic malignancy. Patient will need biopsy before discussion of treatment and she wants to pursue treatment of cancer and [facility]. Plan for ERCP and possible CBD stenting and biopsy tomorrow AM. 07/20: Total bilirubin going up mainly indirect hyperbilirubinemia, TB 12.5, direct 10 mg/dL. AST and ALT no significant change. Alkaline phosphatase elevated worsening. Plan for ERCP today. 07/21: She underwent successful ERCP with decompression of the hepatobiliary system and the pancreatic duct. She is okay to discharge from GI standpoint. Unfortunately her CA 19-9 came back at 11,000 and she does have evidence of metastatic disease. Elevated lipase probably due to elevated pancreatic mass suspected pancreatic cancer/CBD obstruction: Patient does not have abdominal pain and does not reported pancreatic infiltrate so I am doubtful whether patient has acute pancreatitis. IV fluid normal saline +20 mEq KCl at 125 mL/h 07/20: CK, LDH normal. Lipase 1056 similar. Patient does not have abdominal pain.
--- NOTE | 2024-07-21 11:36 | PCM.DC ---
Discharge Instructions Diet Discharge Diet: Light diet - advance as tolerated and Low fat / Low cholesterol DC O2, CPAP, BIPAP needs Home O2 Discharge instructions: No Dressing / Incision Discharge Activity: Return to Normal Activity Weight Bearing Status: Weight bearing as tolerated Dressing / Incision Call your doctor if you observe: Fever of 101 or Higher, Coldness, Increased Pain, Numbness or Tingling, Change in Color, Inability to urinate, Inability to have a bowel movement, Shortness of breath, Dizziness, Fainting spells, Swelling in the ankles, Chest pain, Prolonged hiccupping, Increased palpitations (irregular heartbeat) and Calf discomfort Follow Up Care When: IN 2 WEEKS Test Results: Test results from this visit will be discussed in further detail at your follow-up appointment, if applicable. Discharge Plan Admission Admit Date/Time: 07/17/24 20:39 Primary Reason for Your Visit: Pancreatic mass, obstructive jaundice. History of laryngeal cancer status Attending Provider: Sean Zavala Primary Care Provider: Ashanti Lucio Consulting Providers: Jose Ramon Moctezuma; Jose Ramon Rogers; Dwaine Garibay; Rock Lomax; Juan Pablo Jaffe; Sami Savage; Chito Burr; Behzad Hill; Agus Carter; Mariah Sam CAD APPLICATION SUPPORT SPECIALIST Instructions Additional Instructions / Restrictions: Advised to follow-up with oncologist in 1 week with ERCP brushing/biopsy patient has pancreatic mass with multiple retroperitoneal lymphadenopathy. Liver chemistry in 1 week and follow-up with PCP/oncologist. Discharge Orders/Prescriptions Prescriptions: New ciprofloxacin HCl [Cipro] 500 mg tablet 500 mg PO BID 5 Days Qty: 10 0RF Continued lisinopril 10 mg tablet 10 mg PO DAILY cholecalciferol (vitamin D3) 125 mcg (5,000 unit) capsule 125 mcg PO DAILY omeprazole 40 mg capsule,delayed release(DR/EC) 40 mg PO DAILY Patient Comments: TAKE 1 CAPSULE BY MOUTH ONCE DAILY levothyroxine 75 mcg tablet 50 mcg PO MOTUWETHFR aspirin 81 mg Tablet,Chewable 81 mg PO BREAKFAST Qty: 30 11RF levothyroxine 50 mcg tablet 100 mcg PO SUSA Referrals / Follow Up: Ashanti Lucio PA-C [Primary Care Provider] - Within 2 Weeks Disposition Disposition (needs filled in before D/C Order can be placed): Home, Self Care
--- NOTE | 2024-07-21 11:42 | PCM.DC.SUM ---
Providers Date of Admission: 07/17/24 Date of Discharge: 07/21/24 Primary Care Physician: Ashanti Lucio PA-C Consultations 07/18/24 07:29 Consult: Oncology/Hematology Routine Consulting Provider: [facility] ([facility]) Reason for Consult: Newly diagnosed pancreatic head mass suspicious for pancreatic CA. EMERGENT Consult: No MD Notified: Yes Date Notified: 07/19/24 Time Notified: 11:57 Method of Notification: Answering Service 07/18/24 09:27 Consult: Gastroenterology Routine Consulting Provider: [facility] Reason for Consult: Pancratic cancer, need ERCP EMERGENT Consult: No MD Notified: Yes Date Notified: 07/18/24 Time Notified: 09:27 Method of Notification: Text Reason For Visit: PANCREATIC HEAD MASS WITH CHOLEDOCHOLITIASIS, Diagnosis Discharge Diagnosis (1) Mass of head of pancreas: Status: Acute Code(s): K86.89 - Other specified diseases of pancreas (2) Choledocholithiasis with obstruction: Status: Acute Code(s): K80.51 - Calculus of bile duct without cholangitis or cholecystitis with obstruction Qualifiers: Cholecystitis presence: without cholecystitis Qualified Code(s): K80.51 - Calculus of bile duct without cholangitis or cholecystitis with obstruction (3) Jaundice: Status: Acute Code(s): R17 - Unspecified jaundice (4) Transaminitis: Status: Acute Code(s): R74.01 - Elevation of levels of liver transaminase levels (5) Acute pancreatitis: Status: Acute Code(s): K85.90 - Acute pancreatitis without necrosis or infection, unspecified Qualifiers: Pancreatitis type: biliary Acute pancreatitis complication: no infection or necrosis Qualified Code(s): K85.10 - Biliary acute pancreatitis without necrosis or infection (6) Hyponatremia: Status: Acute Code(s): E87.1 - Hypo-osmolality and hyponatremia (7) History of laryngeal cancer: Status: Acute Code(s): Z85.21 - Personal history of malignant neoplasm of larynx (8) COPD (chronic obstructive pulmonary disease): Status: Chronic Code(s): J44.9 - Chronic obstructive pulmonary disease, unspecified Qualifiers: COPD type: emphysema Emphysema type: centrilobular Qualified Code(s): J43.2 - Centrilobular emphysema Plan 68-year-old female was admitted for generalized weakness, decreased appetite sent to ER from urgent care Metavir score she went for green phlegm and drainage from tracheostomy and was noticed jaundiced. As per patient, she noticed jaundice less than a week ago. 1. Pancreatic head mass with CBD obstruction resulting into jaundice: Patient is being admitted on [facility] floor. CT abdomen and ultrasound individually reviewed. CT abdomen shows pancreatic head mass 4.2 x 3.4 x 3.2 cm with significant biliary dilatation and moderately distended GB. Ductal dilatation in the pancreas. Distal esophageal dilatation and left retroperitoneal adenopathy. GB ultrasound shows sludge or mass in distal CBD. Significant biliary dilatation. Discussed with the GI. Plan for ERCP on Saturday. 07/19: Patient evaluated by oncologist Dr. Garibay. Mass of head and pancreas with retroperitoneal lymph nodes, concerning for metastatic malignancy. Patient will need biopsy before discussion of treatment and she wants to pursue treatment of cancer and . Plan for ERCP and possible CBD stenting and biopsy tomorrow AM. 07/20: Total bilirubin going up mainly indirect hyperbilirubinemia, TB 12.5, direct 10 mg/dL. AST and ALT no significant change. Alkaline phosphatase elevated worsening. Plan for ERCP today. 07/21:Patient had ERCP yesterday. No abdominal pain. Total bilirubin is decreasing from 12.5-7.5, direct 10-6.4. Transaminases and alkaline phosphatase also improving. CA 19-9 is 11,119 units per mL. Most likely patient has pancreatic cancer with wide metastasis to retroperitoneal lymph nodes. The patient had ERCP yesterday. Findings below ERCP impressions : - An irregularity was found in the ventral pancreatic duct in the head of the pancreas. - The main pancreatic duct was successfully dilated. - One temporary stent was placed into the ventral pancreatic duct. - Cells for cytology obtained in the ventral pancreatic duct in the head of the pancreas. Pancreatic duct brushings pending. Advised to follow-up in GI clinic in 2 weeks. Mild leukocytosis but no fever. With her risk of infection especially in immunocompromised host after ERCP invasive procedure, patient empirically was started on Zosyn yesterday evening. Prescription of ciprofloxacin 500 twice daily for 5 days given empirically. Advised liver chemistry in 1 week and follow with PCP/oncologist. Discussed with the patient that she needs to follow-up with oncology, [facility] in first week of July. 2. Elevated lipase probably due to elevated pancreatic mass suspected pancreatic cancer/CBD obstruction: Patient does not have abdominal pain and does not reported pancreatic infiltrate so I am doubtful whether patient has acute pancreatitis. IV fluid normal saline +20 mEq KCl at 125 mL/h 07/20: CK, LDH normal. Lipase 1056 similar. Patient does not have abdominal pain. 3. 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 Fluid restriction 1500 mL/day 4. History of Laryngeal Cancer (2015); with subsequent tracheostomy and stoma; s/p chemotherapy and radiation - Noted. 5. History of tobacco abuse; with subsequent COPD and chronic cough - Stable with no evidence of acute flare at this time. Continue prn nebulizers. 6. History of esophageal stenosis with chronic dysphagia; s/p EGD with dilatation - Noted. 7. Essential hypertension; on lisinopril - Hold lisinopril and give IV Hydralazine prn for systolic blood pressure > 160 mmHg. 07/19 blood pressure elevated than baseline 260/96. Lisinopril dose increased to 10 mg twice daily 8. Hypothyroidism; on levothyroxine - Give levothyroxine IV while patient is NPO. 9. History of benign liver mass; s/p excision (2015) - Noted. 10. History of TIA (2021) - Noted. 11. GERD; on omeprazole - Continue PPI IV. 12. OA - Stable. 13. DVT prophylaxis - SCD's only with impending ERCP and stent placement in the AM. Discharge medication reconciliation done. Discharge follow-up instructions completed. Discharge process discussed with the patient and all questions were answered to patient's satisfaction. Follow with PCP in 1 to 2 weeks Total time spent, exact 35 minutes on discharge meds reconciliation, examination, coordination of care with nurses and ancillary staff, review of imaging and blood test and discussion with the patient on follow-up instructions. Medications at Discharge Home Medications levothyroxine 75 mcg tablet 50 mcg PO MOTUWETHFR thyroid 11/30/21 omeprazole 40 mg capsule,delayed release 40 mg PO DAILY gerd 11/30/21 aspirin 81 mg chewable tablet 81 mg PO BREAKFAST blood thinner #30 tabs 12/01/21 cholecalciferol (vitamin D3) 125 mcg (5,000 unit) capsule 125 mcg PO DAILY supplement 12/17/23 lisinopril 10 mg tablet 10 mg PO DAILY bp 12/17/23 levothyroxine 50 mcg tablet 100 mcg PO SUSA thyroid 01/14/24 ciprofloxacin HCl 500 mg tablet (Cipro) 500 mg PO BID 5 days #10 tabs 07/21/24 Physical Exam Narrative Seen and examined. Jaundice improving. No abdominal pain No acute change since admission. Blood pressure controlled. Was seen by oncologist. Denies prior history of pancreatic disease or disorder or hepatobiliary disease. Complain of loss of appetite, fatigue and generalized weakness. She was admitted with jaundice. History of COPD status post total laryngectomy. Quit smoking in 2014. History of COPD Physical exam General: Alert, Oriented x3, Cooperative HEENT: Icterus present. Atraumatic, PERRLA, EOMI, Normocephalic Oral: No Gingival or Mucosal Lesions/ Ulcerations Neck: Tracheostomy with speaking valve. Status post total laryngectomy Chest wall/Lungs: Air entry diminished in bilateral lung bases. No crepitation/rhonchi Cardiovascular: Regular rate, Regular Rhythm, Normal S1, Normal S2, No M/G/R Abdomen: Bowel Sounds Present, Soft, Non Tender, Non-Distended. No hepatosplenomegaly. Scaphoid abdomen : No dysuria. No renal angle tenderness. No suprapubic tenderness. Extremities: No edema, Capillary Refill Less than 3 Seconds Skin: Yellow skin/jaundice Musculoskeletal: No Tenderness to Palpation of Joints or Extremities. ROM full. Neurological: Cranial nerves II-XII grossly intact, DTR 2+/4. No acute focal neurological deficit. Psych/Mental Status: Flat affect. Weight / BMI Weight Weight: 110 lb 7.225 oz Body Mass Index (BMI) 18.8 ABG / Lab / Microbiology Data 07/21/24 06:08 07/21/24 06:08 Laboratory: Laboratory Results - last 24 hr 07/17/24 20:49: CA 19-9 Antigen 30711 H, CA 19-9 Serial Monitor TNP 07/21/24 06:08: WBC 12.3 H, RBC 3.78 L, Hgb 9.5 L, Hct 30.9 L, MCV 81.7, MCH 25.1 L, MCHC 30.7 L, RDW Std Deviation 60.2 H, RDW Coeff of Cecelia 20.7 H, Plt Count 346, MPV 8.7, Immature Gran % (Auto) 1.200 H, Neut % (Auto) 90.1 H, Lymph % (Auto) 4.4 L, [place] % (Auto) 4.1, Eos % (Auto) 0.0, Baso % (Auto) 0.2, Absolute Neuts (auto) 11.1 H, Absolute Lymphs (auto) 0.54 L, Nucleated RBC % 0, Differential Comment SCANNED, Sodium 126 L, Potassium 4.2, Chloride 91 L, Carbon Dioxide 21.0, Anion Gap 15, BUN 16, Creatinine 1.15 H, Estim Creat Clear Calc 37.54, Est GFR (MDRD) Af Amer 60, Est GFR (MDRD) Non-Af 50 L, BUN/Creatinine Ratio 13.9, Glucose 113 H, Calcium 9.3, Total Bilirubin 7.50 H, Direct Bilirubin 6.14 H, AST 119 H, ALT 188 H, Alkaline Phosphatase 728 H, Total Protein 7.6, Albumin 2.8 L, Globulin 4.8 H Radiography Diagnostic Testing: Radiology Impression Endo Retro Cholangiopancreatogram 07/20/24 16:50 IMPRESSION: Intraprocedural exam. Please see the procedure note. Electronically Signed: Belen Dubois MD at 3:03 EST , D/C Instructions Discharge Diet: Light diet - advance as tolerated and Low fat / Low cholesterol Weight Bearing Status: Weight bearing as tolerated Call your doctor if you observe: Fever of 101 or Higher, Coldness, Increased Pain, Numbness or Tingling, Change in Color, Inability to urinate, Inability to have a bowel movement, Shortness of breath, Dizziness, Fainting spells, Swelling in the ankles, Chest pain, Prolonged hiccupping, Increased palpitations (irregular heartbeat) and Calf discomfort DC O2, CPAP, BIPAP Needs Home O2 Discharge instructions: No When: IN 2 WEEKS Meaningful Use Info Meaningful Use Meaningful Use Diagnoses (Choose all that apply): None applicable Ischemic Stroke Statin Dosing Therapy Reference: STATIN DOSE THERAPY REFERENCE: * Patients > 75 years receive moderate or high dose statin therapy. * Patients 75 years or YOUNGER should receive HIGH intensity statin dose unless contraindicated. You will be required to document reason for non-treatment if statin daily dose does not meet guidelines. HIGH DOSE STATIN THERAPY DAILY Atorvastatin > than or = to 40 mg Rosuvastatin > than or = to 20 mg Amlodipine + Atorvastatin > than or = to 2.5/40 mg Ezetimibe + Simvastatin 10/80 mg Simvastatin 80mg Discharge Plan Admission Admit Date/Time: 07/17/24 20:39 Primary Reason for Your Visit: Pancreatic mass, obstructive jaundice. History of laryngeal cancer status Attending Provider: Sean Zavala Primary Care Provider: Ashanti Lucio Consulting Providers: Jose Ramon Moctezuma; Jose Ramon Rogers; Dwaine Garibay; Rock Lomax; Juan Pablo Jaffe; Sami Savage; Chito Burr; Behzad Hill; Agus Carter; Mariah Sam MEDIATOR Instructions Additional Instructions / Restrictions: Advised to follow-up with oncologist in 1 week with ERCP brushing/biopsy patient has pancreatic mass with multiple retroperitoneal lymphadenopathy. Liver chemistry in 1 week and follow-up with PCP/oncologist. Discharge Orders/Prescriptions Prescriptions: New ciprofloxacin HCl [Cipro] 500 mg tablet 500 mg PO BID 5 Days Qty: 10 0RF Continued lisinopril 10 mg tablet 10 mg PO DAILY cholecalciferol (vitamin D3) 125 mcg (5,000 unit) capsule 125 mcg PO DAILY omeprazole 40 mg capsule,delayed release(DR/EC) 40 mg PO DAILY Patient Comments: TAKE 1 CAPSULE BY MOUTH ONCE DAILY levothyroxine 75 mcg tablet 50 mcg PO MOTUWETHFR aspirin 81 mg Tablet,Chewable 81 mg PO BREAKFAST Qty: 30 11RF levothyroxine 50 mcg tablet 100 mcg PO SUSA Referrals / Follow Up: Ashanti Lucio PA-C [Primary Care Provider] - Within 2 Weeks Marcelo Harden DO [Med Staff - Active Staff] - Within 2 Weeks (Follow-up for ERCP cytology) Disposition Disposition (needs filled in before D/C Order can be placed): Home, Self Care Charges/Coding Visit Charges Inpatient E&M: 64678 Disch Hosp >30min
--- NOTE | 2024-07-21 11:58 | CASEMGMT ---
RN CM into pt room, pt sitting up in bed with visitor at bedside. Pt denies any homegoing needs at this time or questions regarding dc.
[2024-07-21 14:00] VITALS: BP 141/100; PULSE 84; RESP 16; TEMP 36.8; O2SAT 98
== END 2024-07-21 16:00 | disposition home or self-care (01) | DRG 436 ==
LOC: ED 16:42 → MS3 21:26
PROVIDERS: Internal Medicine Gastroenterology; Admitting Provider Internal Medicine; Emergency Provider Emergency Medicine; PCP Family Medicine; Visit Provider Internal Medicine
PROC: 0FC98ZZ Extirpation of Matter from Common Bile Duct, Via Natural or Artificial Opening Endoscopic (ICD-10-PCS; CPT 43260; principal; 2024-07-20 12:40)
DX: C25.9 Malignant neoplasm of pancreas, unspecified (principal); E22.2 Syndrome of inappropriate secretion of antidiuretic hormone; C77.2 Secondary and unspecified malignant neoplasm of intra-abdominal lymph nodes; K80.51 Calculus of bile duct without cholangitis or cholecystitis with obstruction; Z93.0 Tracheostomy status; J43.2 Centrilobular emphysema; E03.9 Hypothyroidism, unspecified; I10 Essential (primary) hypertension; K21.9 Gastro-esophageal reflux disease without esophagitis; M19.90 Unspecified osteoarthritis, unspecified site; Z79.82 Long term (current) use of aspirin; Z79.890 Hormone replacement therapy; Z79.899 Other long term (current) drug therapy; Z87.891 Personal history of nicotine dependence; Z92.3 Personal history of irradiation; Z92.21 Personal history of antineoplastic chemotherapy; Z85.21 Personal history of malignant neoplasm of larynx
CPT/HCPCS: 36415; 74177; 74330; 76000; 76705; 80048; 80053; 80076; 80143; 82550; 83605; 83615; 83690; 83735; 84100; 84443; 85025; 85610; 86140; 86301; 88108; 88161; 88305; 88313; 93005; 99284; Q9967; A4216; C1726; J2405

== ENCOUNTER 2024-08-25 06:05 | Day surgery (SDC) | payer BC, MEDICARE, SELFPAY ==
--- NOTE | 2024-08-21 12:48 | PAT.ANESEVAL ---
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 When Was Last Pacemaker Check QUESTION #4 FULL TEXT: You/Your Family Experience fever (hyperthermia) with Anesthesia Last Oral Intake Last Oral intake: Last Oral Intake NPO since Meds taken in AM with sips of water? Meds patient instructed to take am of surgery PONV PONV - laboratory cureman: PONV - laboratory cureman Female Yes 08/21/24 12:16 HX of Motion Sickness Yes 08/21/24 12:16 HX of N/V After Surgery No 08/21/24 12:16 Non-Smoker Yes 08/21/24 12:16 Duration of Surgery greater No 08/21/24 12:16 than 60 minutes Number of Risk Factors 3 08/21/24 12:16 PONV Score Moderate Risk 08/21/24 12:16 Height & Weight Height & Weight: Anesthesia: Height & Weight Height 5 ft 4 in 08/17/24 13:15 Respiratory Assessment Respiratory Assessment - laboratory cureman: Respiratory Tract Infection Hx - laboratory cureman Hx Respiratory Tract Infection No 08/21/24 12:16 STOP Sleep Apnea STOP Sleep Apnea - laboratory cureman: STOP Sleep Apnea - laboratory cureman Hx Hypertension Yes: CONTROLLED WITH MED 08/21/24 12:16 Hx Sleep Apnea No 08/21/24 12:16 CPAP No 07/20/24 18:38 BIPAP No 01/20/24 09:05 Do you snore loudly (louder No 08/21/24 12:16 than talking or can be heard Do you often feel tired/ No 08/21/24 12:16 fatigued/ sleepy during daytime? Has anyone observed you stop No 08/21/24 12:16 breathing during sleep? STOP Results Negative 08/21/24 12:16 QUESTION #5 FULL TEXT : Do you snore loudly (louder than talking or can be heard through closed doors)? 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 Specify any problems Hx of Preganancy in last 3 No 08/21/24 12:16 Months Nurse Filling Out Transfusion DSCHRIBER 08/21/24 12:16 & Questions: Date: 08/21/24 08/21/24 12:16 Time: 12:18 08/21/24 12:16 Patient unable to answer at this time (ie. 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 Regional lymph node metastasis present Pancreas cancer Obstructive jaundice Mass of head of pancreas Wears glasses Post-menopausal Alcohol use Thyroid disease Difficulty swallowing Gastric reflux Former smoker Hoarseness History of echocardiogram Brain TIA Laryngeal cancer HTN (hypertension) COPD (chronic obstructive pulmonary disease) Home Medications ?Medication ?Instructions ?Recorded ?Last Taken ?Type levothyroxine 75 mcg tablet 50 mcg PO MOTUWETHFR thyroid 11/30/21 01/20/24 History omeprazole 40 mg capsule,delayed 40 mg PO DAILY gerd 11/30/21 Unknown History release aspirin 81 mg chewable tablet 81 mg PO BREAKFAST blood thinner 12/01/21 08/19/24 Rx #30 tabs cholecalciferol (vitamin D3) 125 125 mcg PO DAILY supplement 12/17/23 Unknown History mcg (5,000 unit) capsule lisinopril 10 mg tablet 10 mg PO BID bp 12/17/23 01/20/24 History levothyroxine 50 mcg tablet 100 mcg PO SUSA thyroid 01/14/24 Unknown History lidocaine-prilocaine 2.5 %-2.5 % 1 applic topical ONCE PRN port 08/20/24 Unknown Rx topical cream access 30 days #30 grams ondansetron 8 mg disintegrating 8 mg PO Q8H PRN nausea and 08/20/24 Unknown Rx tablet vomiting #30 tabs prochlorperazine maleate 10 mg 10 mg PO Q6H PRN nausea and 08/20/24 Unknown Rx tablet vomiting #30 tabs Allergy/AdvReac Type Severity Reaction Status Date / Time No Known Allergies Allergy Verified 08/21/24 12:12 Family History Sister Cancer ovarian Father Heart disease Grandfather Diabetes Other CVA (cerebral vascular accident) Surgical History (Updated 08/21/24 @ 12:26 by Nory Cameron) History of ERCP Hx of tracheostomy Hx of esophagogastroduodenoscopy Hx of colonoscopy History of surgery Laryngeal cancer Social History Smoking Status: Former smoker Tobacco: How many years used: 25 alcohol intake: current alcohol intake frequency: holidays/special occasions only Alcohol type: wine substance use type: does not use Audit: Pertinent Findings Pertinent Findings EKG Perinent findings: 07/17/2024 sinus rhythm marked arrhythmia left anterior fascicular block rate 95 bpm Echo (EF%) pertinent findings: 11/30/2021 normal size function EF 55% pulmonary artery pressure 33 Pulmonary function results/spirometer pertinent findings: Chest x-ray 11/30/2021 no acute finding Additional pertinent findings: Hemoglobin 7.4 08/17/2024 potassium 3.2 stable known history of laryngeal CA iron deficiency anemia pancreatic cancer Recommendation Anesthesia Recommendation Anesthesia recommendation: OPTIMIZED for anesthesia
[2024-08-25] VITALS (9 sets, daily range): BP systolic 107–159; BP diastolic 78–96; PULSE 72–83; RESP 16; TEMP 36.1–36.4; O2SAT 99–100; BMI 18.7
--- NOTE | 2024-08-25 07:15 | PRE.ANES_ITS ---
ASA Classification* ASA Classification ASA Classification: 4 Assessment & Plan Anesthesia* Anesthesia Assessment Anesthesia Assessment: Discussed sedation and/or anesthesia options, risks, benefits, and alternatives with patient/parents/legal guardian/POA. Questions invited. The patient/parents/legal guardian/POA seems to understand and agrees to proceed with anesthesia plan. Reviewed the physical assessment, medical history, allergy history and patient home medications list prior to surgery/procedure/anesthetic and documented any changes. Performed airway and anesthesia risk assessments. Anesthesia Type Anesthesia Type: MAC History Source History Obtained from:: Patient and Chart Anesthesia Focused Assessment* Temperature: 97 F Pulse Rate: 83 Blood Pressure: 107/78 Respiratory Rate: 16 Pulse Ox: 100 Oxygen Delivery Method: Room Air Airway Assessment Mouth opens: 1 cm Mallampati Score: II Teeth Condition: Intact Neck Range of motion (ROM): Full ROM Comment: trach Focused Labs Anesthesia Preop lab: CBC WBC 8.9 K/mm3 (4.4-11.0) 08/17/24 15:00 08/17/24 RBC 2.46 M/mm3 (4.2-5.4) L 08/17/24 15:00 08/17/24 Hgb 7.4 g/dL (12.0-15.0) L 08/17/24 15:00 08/17/24 Hct 22.9 % (37-47) L 08/17/24 15:00 08/17/24 Plt Count 280 K/mm3 (150-450) 08/17/24 15:00 08/17/24 CHEMISTRY Potassium 3.2 mmol/L (3.5-5.1) L 08/17/24 15:00 08/17/24 Sodium 132 mmol/L (136-145) L 08/17/24 15:00 08/17/24 Magnesium 1.7 mg/dL (1.6-2.6) 08/17/24 15:00 08/17/24 Phosphorus 2.5 mg/dL (2.5-4.9) 08/17/24 15:00 08/17/24 BUN 14 mg/dL (7-18) 08/17/24 15:00 08/17/24 Creatinine 1.00 mg/dL (0.55-1.02) 08/17/24 15:00 08/17/24 Glucose 93 mg/dL (74-106) 08/17/24 15:00 08/17/24 POC Glucose 98 mg/dL (74-106) 11/30/21 19:45 11/30/21 TSH 6.330 uIU/mL (0.358-3.740) H 07/18/24 07:20 COAG PT 12.5 SECONDS (11.7-14.9) 07/17/24 16:39 Pre-Assessment Diagnosis/Proposed Procedure Planned Operative Procedure(s): INSERTION VASCULAR PORT RIGHT POSS LEFT Anesthesia History 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 When Was Last Pacemaker Check QUESTION #4 FULL TEXT: You/Your Family Experience fever (hyperthermia) with Anesthesia Any additional information?: No Last Oral Intake Last Oral intake: Last Oral Intake NPO since 03:30 08/25/24 06:29 Meds taken in AM with sips of Yes 08/25/24 06:29 water? 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 Female Yes 08/21/24 12:16 HX of Motion Sickness Yes 08/21/24 12:16 HX of N/V After Surgery No 08/21/24 12:16 Non-Smoker Yes 08/21/24 12:16 Duration of Surgery greater No 08/21/24 12:16 than 60 minutes Number of Risk Factors 3 08/21/24 12:16 PONV Score Moderate Risk 08/21/24 12:16 Any additional information?: No Height & Weight Height & Weight: Anesthesia: Height & Weight Height 5 ft 4 in 08/25/24 06:29 Weight: 49.442 kg 08/25/24 06:29 Body Mass Index (BMI) 18.7 08/25/24 06:29 Respiratory Assessment Respiratory Assessment - highway painter: Respiratory Tract Infection Hx - highway painter Hx Respiratory Tract Infection No 08/21/24 12:16 Any additional information?: No STOP Sleep Apnea STOP Sleep Apnea - highway painter: STOP Sleep Apnea - highway painter Hx Hypertension Yes: CONTROLLED WITH MED 08/21/24 12:16 Hx Sleep Apnea No 08/21/24 12:16 CPAP No 07/20/24 18:38 BIPAP No 01/20/24 09:05 Do you snore loudly (louder No 08/21/24 12:16 than talking or can be heard Do you often feel tired/ No 08/21/24 12:16 fatigued/ sleepy during daytime? Has anyone observed you stop No 08/21/24 12:16 breathing during sleep? STOP Results Negative 08/21/24 12:16 QUESTION #5 FULL TEXT : Do you snore loudly (louder than talking or can be heard through closed doors)? 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 Specify any problems Hx of Preganancy in last 3 No 08/21/24 12:16 Months Nurse Filling Out Transfusion DSCHRIBER 08/21/24 12:16 & Questions: Date: 08/21/24 08/21/24 12:16 Time: 12:18 01/31/25 12:16 Patient unable to answer at this time (ie. confused, unrespo Any additional information?: No /Reproduction History /Reproductive History - highway painter: /Reproductive Hx- highway painter Hx Now No 08/21/24 12:16 Gestational Age (in weeks): EDC: Hx Hx Para Hx Section SAB No 08/21/24 12:16 Any additional information?: No Active Medications Active Medications: Current Medications Generic Name Dose Route Start Last Admin Trade Name Freq PRN Reason Stop Dose Admin Cefazolin Sodium 2 gm/ N/A 20 mls @ 400 mls/hr 08/25/24 07:30 IV 08/25/24 07:32 PREOP ONE [facility] Medical History Anemia History of Holter monitoring Iron deficiency anemia Encounter for education CINV (chemotherapy-induced nausea and vomiting) 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 Regional lymph node metastasis present Pancreas cancer Obstructive jaundice Mass of head of pancreas Wears glasses Post-menopausal Alcohol use Thyroid disease Difficulty swallowing Gastric reflux Former smoker Hoarseness History of echocardiogram Brain TIA Laryngeal cancer HTN (hypertension) COPD (chronic obstructive pulmonary disease) Home Medications ?Medication ?Instructions ?Recorded ?Last Taken ?Type levothyroxine 75 mcg tablet 50 mcg PO MOTUWETHFR thyro id 11/30/21 08/25/24 History omeprazole 40 mg capsule,delayed 40 mg PO DAILY gerd 0 11/30/21 08/25/24 History release aspirin 81 mg chewable tablet 81 mg PO BREAKFAST blood thinner 12/01/21 08/19/24 Rx #30 tabs cholecalciferol (vitamin D3) 125 125 mcg PO DAILY supp lement 12/17/23 Unknown History mcg (5,000 unit) capsule lisinopril 10 mg tablet 10 mg PO BID bp 12/17/2310/13 History levothyroxine 50 mcg tablet 100 mcg PO SUSA thyroid Unknown History lidocaine-prilocaine 2.5 %-2.5 % 1 applic topical ONCE PRN port 08/20/24 Unknown Rx topical cream access 30 days #30 grams ondansetron 8 mg disintegrating 8 mg PO Q8H PRN nausea and 08/20/24 Unknown Rx tablet vomiting #30 tabs prochlorperazine maleate 10 mg 10 mg PO Q6H PRN nausea and 08/20/24 Unknown Rx tablet vomiting #30 tabs Allergy/AdvReac Type Severity Reaction Status Date / Time No Known Allergies Allergy Verified 08/25/24 06:27 Family History Sister Cancer ovarian Father Heart disease Grandfather Diabetes Other CVA (cerebral vascular accident) Surgical History History of ERCP Hx of tracheostomy Hx of esophagogastroduodenoscopy Hx of colonoscopy History of surgery Laryngeal cancer Social History Smoking Status: Former smoker Tobacco: How many years used: 25 alcohol intake: current alcohol intake frequency: holidays/special occasions only Alcohol type: wine substance use type: does not use Review of Systems (Anesthesia) ROS Narrative System reviewed and no additional complaints, except as documented. Physical Exam Const alert and oriented x3 Orientation / Consciousness: awake
--- NOTE | 2024-08-25 07:19 | PCM.HP.BLA ---
History and Physical Date of Admission: 08/25/24 Date of Service: 08/19/24 MR#: [id number] Acct: [id number] Name: LYN LOPEZ Rep #: [id number] : 1955 Provider: Dr. Joyce Krueger MD Age/Sex: 68/F Location: [facility] Status: Signed Intake Vital Signs 08/17/2512:15 08/19/2508:00 Height 5 ft 4 in 5 ft 4 in Weight: 109 lb 8 oz BMI 18.8 BP 126/86 H Blood Pressure Location Rt brachial Position Sitting Respiration 17 Pulse 89 Pulse Source Monitor Pulse Oximetry (%) 100 Oxygen Delivery Method room air Intake Visit Reasons: PORT PLACEMENT Chief Complaint: port placement Is patient in pain?: No Allergies No Known Allergies Allergy (Verified 08/20/24 09:42) Medications ?Medication ?Instructions ?Recorded ?Confirmed ?Type levothyroxine 75 mcg tablet 50 mcg PO MOTUWETHFR thyroid 11/30/21 08/20/24 History omeprazole 40 mg capsule,delayed 40 mg PO DAILY gerd 11/30/21 08/20/24 History release aspirin 81 mg chewable tablet 81 mg PO BREAKFAST blood thinner 12/01/21 08/20/24 Rx #30 tabs cholecalciferol (vitamin D3) 125 125 mcg PO DAILY supplement 12/17/23 08/20/24 History mcg (5,000 unit) capsule lisinopril 10 mg tablet 10 mg PO DAILY bp 12/17/23 08/20/24 History levothyroxine 50 mcg tablet 100 mcg PO SUSA thyroid 01/14/24 08/20/24 History Have you fallen in the past year?: No PFSH Medical History 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 Regional lymph node metastasis present Pancreas cancer Obstructive jaundice Mass of head of pancreas Wears glasses Post-menopausal Alcohol use Thyroid disease Difficulty swallowing Gastric reflux Former smoker Hoarseness History of echocardiogram Brain TIA Laryngeal cancer HTN (hypertension) COPD (chronic obstructive pulmonary disease) Surgical History Hx of tracheostomy Hx of esophagogastroduodenoscopy Hx of colonoscopy History of surgery Laryngeal cancer Family History Sister Cancer ovarianFather Heart diseaseGrandfather DiabetesOther CVA (cerebral vascular accident) Social History Smoking Status: Former smoker Tobacco: How many years used: 25 alcohol intake: current alcohol intake frequency: holidays/special occasions only Alcohol type: wine substance use type: does not use HPI HPI HPI: 68-year-old female presents for port placement due to metastatic adenocarcinoma bilateral lungs. Patient previously did have a Port-A-Cath in her arm when she was getting her treatment for laryngeal cancer. Patient does have a speaking valve in her inferior neck. ROS General General: Yes weight change; No appetite, fatigue, colon cancer, breast cancer or weakness HEENT HEENT: No difficulty swallowing, eye injury, eye surgery, swollen glands or hoarseness Endo Endocrine: Yes thyroid disease; No diabetes mellitus, thyroid cancer, Hair loss, heat intolerance or cold intolerance Skin Skin: No rash or changing moles Musc Musculoskeletal: No back problems, arthritis, rheumatoid arthritis, gout or joint pain Cardio Cardiovascular: No murmur, pacemaker, heart disease, atrial fibrillation, high blood pressure, heart attack, heart stent, palpitations, shortness of breat with exertion or chest pain Psych Psychiatric: No depression, anxiety or hearing voices Resp Respiratory: No shortness of breath, No sleep apnea, No cough, No COPD, No asthma, No emphysema and No wheezing Gastro Gastrointestinal: No abdominal pain, No nausea or vomiting, No diarrhea, No constipation, No blood in stool, No acid reflux, No hemorrhoids, No ulcers, No gallbladder problem and No black,tarry stools [place] Hematologic: No blood thinners, No blood disorders, No bleeding, No anemia and No blood clots Neuro Neurologic: No system reviewed and no additional complaints, except as documented, No as per HPI, No abnormal gait, No abnormal hearing, No abnormal movements, No abnormal speech, No behavioral changes, No burning sensations, No confusion, No convulsions, No disequilibrium, No dizziness, No localized weakness, No frequent falls, No headache(s), No lack of coordination, No loss of vision, No memory loss, No numbness, No other visual disturbances, No radicular pain, No restless legs, No sensory deficit, No syncope, No tingling, No tremor(s), No weakness and No other Exam Const General: cooperative, healthy appearing, comfortable and no acute distress Nutritional Appearance: underweight HENMT Head: normocephalic and atraumatic Neck Other: Speaking valve in place Resp Effort & Inspection: normal respiratory effort Cardio Rate: regular rate GI Inspection: non-distended Palpation: soft, no hernias and nontender Skin General: no rashes or lesions noted Neuro General: CN's II-XI intact bilaterally Extrem General: normal to inspection Psych Mental Status: mental status grossly normal Attitude: cooperative Assessment and Plan Assessment and Plan (1) 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 I have discussed above with the patient- Port-a-Cath placement. Right IJ possible left Patient has been counseled as to the risks/benefits of the procedure. I have explained the risks of the surgery, including but not limited to: infection, bleeding, injury to any blood vessels/nerves, injury to lungs (such as pneumothorax or hemothorax and need for chest tube), not having any access, nonfunctioning of port due to thrombosis, infection of port, etc. the patient understands and agrees to proceed. I have answered all the patient's questions to the patient?s satisfaction and the patient has no further questions. Joyce Krueger M.D. Pager: [phone] [facility] [address] [place] [address], [address] [place] [address] Office: 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
[2024-08-25] MEDS: Cefazolin 2 GM in Syringe IV (07:42)
[2024-08-25] MEDS: Bupivacaine Mpf 0.5% 30 ML VIAL (07:46)
[2024-08-25] MEDS: Lidocaine 1% /Epi 1:100 (20ml) 20 ML Vial (07:46)
--- NOTE | 2024-08-25 08:20 | RAD_ITS ---
EXAM: CHEST 1 VIEW (PORTABLE) CLINICAL HISTORY: Port placement. COMPARISON: Comparison is made with prior study dated November 30, 2021. TECHNIQUE: Portable chest radiograph. FINDINGS: A right-sided port a catheter has been placed with the tip at the junction of the superior vena cava and right atrium. A tracheostomy is in-situ. EKG electrodes are seen. Hyperinflation. The lungs are clear. Degenerative changes of the thoracic vertebrae with minimal levoscoliosis. RAD/Chest 1 View (Portable) IMPRESSION: The tip of the right-sided port a catheter is at the junction of the superior v armando cava and right atrium. Tracheostomy tube is in-situ and unchanged. Hyperinflation. Lungs are clear. Reading Location: [facility]
--- NOTE | 2024-08-25 08:20 | PCM.OPRPT ---
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, bilateral adenocarcinoma of the lung Post-Operative Diagnosis: Same Surgery/Procedure Performed: Placement of right IJ Port-A-Cath Use of ultrasound Use of fluoroscopy head of acquisitions: No Type of Anesthesia: Local MAC RN Documented Start/Stop Times: Operation Date: 08/25/24 07:30 Case Time Into Pre-Op 08/25/24 06:08 Out of Pre-Op 08/25/24 07:23 Anesthesia Start 08/25/24 07:28 Into Room 08/25/24 07:28 Procedure Start 08/25/24 07:45 Procedure End 08/25/24 08:17 Anesthesia End 08/25/24 08:20 Out of Room 08/25/24 08:20 Into Recovery 08/25/24 08:22 Out of Recovery 08/25/24 08:41 Into Phase II Recovery 08/25/24 08:42 Out of Phase II 08/25/24 09:19 Procedure Start Time: 07:45 Procedure Stop Time: 08:17 Select all DRAINS/GRAFTS/IMPLANTS that apply: Implanted device Implanted device details: Catapult PowerPort isp M.R.I. 6Fr Lot Lot [id number] ref [id number] Special Medications: Ancef 2 g IV x 1 Estimated Blood Loss: < 10 cc Specimen collected: No Description of surgery: After informed consent was given, the patient was brought to the operating room and placed in the supine position. Appropriate time out protocol was followed. Patient was then given IV conscious sedation for anesthesia. The patient's right upper chest and neck were then prepped with a surgical skin preparation and sterile surgical drapes were placed after patient speaking valve was protected using portion of 1000 drape. After proper landmarks were ascertained, the skin at the upper right chest area was then infiltrated with 1:1 mixture of 1% lidocaine with epinephrine and 0.5% marcaine. A needle trocar was then inserted into the right internal jugular vein with ultrasound guidance-multiple vessels were viewed with u/s and the right IJ was chosen, left IJ was much smaller-- and there was good aspiration of venous blood. A wire was then threaded into the needle trocar and this was visualized under fluoroscopy to ensure that the wire was in the superior vena cava. Once this was done, then the needle trocar was removed. A small skin leonard was made with an 11 blade knife at the wire entrance site. The dilator with the introducer sheath attached was then placed over the wire into the right internal jugular vein via the Seldinger technique and this was visualized under fluoroscopy. The dilator and sheath were in proper position as visualized by fluoroscopy. A subcutaneous pocket was then created caudad to the catheter insertion site. A transverse skin incision was made after the skin and subcutaneous tissues were infiltrated with local anesthetic. Blunt dissection was then used to create a space large enough for placement of the subcutaneous port. The catheter was then tunneled into the subcutaneous pocket. The wire and dilator were then removed. The catheter was then threaded into the introducer sheath and was positioned with its tip at the junction of the superior vena cava and the right atrium as visualized under fluoroscopy. The excess catheter was transected. The catheter was then attached to the subcutaneous port using manufacturers guidelines. The catheter was flushed with a heparin saline mixture prior to placement. Hemostasis was carefully controlled with electrocautery. The port was sutured to the subcutaneous fascia using 2-0 Vicryl suture at two sites. The port was then placed in the subcutaneous pocket. The incision were reapproximated with interrupted subdermal 3-0 vicryl sutures. The skin was reapproximated with 3-0 nylon suture in a interrupted fashion. Steristrips were used for reinforcement of the skin closure at IJ insertion site and a sterile opsite dressings were applied. The patient tolerated the procedure well. Surgical Findings: See operative report Complications Complications: No
--- NOTE | 2024-08-25 08:22 | PCM.POST.ANE ---
Anesthesia: Postop Eval I Current Vital Signs Temperature: 97.1 F Pulse Rate: 81 Blood Pressure: 155/96 Respiratory Rate: 16 Pulse Ox: 100 Oxygen Delivery Method: Room Air Assessment Airway patent: Yes Spontaneous unlabored respirations: Yes Mental status: Calm nausea: No Vomiting: No Anesthesia Complication: No Fluid Hydration Crystalloid volume administer (ml): 10 Total IV fluid infused: 10 Progress Note Anesthesia document: Postop Eval 1 completed: Yes
--- NOTE | 2024-08-25 08:23 | EX.PCM.DISCH ---
Discharge Instructions Procedure Port-A-Cath Diet Discharge Diet: Light diet - advance as tolerated Activity May shower in (days): 5 (Keep port site clean and dry x5 days. Neck incision okay to get wet after 1 day. Okay to lower shower and upper sponge bath. OR okay to taper off port site with a Ziploc bag to shower) Lifting Restrictions: No lifting > 15 pounds for 3 days with the arm on the side of the port Dressing / Incision Call your doctor if your incision/area has: Continuous Slow Oozing, Sudden Increased Bleeding, Increased Pain/ Swelling, Increased Redness, Foul Smelling Discharge and Swelling at the incision site Call your doctor if you observe: Fever of 101 or Higher Change Dressing in: 2 days (2-3 days- port site; ok to remove neck opsite in 1 day) Follow Up Care Please Follow Up With: Joyce Krueger MD When: In 10 days for permanent suture removal?call office for appointment Test Results: Test results from this visit will be discussed in further detail at your follow-up appointment, if applicable. Discharge Plan Admission Attending Provider: Joyce Krueger Primary Care Provider: Ashanti Lucio Instructions Print Language: Irish Discharge Orders/Prescriptions Prescriptions: Continued lisinopril 10 mg tablet 10 mg PO BID cholecalciferol (vitamin D3) 125 mcg (5,000 unit) capsule 125 mcg PO DAILY prochlorperazine maleate 10 mg tablet 10 mg PO Q6H PRN (Reason: nausea and vomiting) Qty: 30 2RF ondansetron 8 mg tablet,disintegrating 8 mg PO Q8H PRN (Reason: nausea and vomiting) Qty: 30 2RF lidocaine-prilocaine 2.5-2.5 % cream 1 applic topical ONCE PRN (Reason: port access) 30 Days Qty: 30 2RF omeprazole 40 mg capsule,delayed release(DR/EC) 40 mg PO DAILY Patient Comments: TAKE 1 CAPSULE BY MOUTH ONCE DAILY levothyroxine 75 mcg tablet 50 mcg PO MOTUWETHFR levothyroxine 50 mcg tablet 100 mcg PO SUSA Held aspirin 81 mg Tablet,Chewable 81 mg PO BREAKFAST Qty: 30 11RF Hold Instructions: Resume on 08/26/24. Referrals / Follow Up: Ashanti Lucio PA-C [Primary Care Provider] - Disposition Disposition (needs filled in before D/C Order can be placed): Home, Self Care
--- NOTE | 2024-08-25 18:22 | PCM.POSTANE2 ---
Anesthesia Postop Eval I Sum Postop Eval Completion status Anesthesia document: Postop Eval 1 completed: Yes Anesthesia Postop Eval I Summary Anesthesia Postop Eval I Summary: Anesthesia Postop Eval I: Assessment Summary Airway patent Yes 08/25/24 18:22 Spontaneous unlabored Yes 08/25/24 18:22 respirations Mental status Calm 08/25/24 18:22 nausea No 08/25/24 18:22 Vomiting No 08/25/24 18:22 Anesthesia Postop Eval I: Fluid Summary Crystalloid volume administer 10 08/25/24 18:22 (ml) Colloids volume administered ( ml) Blood Product volume administered (ml) Total IV fluid infused 10 08/25/24 18:22 Anesthesia Postop Eval I: Summary Notes Anesthesia Complication No 08/25/24 18:22 Anesthesia Complication Comment: Post-operative progress note Anesthesia: Postop Eval II Evaluation Mental status: Awake and Calm Pain Level: 1 nausea: No Vomiting: No Complications Anesthesia Complication: No
== END 2024-08-25 09:19 | disposition home or self-care (01) ==
LOC: SDC 06:06 → AC 06:07
PROVIDERS: PCP Family Medicine; Referring Provider Surgery; Visit Provider Surgery
PROC: (CPT 36561; principal; 2024-08-25 07:15)
DX: Z45.2 Encounter for adjustment and management of vascular access device (principal); C78.02 Secondary malignant neoplasm of left lung; C78.01 Secondary malignant neoplasm of right lung; J44.9 Chronic obstructive pulmonary disease, unspecified; K21.9 Gastro-esophageal reflux disease without esophagitis; Z87.891 Personal history of nicotine dependence; I10 Essential (primary) hypertension; Z79.899 Other long term (current) drug therapy; E07.9 Disorder of thyroid, unspecified; Z79.890 Hormone replacement therapy
CPT/HCPCS: 36561; 00532; 71045; 77001; A4216; J2405

== ENCOUNTER → 2024-08-26 | Outpatient (CLI) | payer BC, MEDICARE, SELFPAY ==
--- NOTE | 2024-08-26 09:04 | NM_ITS ---
PROCEDURE: Whole body bone scintigraphy REASON FOR EXAM: 68 year old female with history of pancreatic carcinoma. TECHNIQUE: Whole-body bone scan with anterior and posterior views RADIOPHARMACEUTICAL: 27.5 mCi Technetium-99m MDP IV COMPARISON: CORRELATION WITH EXISTING RELEVANT IMAGING STUDIES (i.e. x-ray, MRI, CT, etc.): None available FINDINGS: 1. There is increased radiopharmaceutical concentration defined in the dorsal medial compartment of the left ankle, a medial tibial compartment of the right knee, the upper cervical spine posteriorly on the right, the midcervical spine posteriorly on the left and acromioclavicular apartment of the left shoulder. The remaining skeletal structures are scintigraphically unremarkable with normal appearing renal images identified bilaterally. NM/Bone Scan Whole Body IMPRESSION: 1. There is no scintigraphic evidence of skeletal metastatic disease. 2. Degenerative arthritis is defined in the cervical spine, left ankle, the ri ght knee, the acromioclavicular compartment of the left shoulder. Reading Location: [id number]
--- NOTE | 2024-08-26 09:15 | US_ITS ---
EXAM: US Abdomen Limited, Right Upper Quadrant CLINICAL INDICATION: TECHNIQUE: Real-time ultrasound of the right upper quadrant with image documentation. COMPARISON: No relevant prior studies available. FINDINGS: LIVER: Liver is heterogeneous in echotexture. Liver measures up to 18.3 cm. No intrahepatic bile duct dilation. GALLBLADDER: Gallbladder sludge. Negative Gage's sign was reported by the transfer controller. No gallstones. COMMON BILE DUCT: Unremarkable as visualized. No stones. No dilation. Common bile duct measures 0.32 cm in diameter. PANCREAS: Dilated pancreatic duct measuring up to 8.7 mm. Hypoechoic lesion measuring 6.7 x 3.6 x 4.7 cm in the pancreas with possible stent traversing through the pancreatic head. RIGHT KIDNEY: Unremarkable. No stones. No hydronephrosis. The right kidney measures 9.2 x 4.2 x 3.8 cm. US/Abdomen Limited IMPRESSION: Dilated pancreatic duct measuring up to 8.7 mm. Hypoechoic lesion measuring 6. 7 x 3.6 x 4.7 cm in the pancreas with possible stent traversing through the pancreatic head. Probable gallbladder sludge. Reading [facility]
== END | disposition home or self-care (01) ==
LOC: NM 08:57
PROVIDERS: PCP Family Medicine; Referring Provider Internal Medicine Hematology & Oncology; Visit Provider Internal Medicine Hematology & Oncology
DX: C25.9 Malignant neoplasm of pancreas, unspecified (principal); C78.7 Secondary malignant neoplasm of liver and intrahepatic bile duct; R17 Unspecified jaundice
CPT/HCPCS: 76705; 78306; A9503

== ENCOUNTER 2024-08-27 08:04 | Outpatient (CLI) | payer BC, MEDICARE, SELFPAY ==
[2024-08-27] VITALS (12 sets, daily range): BP systolic 139–168; BP diastolic 71–97; PULSE 79–92; RESP 14–18; TEMP 36; O2SAT 98–100; BMI 18.7
--- NOTE | 2024-08-27 | IMM_PTH ---
PATIENT: LYN LOPEZ LOC: CT U#:[id number] AGE/SX: 68/F ROOM: RE08/27/[address]: Dr. Juan Pablo Jaffe MD : 1955 BED: DIS: 08/27/2024 SPEC #: [id number] RECD: 08/28/24 11:46 STATUS: BRAULIO REQ #: [id number] JAYE: 08/27/24 00:[address]: Juan Pablo Jaffe DEPT: IMMUNOHISTOCHEMISTRY RECD BY: Angelo Dale ENTERED: 08/28/24 11:48 SP TYPE: IMMUNO OTHR DR: Ashanti Lucio PA-C Tissues: Retroperitoneum, NOS Procedures: RCC (add) NAPSIN A (add) CK20 (add) CK5-6 (add) CK7 (add) CK8 (add) HEP PAR (add) KI-67 (add) P53 (add) IA (add) TTF1 (add) Pankeratin (add) P40 (add) ER (initial) PHYSICIAN & [address] [address] SPECIMEN INFORMATION: Tissue Source: Retroperitoneal lymph node Clinical Info: Pancreatic cancer Specimen Number: [id number] CPT code: 50650,[id number] METHODOLOGY: Deparaffinized sections of prefer/formalin-fixed tissue or PAP/DQ stained slides are incubated with monoclonal/polyclonal antibodies/oligonucleotide probes. Localization is made via biotin free immunoperoxidase method. Appropriate controls are performed and reacted as expected. Results on target cell population are indicated in the following table: RESULTS: ANTIBODY / CLONE RESULT ER (6F11) negative IA (1E2) negative AE1-3 (AE1/AE3/PCK26) positive CK7 (OV-TL12/30) positive CK8 (70pvklC73) positive CK20 (KS20.8) negative TTF-1 (8G7G3/1) negative Napsin A (Rabbit Polyclonal) negative HepPar (OCh1E5) negative RCC (PN-15) negative CK5-6 (D5 & 1684) positive P40 (BC28) positive P53 (DO-7) positive (missense mutation pattern) Ki-67 (30-9) positive, high These tests were developed and their performance characteristics determined by [facility]. They may not have been cleared or approved by the U.S. Food and Drug Administration. The FDA has determined that such clearance or approval is not necessary. The above immunohistochemical/dualISH markers are ordered and reviewed by the Pathologist. INTERPRETATION: Retroperitoneal lymph node, CT guided core biopsy: Poorly differentiated metastatic adenocarcinoma with focal squamous differentiation. See comment. COMMENT: IHC profile is compatible with clinical impression of pancreatic primary. mr 08/31/2024
[2024-08-27 08:26] LABS: Absolute Lymphocyte Count 0.94 X10^3/uL (0.83-4.51); Basophil# 0.06 X10^3/uL; Basophil% 0.8 % (0-1); Eosinophil# 0.07 X10^3/uL; Eosinophils% 0.9 % (0-5); Hemoglobin 6.9 g/dL (12.0-15.0); Lymphocyte # 0.94 X10^3/ul (0.83-4.51); Lymphocyte % 11.9 % (19-41); Mean Corp Hgb Conc 31.4 g/dL (32-36); Mean Corpuscular Hgb 29.2 pg (27.0-32.0); Mean Corpuscular Volume 93.2 fL (81-99); Mean Platelet Vol. 8.8 fl (6.2-12.0); Monocyte# 0.69 X10^3/uL; Monocyte% 8.7 % (0-10); NRBC Flagged by Analyzer 0 % (0-5); Neutrophil # 6.02 X10^3/uL (2.7-7.7); Neutrophil % 76.2 % (47-70); POSITIVE MORPHOLOGY YES; Platelet Count 304 K/mm3 (150-450); RBC Distribution Width CV 19.7 % (11.6-14.6); Red Blood Count 2.36 M/mm3 (4.2-5.4); White Blood Count 7.9 K/mm3 (4.4-11.0)
[2024-08-27 08:32] LABS: Differential Indicated SCAN CRITERIA MET
[2024-08-27 08:54] LABS: Differential Comment SCANNED
[2024-08-27 08:55] LABS: Anisocytosis 2+
[2024-08-27 08:57] LABS: International Normalized Ratio 1.1; Partial Thromboplast Time 31.7 Seconds (24.1-36.2); Prothrombin Time (Protime)PT. 14.8 SECONDS (11.7-14.9)
[2024-08-27] MEDS: Midazolam 2 MG/2 ML Syringe IV (09:15)
[2024-08-27] MEDS: fentaNYL 100 MCG/2 ML Ampul IV (09:17)
[2024-08-27] MEDS: Lidocaine 2% (20 ml mdv) 20 ML Vial INFILT (09:28)
--- NOTE | 2024-08-27 09:35 | ASPIGT_PTH ---
PATIENT: LYN LOPEZ LOC: CT U#:[id number] AGE/SX: 68/F ROOM: RE08/27/[address]: Dr. Juan Pablo Jaffe MD : 1955 BED: DIS: 08/27/2024 SPEC #: [id number] RECD: 08/27/24 10:00 STATUS: BRAULIO RELuz #: [id number] JAYE: 08/27/24 09:[address]: Juan Pablo Jaffe DEPT: SURGICAL PATHOLOGY RECD BY: Pauline Gandhi ENTERED: 08/27/24 11:26 SP TYPE: ASP RAD OTHR DR: Ashanti Lucio PA-C Tissues: Retroperitoneum, NOS Procedures: FNA Specimen Adequacy Special Stain Group II Surgery Specimen Level IV Imprint (control) HEADER OPERATION: CT guided retroperitoneal lymph node PRE-OP DIAGNOSIS: Pancreatic cancer TISSUE SUBMITTED: 18 gauge x 6 cores MICROSCOPIC DIAGNOSIS Retroperitoneal lymph node, CT guided core biopsy: Poorly differentiated metastatic adenocarcinoma with focal squamous differentiation. See note. NOTE: Immunohistochemistry ([id number]) supports the above diagnosis and compatible with clinical impression of pancreatic primary See comment. 08/28/2024 COMMENT The specimen is evaluated at the time of biopsy by Dr. Butt. Immediate Evaluation = Malignant cells present derived from non-small cell carcinoma. Results are reported to Shantelle Becky at 9:48am on 08/27/2024. Please make reference to previous specimen [id number] pancreatic and duct brushing, brush head fluid and pancreatic duct stricture brushings with diagnosis of a few clusters of atypical cells noted; and pancreatic, head, mass, fine needle biopsy from [facility] [id number], with diagnosis of infiltrating moderately to poorly differentiated adenocarcinoma. Immunohistochemistry ([id number]) supports the above diagnosis. Molecular studies on the tumor can be performed, if clinically indicated, please notify the laboratory if they are needed. MICROSCOPIC DESCRIPTION Slides are reviewed. GROSS DESCRIPTION Received is one container labeled with the patient's name and not further designated. The specimen consists of multiple irregular fragments of rivera soft tissue that in aggregate measure 1 x 0.1 x 0.1 cm. The specimen is totally submitted in one cassette. Two touch imprints are prepared at the time of core biopsy. A core is saved for flow cytometry and is submitted in cassette 2. SJ 08/27/2024 TC:0 CPT:42807,06683 ADDENDUM ADDENDUM ADDENDUM ADDENDUM ADDENDUM ADDENDUM ADDENDUM ADDENDUM ADDENDUM ADDENDUM ADDENDUM ADDENDUM ADDENDUM ADDENDUM ADDENDUM ADDENDUM ADDENDUM ADDENDUM ADDENDUM ADDENDUM ADDENDUM ADDENDUM ADDENDUM ADDENDUM ADDENDUM ADDENDUM 09/07/2024 13:49 ADDENDUM 09/07/2024 13:49 ADDENDUM 09/07/2024 13:49 ADDENDUM 09/07/2024 13:49 ADDENDUM 09/07/2024 13:49 [facility]ATIC AND BILIARY TRACT SEQUENCING REPORT FROM [facility] RESULT SUMMARY: Abnormal TUMOR TYPE: Adenocarcinoma CLINICAL INFORMATION: Retroperitoneal lymph node CT guided core biopsy showed poorly differentiated metastatic adenocarcinoma with focal squamous differentiation (Testing performed on [id number]). HISTOPATHOLOGIC REVIEW: Tumor is diffusely present and comprises >10% of nuclei in the sample. DETECTED GENOMIC ALTERATIONS: Tier II: Variants of potential clinical significance KRAS p. ([id number]) TP53 p. ([id number]) Tier III: Variants of unknown clinical significance LSB5V3L p. ([id number]) IMMUNOTHERAPY BIOMARKERS: TUMOR MUTATION BURDEN: LOW (3.1 MUTATIONS / MB) MICROSATELLITE INSTABILITY: MSI NEGATIVE (1.63%) Please see complete report in e-chart or EMR
--- NOTE | 2024-08-27 09:48 | OP.PCM_ITS ---
Problems Associated Problem List Diagnoses (1) Lymphadenopathy: (2) Regional lymph node metastasis present: Multi Select Codes Radiology Radiology CT Procedures: 90490 Biopsy Lymph Node/gland/etc and 20291-05 CT guidance parenchymal tissue Operative Report (Standard) Operative Information Date of Procedure: 08/27/24 Pre-Operative Diagnosis: Retroperitoneal lymphadenopathy Post-Operative Diagnosis: Retroperitoneal lymphadenopathy Surgery/Procedure Performed: CT guided left retroperitoneal lymph node biopsy portfolio assistant: No Type of Anesthesia: IV Sedation Procedure Start Time: 09:15 Procedure Stop Time: 09:38 Select all DRAINS/GRAFTS/IMPLANTS that apply: None Estimated Blood Loss: scant Specimen collected: Yes Description of specimen(s) removed: 6 cores Description of surgery: PROCEDURE: CT GUIDED CORE LYMPH NODE BIOPSY ORDERING PROVIDER: Dr. Jaffe INDICATION: Female, 68 years old. Left retroperitoneal lymph node enlarged. PROVIDER: AMANUEL Suarez CONSENT: Written informed consent was obtained having explained the risks, benefits and alternatives in detail with the patient who accepted the risks and agreed to proceed. Laboratory review and clinical assessment was performed. PRE-PROCEDURE SEDATION ASSESSMENT: Current history and physical dictated by referring physician and reviewed. No clinical changes since date of exam. Patient has a Mallampati Score of Class 1 and ASA Class of 3. PROCEDURAL SEDATION PROTOCOL: The Drugs used were: 1 mg Versed, IV, and 25 mcg Fentanyl, IV. The sedation time was: 23 minutes, starting at 9:15 AM and terminated at 9:38 AM. The procedural sedation protocol was independently monitored by the department nurse. RADIATION DOSAGE (If Supplied By Facility): CTDIvol = 14.42 mGy, DLP = 210.17 mGycm Individualized dose optimization techniques were used for this CT. TECHNIQUE The patient was placed in a prone position. A noncontrast CT was performed to localize the lesion in the left retroperitoneal space. The skin surface was prepped with chlorhexidine and draped in a sterile fashion. 2% lidocaine was used for local anesthesia. Using CT guidance, a 18-gauge coaxial biopsy device was advanced to the periphery of the lesion. A total of 6 core specimens were obtained. Specimens were microscopically reviewed by pathology in the CT suite and placed in formalin solution, as well as RPMI. The biopsy needle was removed and a sterile dressing was applied to the biopsy site. The patient tolerated the procedure well without adverse event. A negative biopsy does not exclude malignancy. Further imaging or clinical followup based on patient condition and degree of clinical suspicion for malignancy. Suggest rebiopsy, if biopsy results do not match with clinical scenario. IMPRESSION: CT directed core needle biopsy of the left retroperitoneal lymph node using CT image guidance with image documentation as described. Pathology results are pending. Procedural Sedation protocol utilized with independent monitoring by the department nurse. Surgical Findings: Successful lymph node biopsy Complications Complications: No
== END 2024-08-27 23:59 | disposition home or self-care (01) ==
PROVIDERS: Radiology Diagnostic Radiology; PCP Family Medicine; Referring Provider Internal Medicine Hematology & Oncology; Visit Provider Internal Medicine Hematology & Oncology
DX: C77.2 Secondary and unspecified malignant neoplasm of intra-abdominal lymph nodes (principal); C25.9 Malignant neoplasm of pancreas, unspecified; R59.9 Enlarged lymph nodes, unspecified
CPT/HCPCS: 49180; 77012; 85025; 85610; 85730; 88172; 88305; 88313; 88341; 88342; 99156; A4216

== ENCOUNTER 2024-09-14 18:37 | Inpatient (IN) | payer BC, MEDICARE, SELFPAY ==
[2024-09-14 18:37] VITALS: BP 66/55; BP 93/56; PULSE 105; PULSE 97; RESP 24; TEMP 36.3; O2SAT 93
--- NOTE | 2024-09-14 18:49 | EKG12_ITS ---
Test Reason : CP Blood Pressure : */* mmHG Vent. Rate : 119 BPM Atrial Rate : 119 BPM P-R Int : 120 ms QRS Dur : 70 ms QT Int : 324 ms P-R-T Axes : 85 -20 82 degrees QTcB Int : 455 ms Sinus tachycardia with Premature supraventricular complexes and with occasional Premature ventricular complexes Junctional ST depression, probably normal Borderline ECG Confirmed by Anibal Edwards ([id number]), editor trade journal LESVIA SWANSON ([id number]) on 09/16/2024 8:04:43 AM Referred By: Jose Ramon [place] Confirmed By: Anibal Edwards
[2024-09-14 19:18] VITALS: O2SAT 93
--- NOTE | 2024-09-14 19:36 | EX.ED.DYSGE1 ---
HPI <SAMANTHA Driver - Last Filed: 09/14/24 21:10> History of Present Illness Chief Complaint: Shortness of Breath Narrative Narrative: Patient is a 68-year-old female, patient has a complicated history with metastatic cancer. Patient started off with laryngeal cancer, this was in 2016, patient now has cancer to the pancreas, as well as bilateral lungs. Patient was he had a surgery at [facility] for a pancreatic drain. Patient is currently on the second round of chemotherapy. Patient was brought to the emergency department after the [id number] saw how weak the patient was. The patient has been having nonstop diarrhea, has had multiple blood transfusions secondary to low hemoglobin and overall weakness. Patient also was complaining of lower leg weakness and swelling. Patient is not complaining of any specific pain, no nausea or vomiting. Sometimes the stool is dark in color. It is mostly liquid water. 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 Regional lymph node metastasis present Pancreas cancer Obstructive jaundice Mass of head of pancreas Wears glasses Post-menopausal Alcohol use Thyroid disease Difficulty swallowing Gastric reflux Former smoker Hoarseness History of echocardiogram Brain TIA Laryngeal cancer HTN (hypertension) COPD (chronic obstructive pulmonary disease) Home Medications ?Medication ?Instructions ?Recorded ?Last Taken ?Type levothyroxine 75 mcg tablet 50 mcg PO MOTUWETHFR thyroid 11/30/21 08/25/24 History omeprazole 40 mg capsule,delayed 40 mg PO DAILY gerd 11/30/21 08/25/24 History release aspirin 81 mg chewable tablet 81 mg PO BREAKFAST blood thinner 12/01/21 08/19/24 Rx #30 tabs cholecalciferol (vitamin D3) 125 125 mcg PO DAILY supplement 12/17/23 Unknown History mcg (5,000 unit) capsule lisinopril 10 mg tablet 10 mg PO BID bp 12/17/23 08/24/24 History levothyroxine 50 mcg tablet 100 mcg PO SUSA thyroid 01/14/24 Unknown History lidocaine-prilocaine 2.5 %-2.5 % 1 applic topical ONCE PRN port 08/20/24 Unknown Rx topical cream access 30 days #30 grams ondansetron 8 mg disintegrating 8 mg PO Q8H PRN nausea and 08/20/24 Unknown Rx tablet vomiting #30 tabs prochlorperazine maleate 10 mg 10 mg PO Q6H PRN nausea and 08/20/24 Unknown Rx tablet vomiting #30 tabs potassium chloride 20 mEq/15 mL 10 meq (7.5 mL) PO QDAY #750 mL 09/03/24 Unknown Rx oral liquid Allergy/AdvReac Type Severity Reaction Status Date / Time No Known Allergies Allergy Verified 09/14/24 18:38 Family History Sister Cancer ovarian Father Heart disease Grandfather Diabetes Other CVA (cerebral vascular accident) Surgical History History of ERCP Hx of tracheostomy Hx of esophagogastroduodenoscopy Hx of colonoscopy History of surgery Laryngeal cancer Social History Smoking Status: Former smoker Tobacco: How many years used: 25 alcohol intake: current alcohol intake frequency: holidays/special occasions only Alcohol type: wine substance use type: does not use ROS <SAMANTHA Driver - Last Filed: 09/14/24 21:10> ROS ED ROS Narrative Constitutional: Negative for fever, chills. Positive for weakness, weight loss Eyes: Negative for vision loss, vision change, double vision ENT: Negative for any sore throat, ear pain, congestion Cardiovascular: Negative for any chest pain, tightness, palpitations Respiratory: Negative for any cough, sputum production, hemoptysis, dyspnea, dyspnea on exertion, orthopnea Gastrointestinal: Negative for any abdominal pain, nausea, vomiting, constipation, blood in stool, blood in vomit. Positive for diarrhea : Negative for any urinary frequency, dysuria, retention, blood in urine Muscle skeletal: Negative for any neck pain, back pain Neurological: Negative for any headache, syncope, dizziness Skin: Negative for any rashes, itching, abrasions, lacerations Psychiatric: Negative for any depression, anxiety, stress, suicidal ideation, homicidal ideation Hematologic: Negative for any excessive bruising, easy bleeding EXAM <Mukul Vilchis FOOTBALL COACH-C - Last Filed: 09/14/24 21:10> Physical Exam Narrative Exam Narrative: Vital signs reviewed. Patient appears cachectic, patient is hypotensive, patient is not complain of any pain, is alert and oriented. HEET: Head normocephalic atraumatic, TMs clear bilaterally. Posterior pharynx is clear, dry mucous membranes. Nares clear bilaterally. Neck: Supple with no lymphadenopathy or tenderness. No signs of meningismus. Cardiac: Tachycardic rate no murmurs gallops or rubs, equal peripheral pulses bilaterally. Respiratory: Lungs clear to auscultation bilaterally. No chest tenderness. Abdomen: Soft, nontender, nondistended. No abdominal bruit or pulsatile masses. No hepatosplenomegaly Extremities: +3 pitting edema to bilateral lower extremities no signs of gross trauma or deformity. Active full range of motion of all extremities. Neuro: Cranial nerves II through XII intact, no focal neurological deficits. Skin: Clean dry and intact with no rash, purpura, petechiae, vesicles or pustules. Backs/flank: No CVA tenderness, no midline spinal tenderness, no deformity. Psych: Normal mood and affect. No SI, HI or acute psychosis. Rectal: Rectal exam completed with female nurse roofing technician. Patient does appear cachectic, patient has no ron bleeding, stool was slightly green, the rectal vault was mostly empty. Const Vital Signs: 09/14/24 18:37 09/14/24 18:37 09/14/24 19:18 Temperature 97.4 F L Temperature Source Oral Pulse Rate 105 H 97 Respiratory Rate 24 H Respiratory Effort Short of Breath Respiratory Depth Normal Respiratory Pattern Normal Blood Pressure 66/55 L 93/56 L Blood Pressure Mean 58 68 Pulse Ox 93 Oxygen Delivery Method Room Air Room Air 09/14/24 19:57 09/14/24 19:57 09/14/24 21:00 Temperature 97.5 F L 97.5 F L Temperature Source Temporal Temporal Pulse Rate 90 85 Respiratory Rate 18 16 Respiratory Effort Respiratory Depth Respiratory Pattern Blood Pressure 102/54 L 102/54 L 95/62 Blood Pressure Mean 70 70 73 Pulse Ox 94 100 Oxygen Delivery Method Room Air Room Air 09/14/24 21:00 Temperature Temperature Source Pulse Rate Respiratory Rate Respiratory Effort Respiratory Depth Respiratory Pattern Blood Pressure 95/62 Blood Pressure Mean 73 Pulse Ox Oxygen Delivery Method Positive cachectic General Appearance ED: cachectic Nutritional Appearance: cachectic <Dr. Dimitri Flores DO - Last Filed: 09/14/24 22:47> Physical Exam Const Vital Signs: 09/14/24 18:37 09/14/24 18:37 09/14/24 19:18 Temperature 97.4 F L Temperature Source Oral Pulse Rate 105 H 97 Respiratory Rate 24 H Respiratory Effort Short of Breath Respiratory Depth Normal Respiratory Pattern Normal Blood Pressure 66/55 L 93/56 L Blood Pressure Mean 58 68 Pulse Ox 93 Oxygen Delivery Method Room Air Room Air 09/14/24 19:57 09/14/24 19:57 09/14/24 21:00 Temperature 97.5 F L 97.5 F L Temperature Source Temporal Temporal Pulse Rate 90 85 Respiratory Rate 18 16 Respiratory Effort Respiratory Depth Respiratory Pattern Blood Pressure 102/54 L 102/54 L 95/62 Blood Pressure Mean 70 70 73 Pulse Ox 94 100 Oxygen Delivery Method Room Air Room Air 09/14/24 21:00 Temperature Temperature Source Pulse Rate Respiratory Rate Respiratory Effort Respiratory Depth Respiratory Pattern Blood Pressure 95/62 Blood Pressure Mean 73 Pulse Ox Oxygen Delivery Method MDM <SAMANTHA Driver - Last Filed: 09/14/24 21:10> [facility] Lab Data Labs: Laboratory Results - last 24 hr 09/14/24 09/14/24 19:45 19:45 WBC 0.2 L* RBC 2.83 L Hgb 8.1 L Hct 25.0 L MCV 88.3 MCH 28.6 MCHC 32.4 RDW Std Deviation 62.1 H RDW Coeff of Cecelia 19.5 H Plt Count 71 L MPV 10.4 Immature Gran % (Auto) 0.000 Neut % (Auto) 52.3 Lymph % (Auto) 42.9 H [place] % (Auto) 0.0 Eos % (Auto) 0.0 Baso % (Auto) 4.8 H Absolute Neuts (auto) 0.1 L Absolute Lymphs (auto) 0.09 L Nucleated RBC % 0 Diff Path Review May foll Atypical Lymphocytes 1+ Toxic Granulation 1+ Anisocytosis 2+ Ovalocytes 1+ Sodium 139 Potassium 4.3 Chloride 107 Carbon Dioxide 22.0 Anion Gap 10 BUN 64 H Creatinine 1.97 H Estim Creat Clear Calc 21.03 Est GFR (MDRD) Af Amer 32 L Est GFR (MDRD) Non-Af 27 L BUN/Creatinine Ratio 32.5 H Glucose 156 H Lactic Acid 1.8 Calcium 8.0 L Magnesium 2.3 2.2 Total Bilirubin 1.80 H Direct Bilirubin 1.30 H AST 21 ALT 11 L Alkaline Phosphatase 103 Troponin I High Sens < 3 L Total Protein 5.2 L Albumin 1.5 L Globulin 3.7 Lipase 19 L Folate 7.70 TSH 34.200 H Blood Type O POSITIVE Antibody Screen NEGATIVE Radiography Diagnostic Testing: Clinical Impression(s) from Imaging Studies Brain CT 09/14/24 20:05 IMPRESSION: No acute intracranial abnormality. Reading Location: [facility] Chest X-Ray 09/14/24 20:10 IMPRESSION: No acute airspace abnormality. Reading Location: [facility] EKG EKG shows sinus tachycardia: Attestation: I personally reviewed and interpreted this EKG as follows: Comments: Sinus tachycardia with premature supraventricular complexes and with occasional premature ventricular complexes. Rate of 119 bpm, ID interval 120 ms, QRS duration 70 ms, no acute ST elevation, no acute infarct noted. Treatment and Re-Evaluation :: Differential diagnosis includes however is not limited to: Sequelae to chemotherapy, electrode abnormality, anemia, upper GI bleed, lower GI bleed, worsening metastatic cancer, failure to thrive Patient's blood pressure was slightly low, patient's heart rate was greater than 105. Patient does look volume depleted. Presenting to the emergency department for diarrhea, weakness postchemotherapy. Patient is concerning for electrolyte abnormality. Patient received blood cultures x 2, type and screen, laboratory values as well as 1 L normal saline. I did perform a stool occult test. It was darker green however no significant black or ron blood. Patient will likely need to be admitted to the hospital. Patient's stool occult was positive. Patient CT scan of the brain showed no acute abnormality. Patient's chest x-ray showed no acute abnormality. Patient's CBC shows a leukopenia, patient's hemoglobin is 8.1, 4 days ago was 6.9, this is after 2 units of blood. Patient's chemistries do show an MICHAEL with a creatinine of 1.97, patient's baseline is between 0.6-0.9. Lactic acid was negative. Total bilirubin was 1.8, troponin was less than 3. Lipase was negative. At this time, secondary the patient having some constant diarrhea, blood in stool, MICHAEL, do believe the patient needs to be admitted to the hospital. I will reach out to the hospitalist <Dr. Dimitri Flores, DO - Last Filed: 09/14/24 22:47> [facility] Lab Data Labs: Laboratory Results - last 24 hr 09/14/24 09/14/24 19:45 19:45 WBC 0.2 L* RBC 2.83 L Hgb 8.1 L Hct 25.0 L MCV 88.3 MCH 28.6 MCHC 32.4 RDW Std Deviation 62.1 H RDW Coeff of Cecelia 19.5 H Plt Count 71 L MPV 10.4 Immature Gran % (Auto) 0.000 Neut % (Auto) 52.3 Lymph % (Auto) 42.9 H [place]on % (Auto) 0.0 Eos % (Auto) 0.0 Baso % (Auto) 4.8 H Absolute Neuts (auto) 0.1 L Absolute Lymphs (auto) 0.09 L Nucleated RBC % 0 Diff Path Review May foll Atypical Lymphocytes 1+ Toxic Granulation 1+ Anisocytosis 2+ Ovalocytes 1+ Sodium 139 Potassium 4.3 Chloride 107 Carbon Dioxide 22.0 Anion Gap 10 BUN 64 H Creatinine 1.97 H Estim Creat Clear Calc 21.03 Est GFR (MDRD) Af Amer 32 L Est GFR (MDRD) Non-Af 27 L BUN/Creatinine Ratio 32.5 H Glucose 156 H Lactic Acid 1.8 Calcium 8.0 L Magnesium 2.3 2.2 Total Bilirubin 1.80 H Direct Bilirubin 1.30 H AST 21 ALT 11 L Alkaline Phosphatase 103 Troponin I High Sens < 3 L Total Protein 5.2 L Albumin 1.5 L Globulin 3.7 Lipase 19 L Folate 7.70 TSH 34.200 H Blood Type O POSITIVE Antibody Screen NEGATIVE Radiography Diagnostic Testing: Clinical Impression(s) from Imaging Studies Brain CT 09/14/24 20:05 IMPRESSION: No acute intracranial abnormality. [facility] Chest X-Ray 09/14/24 20:10 IMPRESSION: No acute airspace abnormality. Reading Location: [facility] Treatment and Re-Evaluation :: Differential diagnosis includes however is not limited to: Sequelae to chemotherapy, electrode abnormality, anemia, upper GI bleed, lower GI bleed, worsening metastatic cancer, failure to thrive Patient's blood pressure was slightly low, patient's heart rate was greater than 105. Patient does look volume depleted. Presenting to the emergency department for diarrhea, weakness postchemotherapy. Patient is concerning for electrolyte abnormality. Patient received blood cultures x 2, type and screen, laboratory values as well as 1 L normal saline. I did perform a stool occult test. It was darker green however no significant black or ron blood. Patient will likely need to be admitted to the hospital. Patient's stool occult was positive. Patient CT scan of the brain showed no acute abnormality. Patient's chest x-ray showed no acute abnormality. Patient's CBC shows a leukopenia, patient's hemoglobin is 8.1, 4 days ago was 6.9, this is after 2 units of blood. Patient's chemistries do show an MICHAEL with a creatinine of 1.97, patient's baseline is between 0.6-0.9. Lactic acid was negative. Total bilirubin was 1.8, troponin was less than 3. Lipase was negative. At this time, secondary the patient having some constant diarrhea, blood in stool, MICHAEL, do believe the patient needs to be admitted to the hospital. I will reach out to the hospitalist ED attending note: I evaluated the patient in conjunction with the DENISE. I agree with his/her statements and above findings. I have personally performed a face to face assessment of the patient and have reviewed the DENISE Note. I performed a substantive portion of the visit including all aspects of the following. I personally saw the patient performed chart review, physical exam, reviewed labs, imaging (if obtained), and formulated a treatment and management plan. This note was generated with [employer] software. It may contain incorrect words, spelling, and punctuation that were not noted in review of the chart prior to signing. Discharge Plan Disposition Disposition: [facility] Discharge Date/Time: 09/14/24 22:13
[2024-09-14] MEDS: 0.9% Normal Saline (1000mL) 1,000 ML 999 ML IV (19:56)
[2024-09-14 19:57] VITALS: BP 102/54; PULSE 90; RESP 18; TEMP 36.4; O2SAT 94; BMI 18.1
[2024-09-14 20:03] LABS: Absolute Lymphocyte Count 0.09 X10^3/uL (0.83-4.51); Absolute Neutrophil Count 0.1 X10^3/uL (2.0-7.7); Basophil# 0.01 X10^3/uL; Basophil% 4.8 % (0-1); Hemoglobin 8.1 g/dL (12.0-15.0); Lymphocyte # 0.09 X10^3/ul (0.83-4.51); Lymphocyte % 42.9 % (19-41); Mean Corp Hgb Conc 32.4 g/dL (32-36); Mean Corpuscular Hgb 28.6 pg (27.0-32.0); Mean Corpuscular Volume 88.3 fL (81-99); Mean Platelet Vol. 10.4 fl (6.2-12.0); NRBC Flagged by Analyzer 0 % (0-5); Neutrophil # 0.11 X10^3/uL (2.7-7.7); Neutrophil % 52.3 % (47-70); POSITIVE COUNT YES; POSITIVE DIFFERENTIAL YES; POSITIVE MORPHOLOGY YES; Platelet Count 71 K/mm3 (150-450); RBC Distribution Width CV 19.5 % (11.6-14.6); RBC Distribution Width SD 62.1 fl (35.1-43.9); Red Blood Count 2.83 M/mm3 (4.2-5.4); White Blood Count 0.2 K/mm3 (4.4-11.0)
--- NOTE | 2024-09-14 20:05 | CT_ITS ---
EXAM: CT brain without IV contrast CLINICAL HISTORY: Altered mental status COMPARISON: 12/01/2021 TECHNIQUE: Multiple contiguous axial images of the brain were obtained without the administration of intravenous contrast. Two-dimensional coronal and sagittal reformatted images were reconstructed. Low-dose imaging technique was utilized. FINDINGS: No evidence of acute intracranial hemorrhage, midline shift or mass effect. No definite CT evidence of acute territorial cortical infarction. No hydrocephalus. Mild cerebral atrophy and chronic small-vessel ischemic changes. Calvarium is intact. Paranasal sinuses and mastoid air cells are clear. CT/Brain/Head without Contrast IMPRESSION: No acute intracranial abnormality. Reading Location: [facility]
--- NOTE | 2024-09-14 20:10 | RAD_ITS ---
PROCEDURE: CHEST 1 VIEW (PORTABLE) REASON FOR EXAM: Cough TECHNIQUE: Single frontal image including the chest. COMPARISON: None. FINDINGS: Right MediPort catheter in place. Cardiomediastinal silhouette is within normal limits. Tracheostomy tube terminating 3.1 cm above the tyron. No focal consolidation, sizeable pleural effusion or pneumothorax. RAD/Chest 1 View (Portable) IMPRESSION: No acute airspace abnormality. Reading Location: [facility]
[2024-09-14 20:19] LABS: Differential Indicated SCAN CRITERIA MET
[2024-09-14 20:30] LABS: Lactic Acid 1.8 mmol/L (0.4-1.9)
[2024-09-14 20:39] LABS: AST(SGOT) 21 U/L (15-37); Alanine Aminotransfer ALT/SGPT 11 U/L (13-56); Albumin, Serum 1.5 g/dL (3.2-5.0); Alkaline Phosphatase 103 U/L (45-117); Anion Gap 10 (5-15); BUN 64 mg/dL (7-18); BUN/Creat Ratio 32.5 RATIO (10-20); Chloride 107 mmol/L (98-107); Creatinine, Serum 1.97 mg/dL (0.55-1.02); EST Glomerular Filtration Rate 27 mL/min (>60); Est Glom Filt Rate - Afr Amer 32 mL/min (>60); Estimated Creatinine Clearance 21.03 ml/min; Globulin 3.7 g/dL (2.2-4.2); Glucose 156 mg/dL (74-106); Lipase 19 U/L (73-393); Magnesium 2.3 mg/dL (1.6-2.6); Potassium 4.3 mmol/L (3.5-5.1); Protein, Total 5.2 g/dL (6.4-8.2); Sodium Level 139 mmol/L (136-145); Troponin-I HS < 3 pg/mL (3.0-54.0)
[2024-09-14 20:57] LABS: Anisocytosis 2+; Atypical Lymphocyte 1+ %; Ovalocyte 1+; Toxic Granulation 1+
[2024-09-14 21:00] VITALS: BP 95/62; PULSE 85; RESP 16; TEMP 36.4; O2SAT 100
--- NOTE | 2024-09-14 21:15 | PCM.HP.STD ---
[facility] - General General Date of Admission: 09/14/24 Date of Service: 09/14/24 Chief Complaint: Diarrhea with Dark Stools and Generalized Weakness after Chemotherapy. HPI Narrative LYN LOPEZ, is a 68 F with a past medical history of essential hypertension; on lisinopril, hypothyroidism; on levothyroxine, former tobacco abuse for ~25 years; with subsequent COPD, history of laryngeal cancer; s/p laryngectomy with laryngeal reconstruction and permanent tracheostomy followed by adjuvant radiation and cisplatin (2015), pancreatic cancer (06/2024); with metastases to both lungs and liver followed by Dr. Jaffe with obstructive jaundice and recent pancreatic drain placed at with her recently having underwent her second round of chemotherapy with Gemzar (with Abraxane not able to be restarted due to residual jaundice, history of ERCP, history of EGD/colonoscopy, history of TIA, chronic iron deficiency anemia, history of GERD; with difficulty swallowing and OA who presents to [facility] ER complaining of diarrhea with dark stools and generalized weakness after chemotherapy. Ms. Lopez reports her symptoms began approximately two days prior to admission with patient having non-stop diarrhea with generalized weakness that began after her last dose of chemotherapy. She also admits to lower extremity weakness and swelling. She denies associated fever, chills, abdominal pain, nausea or vomiting. In the ER she was noted to have Critical Leukopenia of 0.2K present on admission with [id number] Thrombocytopenia of 71K present on admission complicated by MICHAEL; with elevated serum creatinine of 1.97 mg/dL with a BUN of 64 mg/dL present on admission (up form her baseline of 0.65 mg/dL and BUN of 7 mg/dL ~2 weeks ago) compounded by Mild Hyperbilirubinemia of 1.8 mg/dL (with a direct bilirubin of 1.3 mg/dL) present on admission and Severe Hypoalbuminemia of 1.5 g/dL present on admission due to suspected Acute Severe Protein-Calorie Malnutrition with Hemoccult positive stools and Diarrhea all suspected to be due to Adverse Drug Reaction to Chemotherapy to treat known Metastatic Pancreatic Cancer and she was then admitted to the PCU for ongoing care for a stay that is expected to extend beyond 2 midnights. 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 Regional lymph node metastasis present Pancreas cancer Obstructive jaundice Mass of head of pancreas Wears glasses Post-menopausal Alcohol use Thyroid disease Difficulty swallowing Gastric reflux Former smoker Hoarseness History of echocardiogram Brain TIA Laryngeal cancer HTN (hypertension) COPD (chronic obstructive pulmonary disease) Home Medications ?Medication ?Instructions ?Recorded ?Last Taken ?Type levothyroxine 75 mcg tablet 50 mcg PO MOTUWETHFR thyroid 11/30/21 08/25/24 History omeprazole 40 mg capsule,delayed 40 mg PO DAILY gerd 11/30/21 08/25/24 History release aspirin 81 mg chewable tablet 81 mg PO BREAKFAST blood thinner 12/01/21 08/19/24 Rx #30 tabs cholecalciferol (vitamin D3) 125 125 mcg PO DAILY supplement 12/17/23 Unknown History mcg (5,000 unit) capsule lisinopril 10 mg tablet 10 mg PO BID bp 12/17/23 08/24/24 History levothyroxine 50 mcg tablet 100 mcg PO SUSA thyroid 01/14/24 Unknown History lidocaine-prilocaine 2.5 %-2.5 % 1 applic topical ONCE PRN port 08/20/24 Unknown Rx topical cream access 30 days #30 grams ondansetron 8 mg disintegrating 8 mg PO Q8H PRN nausea and 08/20/24 Unknown Rx tablet vomiting #30 tabs prochlorperazine maleate 10 mg 10 mg PO Q6H PRN nausea and 08/20/24 Unknown Rx tablet vomiting #30 tabs potassium chloride 20 mEq/15 mL 10 meq (7.5 mL) PO QDAY #750 mL 09/03/24 Unknown Rx oral liquid Allergy/AdvReac Type Severity Reaction Status Date / Time No Known Allergies Allergy Verified 09/14/24 18:38 Family History Sister Cancer ovarian Father Heart disease Grandfather Diabetes Other CVA (cerebral vascular accident) Surgical History History of ERCP Hx of tracheostomy Hx of esophagogastroduodenoscopy Hx of colonoscopy History of surgery Laryngeal cancer Social History Smoking Status: Former smoker Tobacco: How many years used: 25 alcohol intake: current alcohol intake frequency: holidays/special occasions only Alcohol type: wine substance use type: does not use ROS ROS Narrative Review of Systems: Constitutional: Patient admits to generalized weakness but she denies fevers or chills. Eyes: Patient denies changes in vision or discharge from eyes. ENT: Patient denies runny nose, sore throat or ear pain. Resp: Patient denies SOB or cough. CV: Patient denies chest pain, palpitations or heart racing. GI: Patient admits to dark, watery diarrhea since her last chemotherapy treatment as per HPI. : Patient denies dysuria or hematuria. MSK: Patient admits to generalized weakness as per HPI. Skin: Patient denies rash, abscess, wounds or jaundice. Psych: Patient denies symptoms of uncontrolled depression or anxiety. Neuro: Patient denies headache, paresthesias or focal neurologic deficits. Allergy: Patient denies lip swelling, tongue swelling or urticaria. Hematology: Patient admits to dark, watery stools that were Hemoccult + in ER. Endocrinology: Patient denies polyuria, polydipsia or polyphagia. 14 point ROS otherwise negative except for positives noted above in HPI. Vital Signs Vital Signs Vital Signs: 09/14/24 18:37 09/14/24 18:37 09/14/24 19:18 Temperature 97.4 F L Temperature Source Oral Pulse Rate 105 H 97 Respiratory Rate 24 H Respiratory Effort Short of Breath Respiratory Depth Normal Respiratory Pattern Normal Blood Pressure 66/55 L 93/56 L Blood Pressure Mean 58 68 Pulse Ox 93 Oxygen Delivery Method Room Air Room Air 09/14/24 19:57 09/14/24 19:57 Temperature 97.5 F L Temperature Source Temporal Pulse Rate 90 Respiratory Rate 18 Respiratory Effort Respiratory Depth Respiratory Pattern Blood Pressure 102/54 L 102/54 L Blood Pressure Mean 70 70 Pulse Ox 94 Oxygen Delivery Method Room Air Weight Weight: 106 lb Body Mass Index (BMI) 18.1 Physical Exam Const alert and oriented x3 Constitutional Narrative: Patient appears cachectic and chronically ill. General Appearance: cooperative HEENT normocephalic, head/scalp atraumatic and hearing grossly normal bilaterally HEENT Narrative: Mucous membranes dry. Eyes PERRL, EOMs intact bilaterally and conjunctivae normal Neck no lymphadenopathy, supple and no JVD Resp normal respiratory effort, no retractions, no use of accessory muscles and clear to auscultation bilaterally Cardio regular rate and regular rhythm GI normal to inspection, nondistended, normoactive bowel sounds, soft to palpation, non-tender and non-distended Extremity Extremity Narrative: ~3+ symmetrical bilateral LE pitting edema. Skin Skin Narrative: Patient has no evidence of rash, abscess, wounds or jaundice. Neuro oriented x3, CN's II-XII intact bilaterally, moves all extremities and no focal motor deficits Sensorium / Orientation: awake, alert, oriented to person, oriented to place and oriented to time Speech: speech normal Psych affect normal Results Medical Records Data Attestation: I reviewed the patient's medical records Lab / Micro Data Attestation: I reviewed the patient's lab results. 09/14/24 19:45 09/14/24 19:45 Labs: Laboratory Results - last 24 hr 09/14/24 19:45: WBC 0.2 L*, RBC 2.83 L, Hgb 8.1 L, Hct 25.0 L, MCV 88.3, MCH 28.6, MCHC 32.4, RDW Std Deviation 62.1 H, RDW Coeff of Cecelia 19.5 H, Plt Count 71 L, MPV 10.4, Immature Gran % (Auto) 0.000, Neut % (Auto) 52.3, Lymph % (Auto) 42.9 H, [place] % (Auto) 0.0, Eos % (Auto) 0.0, Baso % (Auto) 4.8 H, Absolute Neuts (auto) 0.1 L, Absolute Lymphs (auto) 0.09 L, Nucleated RBC % 0, Diff Path Review May foll, Atypical Lymphocytes 1+, Toxic Granulation 1+, Anisocytosis 2+, Ovalocytes 1+, Sodium 139, Potassium 4.3, Chloride 107, Carbon Dioxide 22.0, Anion Gap 10, BUN 64 H, Creatinine 1.97 H, Estim Creat Clear Calc 21.03, Est GFR (MDRD) Af Amer 32 L, Est GFR (MDRD) Non-Af 27 L, BUN/Creatinine Ratio 32.5 H, Glucose 156 H, Lactic Acid 1.8, Calcium 8.0 L, Magnesium 2.3, Total Bilirubin 1.80 H, Direct Bilirubin 1.30 H, AST 21, ALT 11 L, Alkaline Phosphatase 103, Troponin I High Sens < 3 L, Total Protein 5.2 L, Albumin 1.5 L, Globulin 3.7, Lipase 19 L Micro: Microbiology 09/14/24 19:45 Stool Stool Occult Blood (ANTONIO) - Final Occult Blood Positive Imaging Radiology Impression Brain CT 09/14/24 20:05 IMPRESSION: No acute intracranial abnormality. Reading [facility] Chest X-Ray 09/14/24 20:10 IMPRESSION: No acute airspace abnormality. Reading Location: [facility] Assessment & Plan Assessment/Plan (1) Diarrhea: QUALIFIERS: Diarrhea type: unspecified type Qualified Code(s): R19.7 - Diarrhea, unspecified (2) Occult blood in stools: (3) Adverse drug reaction: QUALIFIERS: Encounter type: initial encounter Qualified Code(s): T50.905A - Adverse effect of unspecified drugs, medicaments and biological substances, initial encounter (4) Primary pancreatic cancer with metastasis to other site: (5) Leukopenia due to antineoplastic chemotherapy: (6) Thrombocytopenia: (7) MICHAEL (acute kidney injury): (8) Hyperbilirubinemia: (9) Hypoalbuminemia due to protein-calorie malnutrition: (10) Hypothyroidism: QUALIFIERS: Hypothyroidism type: unspecified Qualified Code(s): E03.9 - Hypothyroidism, unspecified (11) Generalized weakness: PLAN: Plan 1. Acute Watery Diarrhea that is dark in color with Hemoccult positive test noted in ER with Critical Leukopenia of 0.2K present on admission - Admit to PCU under enteric precautions. Check stool studies and start empiric IV piperacillin-tazobactam and IV metronidazole. Start pantoprazole IV daily. Keep NPO. Type & Screen blood in case transfusion becomes necessary. Finally, we will consult gastroenterology to see this patient on-rounds in the AM for further recommendations regarding panendoscopy this admission with help appreciated in advance. 2. MICHAEL; with elevated serum creatinine of 1.97 mg/dL with a BUN of 64 mg/dL present on admission (up form her baseline of 0.65 mg/dL and BUN of 7 mg/dL ~2 weeks ago) likely causing #1 - Aggressively volume resuscitate and recheck renal indices daily to follow trend. 3. Adverse Drug Reaction to Chemotherapy used to treat Metastatic Pancreatic Cancer with recent pancreatic drain placed at with her recently having underwent her second round of chemotherapy with Gemzar (with Abraxane not able to be restarted due to residual jaundice and [id number] Thrombocytopenia of 71K and Mild Hyperbilirubinemia of 1.8 mg/dL (with a direct bilirubin of 1.3 mg/dL) present on admission precipitating #1 & #2 - Hold chemotherapy until further notice with patient poorly tolerating this treatment. Check CBC daily to follow trend. 4. Severe Hypoalbuminemia of 1.5 g/dL present on admission due to suspected Acute Severe Protein-Calorie Malnutrition with ~3+ symmetrical bilateral LE pitting edema complicating #1 - #3 - We will consult clinical dietitian to see this patient on-rounds in the AM for formal malnutrition evaluation with help appreciated in advance. 5. Hypothyroidism with TSH of 34.2 this admission compounding #1 - #4 - Likely due to poor absorption of oral levothyroxine. IV levothyroxine ordered for severe acute deficiency. FT4 and FT3 pending at this time. 6. Generalized Weakness attributable to #1 - #5 - PT/OT and Case Management to consult and treat on-rounds in AM with help appreciated in advance. 7. History of laryngeal cancer; s/p laryngectomy with laryngeal reconstruction and permanent tracheostomy followed by adjuvant radiation and cisplatin (2015) - Noted. 8. Essential Hypertension; on lisinopril - Hold lisinopril and give hydralazine IV prn for systolic blood pressure > 160 mmHg. 9. Hypothyroidism; on levothyroxine - Resume levothyroxine and check TSH. 10. Former tobacco abuse for ~25 years; with subsequent COPD - Stable with no evidence of acute flare at this time. Give nebulizers prn. 11. History of ERCP - Noted. 12. History of EGD/colonoscopy - Noted. 13. History of TIA - Noted. 14. Chronic iron deficiency anemia - Stable with hemoglobin of 8.1 g/dL and MCV of 88.3 fL present on admission. Check iron studies, ferritin, B12 and Folate to more fully evaluate potential causes of anemia. 15. History of GERD; with difficulty swallowing - Noted with patient on IV pantoprazole for #1. 16. OA - Stable. 17. DVT prophylaxis - SCD's only in light of Hemoccult + stools noted on admission. Total time: Approximately (but not less than) 75 minutes. Charges/Coding Visit Charges Inpatient E&M: 13323 Init Hosp L3
[2024-09-14 21:42] VITALS: BP 101/63; PULSE 87; RESP 16; TEMP 36.4; O2SAT 100
[2024-09-14 21:49] VITALS: BP 104/63; PULSE 86; RESP 16; TEMP 36.4; O2SAT 100
[2024-09-14] MEDS: fentaNYL 100 MCG/2 ML Ampul 25 MCG IV (22:07)
[2024-09-14 22:29] LABS: Magnesium 2.2 mg/dL (1.6-2.6)
[2024-09-14 22:39] VITALS: BMI 19.1
[2024-09-14] MEDS: Pantoprazole Sodium 40 MG in 0.9% Normal Saline (100mL MB+) 100 ML 330 MG IV (23:20)
[2024-09-14] MEDS: 0.9% Normal Saline (1000mL) 1,000 ML 125 ML IV (23:25)
[2024-09-14] MEDS: 0.9% Normal Saline (100mL Bag) 100 ML 15 ML IV (23:26)
[2024-09-14] MEDS: metroNIDAZOLE 500 MG/100 ML BAG 100 MG IV (23:48)
[2024-09-14] MEDS: Piperacil/Tazobactam 3.375 GM in 0.9% Normal Saline (50mL MB+) 50 ML IV (23:50)
[2024-09-15] VITALS (13 sets, daily range): BP systolic 88–105; BP diastolic 48–68; PULSE 83–94; RESP 12–16; TEMP 36.3–36.8; O2SAT 98–100; BMI 19.1
[2024-09-15] MEDS: Levothyroxine 50 MCG Tablet PO (06:03)
[2024-09-15] MEDS: Piperacil/Tazobactam 3.375 GM in 0.9% Normal Saline (50mL MB+) 50 ML IV ×2 (06:03→15:11)
[2024-09-15] MEDS: metroNIDAZOLE 500 MG/100 ML BAG 100 MG IV ×3 (06:03→22:08)
[2024-09-15 08:27] LABS: Absolute Lymphocyte Count 0.06 X10^3/uL (0.83-4.51); Absolute Neutrophil Count 0.1 X10^3/uL (2.0-7.7); Basophil# 0.01 X10^3/uL; Basophil% 5.3 % (0-1); Hemoglobin 6.8 g/dL (12.0-15.0); Lymphocyte # 0.06 X10^3/ul (0.83-4.51); Lymphocyte % 31.6 % (19-41); Mean Corp Hgb Conc 30.9 g/dL (32-36); Mean Corpuscular Hgb 27.3 pg (27.0-32.0); Mean Corpuscular Volume 88.4 fL (81-99); Mean Platelet Vol. 9.7 fl (6.2-12.0); NRBC Flagged by Analyzer 0 % (0-5); Neutrophil # 0.12 X10^3/uL (2.7-7.7); Neutrophil % 63.1 % (47-70); POSITIVE COUNT YES; POSITIVE DIFFERENTIAL YES; POSITIVE MORPHOLOGY YES; RBC Distribution Width CV 19.2 % (11.6-14.6); RBC Distribution Width SD 60.1 fl (35.1-43.9); Red Blood Count 2.49 M/mm3 (4.2-5.4)
[2024-09-15 08:31] LABS: Differential Indicated SCAN CRITERIA MET; Platelet Count 47 K/mm3 (150-450); White Blood Count 0.2 K/mm3 (4.4-11.0)
[2024-09-15 09:03] LABS: ALB/GLOB Ratio 0.4 RATIO (0.9-2.4); AST(SGOT) 19 U/L (15-37); Alanine Aminotransfer ALT/SGPT 11 U/L (13-56); Albumin, Serum 1.2 g/dL (3.2-5.0); Alkaline Phosphatase 84 U/L (45-117); Anion Gap 8 (5-15); BUN 59 mg/dL (7-18); BUN/Creat Ratio 41.3 RATIO (10-20); Calcium,Total 7.4 mg/dL (8.5-10.1); Chloride 114 mmol/L (98-107); Creatinine, Serum 1.43 mg/dL (0.55-1.02); EST Glomerular Filtration Rate 39 mL/min (>60); Est Glom Filt Rate - Afr Amer 47 mL/min (>60); Estimated Creatinine Clearance 30.43 ml/min; Free T3 < 0.5 pg/mL (2.18-3.98); Globulin 3.3 g/dL (2.2-4.2); Glucose 114 mg/dL (74-106); Phosphorus 3.7 mg/dL (2.5-4.9); Potassium 3.7 mmol/L (3.5-5.1); Protein, Total 4.5 g/dL (6.4-8.2); Sodium Level 144 mmol/L (136-145); T4 Free Direct 0.54 ng/dL (0.76-1.46)
[2024-09-15 09:30] LABS: Platelet Estimate MKD DEC (ADEQ)
[2024-09-15] MEDS: 0.9% Normal Saline (1000mL) 1,000 ML 125 ML IV (10:25)
[2024-09-15] MEDS: Pantoprazole Sodium 40 MG in 0.9% Normal Saline (100mL MB+) 100 ML 330 MG IV (10:25)
[2024-09-15] MEDS: Menthol/Lanolin/Calamine/Znox 113 GM Tube 1 APPLIC TOPICAL ×2 (10:26→22:10)
[2024-09-15] MEDS: Potassium Chloride Oral Soln 20 MEQ/15 ML UDC 10 MEQ PO (10:26)
[2024-09-15] MEDS: Cholecalciferol (Vit D3) 125 MCG CAPSULE (5,000 UNITS) PO (10:27)
[2024-09-15] MEDS: LEVOTHYROXINE SODIUM 100 MCG VIAL 200 MCG IV (10:28)
[2024-09-15 10:40] LABS: Bacteria 0 SEEN /hpf (None Seen); Mucous, Urine 0 SEEN /hpf (<or=2+); White Blood Cells 0 SEEN /hpf (0-5)
[2024-09-15] MEDS: 0.9% Saline Lock 10 ML Syringe IV (10:40)
[2024-09-15 10:48] LABS: Color, Urine Yellow (Yellow); Glucose, Dipstick Normal (Normal); Ketone-Dipstick Negative (Negative); Leukocyte Esterase-Dipstick 25 /ul (Negative); Nitrite-Dipstick Negative (Negative); Occult Blood-Urine 10 /ul (Negative); Protein-Dipstick 30 mg/dl (Negative); Specific Gravity, Urine 1.015 (1.002-1.030); Urine Bilirubin Dipstick Negative (Negative); Urine Clarity Clear (Clear); Urine Urobilinogen 1 mg/dl (Normal)
[2024-09-15 10:53] LABS: Red Blood Cells-Urine 0 SEEN /hpf (0-5)
[2024-09-15 10:54] LABS: Squamous Epithelial Cells - UA 0-5 SEEN /hpf (5-10)
[2024-09-15 10:55] LABS: Renal Epithelial Cells 0-5 SEEN /hpf (0-5)
[2024-09-15 11:50] LABS: Pathologist Review Reviewed
[2024-09-15 11:52] LABS: Pathologist Review Reviewed
--- NOTE | 2024-09-15 12:20 | CASEMGMT ---
RN CM Face to Face with patient for initial transition planning/care coordination assessment. RN CM introduced self and role at [facility]. Patient lying in bed, alert and oriented, family at bedside. Patient willing to participate in assessment and is able to answer all questions appropriately. Care providers, pharmacy, and demographics verified. Strata: 3 PCP: RAFY Lucio Specialists: Ld, oncologist; Jennifer, ENT at Preferred [facility]acy: [facility] Insurance: CATE Tate Prescription Benefit: yes Living Will/HPOA: yes, Timbo Ramos LNOK: , daughter Living Arrangements: Patient lives with in a single story home with 2 steps and no railing. Patient states she is independent at home. Transportation: self, , daughter DME/HHC: Patient has rollator and wheelchair at home. Patient has had HHC in the past. No previous SNF. Patient wishes to discharge home, will monitor progress with therapy for recommendations. Patient states she has no further needs or concerns at this time. CM to follow for discharge planning needs that may arise. Disposition Plan: Patient to discharge home with family support and follow-up plans in place. Will monitor for additional therapy at discharge. Guillermina QUIGLEY, RN, CM
[2024-09-15] MEDS: Acetaminophen 325 MG Tablet 650 MG PO ×2 (12:24→22:07)
[2024-09-15] MEDS: Vancomycin 125 MG/5 ML Susp PO.SYRINGE PO (17:14)
[2024-09-15 17:31] LABS: Absolute Lymphocyte Count 0.11 X10^3/uL (0.83-4.51); Absolute Neutrophil Count 0.2 X10^3/uL (2.0-7.7); Basophil# 0.01 X10^3/uL; Basophil% 3.1 % (0-1); Hematocrit 26.3 % (37-47); Hemoglobin 8.4 g/dL (12.0-15.0); Lymphocyte # 0.11 X10^3/ul (0.83-4.51); Lymphocyte % 34.4 % (19-41); Mean Corp Hgb Conc 31.9 g/dL (32-36); Mean Corpuscular Hgb 28.2 pg (27.0-32.0); Mean Corpuscular Volume 88.3 fL (81-99); Mean Platelet Vol. 10.1 fl (6.2-12.0); Monocyte# 0.01 X10^3/uL; Monocyte% 3.1 % (0-10); NRBC Flagged by Analyzer 0 % (0-5); Neutrophil # 0.19 X10^3/uL (2.7-7.7); Neutrophil % 59.4 % (47-70); POSITIVE COUNT YES; POSITIVE DIFFERENTIAL YES; POSITIVE MORPHOLOGY YES; RBC Distribution Width CV 18.7 % (11.6-14.6); RBC Distribution Width SD 58.4 fl (35.1-43.9); Red Blood Count 2.98 M/mm3 (4.2-5.4)
[2024-09-15 17:42] LABS: Differential Indicated SCAN CRITERIA MET; Platelet Count 38 K/mm3 (150-450); White Blood Count 0.3 K/mm3 (4.4-11.0)
--- NOTE | 2024-09-15 18:26 | PN.HOSP_ITS ---
Reason for Visit Reason for Visit: Diagnoses Malignant neoplasm of pancreas, unspecified (09/14/24) Thrombocytopenia, unspecified (09/14/24) Agranulocytosis secondary to cancer chemotherapy (09/14/24) Hypothyroidism, unspecified (09/14/24) Unspecified protein-calorie malnutrition (09/14/24) Other disorders of bilirubin metabolism (09/14/24) Other disorders of plasma-protein metabolism, not elsewhere classified (09/14/24) Acute kidney failure, unspecified (09/14/24) Other fecal abnormalities (09/14/24) Diarrhea, unspecified (09/14/24) Weakness (09/14/24) Adverse effect of antineoplastic and immunosuppressive drugs, initial encounter (09/14/24) Adverse effect of unspecified drugs, medicaments and biological substances, initial encounter (09/14/24) Subjective Subjective Patient was seen and examined today, patient's C. difficile toxin and antigen were both positive, patient was started on oral vancomycin today. Patient's hemoglobin this morning was 6.8, transfuse 1 unit of packed red blood cells, this afternoon patient's hemoglobin was 8.4. Patient's repeat platelet count this afternoon was 38,000, her absolute neutrophil count was 200. Objective Data Objective Data Vital Signs: Vital Signs Temp Pulse Resp BP Pulse Ox O2 Del Method 97.9 F 88 16 104/67 99 Room Air 09/15/24 17:12 09/15/24 17:12 09/15/24 17:12 09/15/24 17:12 09/15/24 17:12 09/15/24 17:12 Oxygen Delivery Method Room Air Weight: 50.5 kg Body Mass Index (BMI) 19.1 Intake & Output: Intake and Output for Last 24 Hours 09/13/24 09/14/24 09/15/24 23:59 23:59 23:59 Intake Total 1164.17 / 1164.17 1969.49 / 1969.49 Output Total 250 / 250 Balance 1164.17 / 1164.17 1719.49 / 1719.49 Medical Nutrition Assessment Dietitian: Malnutrition Criteria Met Start: 09/15/24 14:41 Freq: Status: Active Protocol: Document 09/15/24 14:51 SB (Rec: 09/15/24 14:51 SB [id number]) Nutrition Malnutrition Evidence of Yes Malnutrition Exists Malnutrition (severe Chronic ): Evidenced By Suboptimal Energy Intake (Moderate),Physical Changes ( Severe) Clinical Problem Chronic Disease or Condition Related Malnutrition Etiology severe related to inadequate oral intake and increased energy expenditure d/t metastatic pancreatic cancer Signs/Symptoms as evidenced by PO meeting <75% of estimated nutrition needs x >1 week and severe msucle wasting in clavicle and voodoo areas. Status Active Problem Recommendation Dietitian Recommend advanced diet as tolerated to regular; Recommendations/ neutropenic diet. Changes Will order 240ml ensure clear TID with meals; as diet is advanced change to 240ml ensure plus high protein TID with meals. Will monitor weight trends closely. Lab / Micro Data 09/15/24 17:14 09/15/24 08:00 Labs: Laboratory Results - last 24 hr 09/14/24 10:30: Urine Color Yellow, Urine Clarity Clear, Urine pH 5.0, Ur Specific [place] 1.015, Urine Protein 30 H, Urine Glucose (UA) Normal, Urine Ketones Negative, Urine Occult Blood 10 H, Urine Nitrite Negative, Urine Bilirubin Negative, Urine Urobilinogen 1 H, Ur Leukocyte Esterase 25 H, Urine RBC 0 SEEN, Urine WBC 0 SEEN, Ur Squamous Epith Cells 0-5 SEEN, Ur Renal Epithelial Cell 0-5 SEEN, Urine Bacteria 0 SEEN, Urine Mucus 0 SEEN 09/14/24 19:45: WBC 0.2 L*, RBC 2.83 L, Hgb 8.1 L, Hct 25.0 L, MCV 88.3, MCH 28.6, MCHC 32.4, RDW Std Deviation 62.1 H, RDW Coeff of Cecelia 19.5 H, Plt Count 71 L, MPV 10.4, Immature Gran % (Auto) 0.000, Neut % (Auto) 52.3, Lymph % (Auto) 42.9 H, [place] % (Auto) 0.0, Eos % (Auto) 0.0, Baso % (Auto) 4.8 H, Absolute Neuts (auto) 0.1 L, Absolute Lymphs (auto) 0.09 L, Nucleated RBC % 0, Diff Path Review Reviewed, Atypical Lymphocytes 1+, Toxic Granulation 1+, Anisocytosis 2+, Ovalocytes 1+, Sodium 139, Potassium 4.3, Chloride 107, Carbon Dioxide 22.0, Anion Gap 10, BUN 64 H, Creatinine 1.97 H, Estim Creat Clear Calc 21.03, Est GFR (MDRD) Af Amer 32 L, Est GFR (MDRD) Non-Af 27 L, BUN/Creatinine Ratio 32.5 H, G lucose 156 H, Lactic Acid 1.8, Calcium 8.0 L, Magnesium 2.3 09/14/24 19:45: Magnesium 2.2, Total Bilirubin 1.80 H, Direct Bilirubin 1.30 H, AST 21, ALT 11 L, Alkaline Phosphatase 103, Troponin I High Sens < 3 L, Total Protein 5.2 L, Albumin 1.5 L, Globulin 3.7, Lipase 19 L, Folate 7.70, TSH 34.200 H, Blood Type O POSITIVE, Antibody Screen NEGATIVE, Crossmatch See Detail 09/15/24 08:00: WBC 0.2 L*, RBC 2.49 L, Hgb 6.8 L, Hct 22.0 L, MCV 88.4, MCH 27.3, MCHC 30.9 L, RDW Std Deviation 60.1 H, RDW Coeff of Cecelia 19.2 H, Plt Count 47 L*, MPV 9.7, Immature Gran % (Auto) 0.000, Neut % (Auto) 63.1, Lymph % (Auto) 31.6, [place] % (Auto) 0.0, Eos % (Auto) 0.0, Baso % (Auto) 5.3 H, Absolute Neuts (auto) 0.1 L, Absolute Lymphs (auto) 0.06 L, Nucleated RBC % 0, Differential Comment COMMENT, Diff Path Review Reviewed, Platelet Estimate MKD DEC, Sodium 144, Potassium 3.7, Chloride 114 H, Carbon Dioxide 22.0, Anion Gap 8, BUN 59 H, Creatinine 1.43 H, Estim Creat Clear Calc 30.43, Est GFR (MDRD) Af Amer 47 L, E st GFR (MDRD) Non-Af 39 L, BUN/Creatinine Ratio 41.3 H, Glucose 114 H, Calcium 7.4 L, Phosphorus 3.7, Total Bilirubin 1.50 H, AST 19, ALT 11 L, Alkaline Phosphatase 84, Total Protein 4.5 L, Albumin 1.2 L, Globulin 3.3, A lbumin/Globulin Ratio 0.4 L, Vitamin B12 Cancelled, Free T4 0.54 L, Free T3 pg/dL < 0.5 L 09/15/24 17:14: WBC 0.3 L*, RBC 2.98 L, Hgb 8.4 L, Hct 26.3 L, MCV 88.3, MCH 28.2, MCHC 31.9 L, RDW Std Deviation 58.4 H, RDW Coeff of Cecelia 18.7 H, Plt Count 38 L*, MPV 10.1, Immature Gran % (Auto) 0.000, Neut % (Auto) 59.4, Lymph % (Auto) 34.4, [place] % (Auto) 3.1, Eos % (Auto) 0.0, Baso % (Auto) 3.1 H, Absolute Neuts (auto) 0.2 L, Absolute Lymphs (auto) 0.11 L, Nucleated RBC % 0 Micro: Microbiology 09/15/24 10:30 Stool Stool Lactoferrin - Final 09/15/24 10:30 Stool Enteric Bacteriology - Final 09/15/24 10:30 Stool C. difficile GDH Antigen & Toxins - Final Toxigenic C. difficile 09/15/24 10:30 Stool Clostridioides difficile (PCR) - Final 09/14/24 19:45 Stool Stool Occult Blood (ANTONIO) - Final Occult Blood Positive Radiography Diagnostic Testing: Radiology Impression Brain CT 09/14/24 20:05 IMPRESSION: No acute intracranial abnormality. Reading Location: [facility] Chest X-Ray 09/14/24 20:10 IMPRESSION: No acute airspace abnormality. Reading Location: [facility] Physical Exam Const alert and no apparent distress Constitutional Narrative: Patient appears cachectic and frail General Appearance: cooperative, well kempt and well developed Orientation / Consciousness: awake, oriented to person and oriented to place HEENT normocephalic, head/scalp atraumatic and moist oral mucous membranes Eyes PERRL, EOMs intact bilaterally and conjunctivae normal Neck supple, no JVD, thyroid normal and no carotid bruits General: trachea midline Resp normal respiratory effort, no retractions, no use of accessory muscles and clear to auscultation bilaterally Auscultation: Negative for rales, rhonchi or wheezes Cardio regular rate, regular rhythm, S1 normal heart sound, S2 normal heart sound, no murmurs, no rub and no gallops GI normal to inspection, nondistended, normoactive bowel sounds, soft to palpation, non-tender and non-distended Extremity no clubbing, cyanosis or edema Skin no rashes or lesions noted General Skin Exam: no breakdown Neuro CN's II-XII intact bilaterally, moves all extremities, no focal motor deficits and no sensory deficits noted Sensorium / Orientation: awake, alert, oriented to person and oriented to place Speech: speech normal Psych affect normal Assessment & Plan Assessment/Plan (1) Generalized weakness: PLAN: Plan 1. Pancytopenia-secondary to recent chemotherapy for pancreatic cancer, labs will be rechecked tomorrow, again patient was given 1 unit of packed red blood cells this morning #2 C. difficile colitis-patient was placed on oral vancomycin today, IV fluid will be given #3 metastatic pancreatic cancer-prognosis appears poor, patient is on palliative chemotherapy presently. #4 hypothyroidism-patient is on Synthroid #5 acute kidney injury-patient will be given IV fluids, BMP will be rechecked tomorrow Total clinical time spent by myself addressing the patient's medical issues, reviewing all of her data, and collaborating with patient's care team: 35 minutes Charges/Coding Visit Charges Inpatient E&M: 85575 Subs Hosp L2
[2024-09-15 18:37] LABS: Differential Comment SCANNED
[2024-09-15 18:38] LABS: Crenated RBC 1+; Hypochromasia 2+; Macrocytosis RARE
[2024-09-15] MEDS: 0.9% Normal Saline (1000mL) 1,000 ML 100 ML IV (22:07)
[2024-09-16] VITALS (7 sets, daily range): BP systolic 99–117; BP diastolic 57–70; PULSE 79–84; RESP 14–16; TEMP 36.3–36.6; O2SAT 96–100; BMI 20.2
[2024-09-16] MEDS: Vancomycin 125 MG/5 ML Susp PO.SYRINGE PO ×4 (01:23→17:15)
[2024-09-16] MEDS: metroNIDAZOLE 500 MG/100 ML BAG 100 MG IV ×3 (05:41→21:39)
[2024-09-16 05:42] LABS: Hematocrit 24.3 % (37-47); Hemoglobin 7.8 g/dL (12.0-15.0); Mean Corp Hgb Conc 32.1 g/dL (32-36); Mean Corpuscular Hgb 28.3 pg (27.0-32.0); Mean Platelet Vol. 10.5 fl (6.2-12.0); POSITIVE COUNT YES; POSITIVE DIFFERENTIAL YES; POSITIVE MORPHOLOGY YES; RBC Distribution Width CV 18.9 % (11.6-14.6); RBC Distribution Width SD 59.4 fl (35.1-43.9); Red Blood Count 2.76 M/mm3 (4.2-5.4)
[2024-09-16 05:44] LABS: Vitamin B12 962 pg/mL (180-914)
[2024-09-16 06:03] LABS: Platelet Count 27 K/mm3 (150-450); White Blood Count 0.3 K/mm3 (4.4-11.0)
[2024-09-16 07:47] LABS: Absolute Neutrophil Count 0.1 X10^3/uL (2.0-7.7); Basophil% 3.2 % (0-1); Eosinophils% 3.2 % (0-5); Lymphocyte % 41.9 % (19-41); Monocyte% 3.2 % (0-10); Neutrophil # 0.12 X10^3/uL (2.7-7.7); Neutrophil % 38.8 % (47-70)
[2024-09-16 07:48] LABS: Absolute Lymphocyte Count 0.13 X10^3/uL (0.83-4.51); Anisocytosis 1+; Basophil# 0.01 X10^3/uL; Eosinophil# 0.01 X10^3/uL; Lymphocyte # 0.13 X10^3/ul (0.83-4.51); Monocyte# 0.01 X10^3/uL
[2024-09-16 07:49] LABS: Platelet Estimate MKD DEC (ADEQ)
[2024-09-16] MEDS: Potassium Chloride Oral Soln 20 MEQ/15 ML UDC 10 MEQ PO (08:35)
[2024-09-16] MEDS: Cholecalciferol (Vit D3) 125 MCG CAPSULE (5,000 UNITS) PO (08:36)
[2024-09-16] MEDS: Acetaminophen 325 MG Tablet 650 MG PO ×2 (08:36→17:14)
[2024-09-16] MEDS: Menthol/Lanolin/Calamine/Znox 113 GM Tube 1 APPLIC TOPICAL ×2 (08:38→21:39)
[2024-09-16] MEDS: 0.9% Normal Saline (1000mL) 1,000 ML 100 ML IV (08:39)
[2024-09-16] MEDS: 0.9% Saline Lock 10 ML Syringe IV (08:40)
[2024-09-16] MEDS: Pantoprazole Sodium 40 MG in 0.9% Normal Saline (100mL MB+) 100 ML 330 MG IV (10:00)
[2024-09-16 13:34] LABS: Pathologist Review Reviewed
[2024-09-16 13:36] LABS: Pathologist Review Reviewed
--- NOTE | 2024-09-16 17:35 | PN.HOSP_ITS ---
Reason for Visit Reason for Visit: Diagnoses Malignant neoplasm of pancreas, unspecified (09/14/24) Thrombocytopenia, unspecified (09/14/24) Agranulocytosis secondary to cancer chemotherapy (09/14/24) Hypothyroidism, unspecified (09/14/24) Unspecified protein-calorie malnutrition (09/14/24) Other disorders of bilirubin metabolism (09/14/24) Other disorders of plasma-protein metabolism, not elsewhere classified (09/14/24) Acute kidney failure, unspecified (09/14/24) Other fecal abnormalities (09/14/24) Diarrhea, unspecified (09/14/24) Weakness (09/14/24) Adverse effect of antineoplastic and immunosuppressive drugs, initial encounter (09/14/24) Adverse effect of unspecified drugs, medicaments and biological substances, initial encounter (09/14/24) Subjective Subjective Patient was seen and examined today, she states she feels better today. She still remains neutropenic at this time, hemoglobin today was 7.8 and the platelet count was 27,000. Objective Data Objective Data Vital Signs: Vital Signs Temp Pulse Resp BP Pulse Ox O2 Del Method 97.5 F L 83 16 117/70 99 Room Air 09/16/24 17:18 09/16/24 17:18 09/16/24 17:18 09/16/24 17:18 09/16/24 17:18 09/16/24 17:18 Oxygen Delivery Method Room Air Weight: 53.5 kg Body Mass Index (BMI) 20.2 Intake & Output: Intake and Output for Last 24 Hours 09/14/24 09/15/24 09/16/24 23:59 23:59 23:59 Intake Total 1164.17 / 1164.17 3859.49 / 3859.49 1833.33 / 1833.33 Output Total 250 / 250 0 / 0 Balance 1164.17 / 1164.17 3609.49 / 3609.49 1833.33 / 1833.33 Medical Nutrition Assessment Dietitian: Malnutrition Criteria Met Start: 09/15/24 14:41 Freq: Status: Active Protocol: Document 09/15/24 14:51 SB (Rec: 09/15/24 14:51 SB [id number]) Nutrition Malnutrition Evidence of Yes Malnutrition Exists Malnutrition (severe Chronic ): Evidenced By Suboptimal Energy Intake (Moderate),Physical Changes ( Severe) Clinical Problem Chronic Disease or Condition Related Malnutrition Etiology severe related to inadequate oral intake and increased energy expenditure d/t metastatic pancreatic cancer Signs/Symptoms as evidenced by PO meeting <75% of estimated nutrition needs x >1 week and severe msucle wasting in clavicle and buddhism areas. Status Active Problem Recommendation Dietitian Recommend advanced diet as tolerated to regular; Recommendations/ neutropenic diet. Changes Will order 240ml ensure clear TID with meals; as diet is advanced change to 240ml ensure plus high protein TID with meals. Will monitor weight trends closely. Lab / Micro Data 09/16/24 05:20 09/15/24 08:00 Labs: Laboratory Results - last 24 hr 09/15/24 08:00: Vitamin B12 962 H 09/15/24 17:14: WBC 0.3 L*, RBC 2.98 L, Hgb 8.4 L, Hct 26.3 L, MCV 88.3, MCH 28.2, MCHC 31.9 L, RDW Std Deviation 58.4 H, RDW Coeff of Cecelia 18.7 H, Plt Count 38 L*, MPV 10.1, Immature Gran % (Auto) 0.000, Neut % (Auto) 59.4, Lymph % (Auto) 34.4, [place] % (Auto) 3.1, Eos % (Auto) 0.0, Baso % (Auto) 3.1 H, Absolute Neuts (auto) 0.2 L, Absolute Lymphs (auto) 0.11 L, Nucleated RBC % 0, Differential Comment SCANNED, Diff Path Review Reviewed, Hypochromasia 2+, Macrocytosis RARE, Crenated Cell 1+ 09/16/24 05:20: WBC 0.3 L*, RBC 2.76 L, Hgb 7.8 L, Hct 24.3 L, MCV 88.0, MCH 28.3, MCHC 32.1, RDW Std Deviation 59.4 H, RDW Coeff of Cecelia 18.9 H, Plt Count 27 L*, MPV 10.5, Immature Gran % (Auto) 9.700 H, Neut % (Auto) 38.8 L, Lymph % (Auto) 41.9 H, [place] % (Auto) 3.2, Eos % (Auto) 3.2, Baso % (Auto) 3.2 H, A bsolute Neuts (auto) 0.1 L, Absolute Lymphs (auto) 0.13 L, Diff Path Review Reviewed, Platelet Estimate MKD DEC, Anisocytosis 1+ Micro: Microbiology 09/15/24 10:30 Stool Stool Lactoferrin - Final 09/15/24 10:30 Stool Enteric Bacteriology - Final 09/15/24 10:30 Stool C. difficile GDH Antigen & Toxins - Final Toxigenic C. difficile 09/15/24 10:30 Stool Clostridioides difficile (PCR) - Final 09/14/24 19:45 Stool Stool Occult Blood (ANTONIO) - Final Occult Blood Positive Physical Exam Narrative alert and no apparent distress Constitutional Narrative: Patient appears cachectic and frail General Appearance: cooperative, well kempt and well developed Orientation / Consciousness: awake, oriented to person and oriented to place HEENT normocephalic, head/scalp atraumatic and moist oral mucous membranes Eyes PERRL, EOMs intact bilaterally and conjunctivae normal Neck Patient has a permanent tracheostomy without a cannula present Resp normal respiratory effort, no retractions, no use of accessory muscles and clear to auscultation bilaterally Auscultation: Negative for rales, rhonchi or wheezes Cardio regular rate, regular rhythm, S1 normal heart sound, S2 normal heart sound, no murmurs, no rub and no gallops GI normal to inspection, nondistended, normoactive bowel sounds, soft to palpation, non-tender and non-distended Extremity no clubbing, cyanosis or edema Skin no rashes or lesions noted General Skin Exam: no breakdown Neuro CN's II-XII intact bilaterally, moves all extremities, no focal motor deficits and no sensory deficits noted Sensorium / Orientation: awake, alert, oriented to person and oriented to place Speech: speech normal Psych affect normal Assessment & Plan Assessment/Plan (1) Generalized weakness: PLAN: Plan 1. Pancytopenia-secondary to recent chemotherapy for pancreatic cancer, labs will be rechecked tomorrow #2 C. difficile colitis-continue oral vancomycin #3 metastatic pancreatic cancer-prognosis appears poor, patient is on palliative chemotherapy presently. #4 hypothyroidism-patient is on Synthroid #5 acute kidney injury-patient's labs are pending at the time of this dictation Total clinical time spent by myself addressing the patient's medical issues, reviewing all of her data, and collaborating with patient's care team: 35 minutes Charges/Coding Visit Charges Inpatient E&M: 48777 Subs Hosp L2
[2024-09-17] VITALS (7 sets, daily range): BP systolic 95–107; BP diastolic 55–69; PULSE 85–95; RESP 16; TEMP 36.4–36.6; O2SAT 97–100; BMI 20.5
[2024-09-17] MEDS: Vancomycin 125 MG/5 ML Susp PO.SYRINGE PO ×5 (00:24→23:51)
[2024-09-17] MEDS: 0.9% Saline Lock 10 ML Syringe IV ×3 (06:40→23:51)
[2024-09-17] MEDS: metroNIDAZOLE 500 MG/100 ML BAG 100 MG IV ×3 (06:40→21:10)
[2024-09-17 08:46] LABS: Absolute Lymphocyte Count 0.11 X10^3/uL (0.83-4.51); Absolute Neutrophil Count 0.1 X10^3/uL (2.0-7.7); Hematocrit 28.1 % (37-47); Hemoglobin 8.6 g/dL (12.0-15.0); Lymphocyte # 0.11 X10^3/ul (0.83-4.51); Lymphocyte % 42.3 % (19-41); Mean Corp Hgb Conc 30.6 g/dL (32-36); Mean Corpuscular Hgb 27.6 pg (27.0-32.0); Mean Corpuscular Volume 90.1 fL (81-99); Monocyte# 0.02 X10^3/uL; Monocyte% 7.7 % (0-10); NRBC Flagged by Analyzer 0 % (0-5); Neutrophil # 0.11 X10^3/uL (2.7-7.7); Neutrophil % 42.3 % (47-70); POSITIVE COUNT YES; POSITIVE DIFFERENTIAL YES; POSITIVE MORPHOLOGY YES; Platelet Count 16 K/mm3 (150-450); RBC Distribution Width CV 18.8 % (11.6-14.6); Red Blood Count 3.12 M/mm3 (4.2-5.4); White Blood Count 0.3 K/mm3 (4.4-11.0)
[2024-09-17 08:50] LABS: Differential Indicated SCAN CRITERIA MET
[2024-09-17] MEDS: Menthol/Lanolin/Calamine/Znox 113 GM Tube 1 APPLIC TOPICAL ×2 (09:54→21:10)
[2024-09-17] MEDS: Potassium Chloride Oral Soln 20 MEQ/15 ML UDC 10 MEQ PO (10:21)
[2024-09-17] MEDS: Cholecalciferol (Vit D3) 125 MCG CAPSULE (5,000 UNITS) PO (10:22)
[2024-09-17] MEDS: Pantoprazole Sodium 40 MG in 0.9% Normal Saline (100mL MB+) 100 ML 330 MG IV (10:22)
[2024-09-17] MEDS: Acetaminophen 325 MG Tablet 650 MG PO (10:22)
[2024-09-17] MEDS: TBO-FILGRASTIM 300 MCG/0.5 ML ML SC (13:16)
[2024-09-17 19:04] LABS: Phosphorus 3.4 mg/dL (2.7-4.5)
[2024-09-17 19:05] LABS: BUN 46 mg/dL (4-19); BUN/Creat Ratio 36.7 RATIO (10-20); Calcium 7.1 mg/dL (7.6-11.0); Carbon Dioxide 19.5 mmol/L (22.0-29.0); Creatinine, Serum 1.24 mg/dL (0.70-1.20); Estimated Creatinine Clearance 37.81 ml/min; Glucose 99 mg/dL (70-99)
[2024-09-17 19:06] LABS: Anion Gap 11 (5-15); Chloride 112 mmol/L (96-108); EST Glomerular Filtration Rate 48 (>60); Potassium 3.7 mmol/L (3.3-5.1); Sodium Level 142 mmol/L (133-145)
--- NOTE | 2024-09-17 19:11 | PN.HOSP_ITS ---
Reason for Visit Reason for Visit: Diagnoses Malignant neoplasm of pancreas, unspecified (09/14/24) Thrombocytopenia, unspecified (09/14/24) Agranulocytosis secondary to cancer chemotherapy (09/14/24) Hypothyroidism, unspecified (09/14/24) Unspecified protein-calorie malnutrition (09/14/24) Other disorders of bilirubin metabolism (09/14/24) Other disorders of plasma-protein metabolism, not elsewhere classified (09/14/24) Acute kidney failure, unspecified (09/14/24) Other fecal abnormalities (09/14/24) Diarrhea, unspecified (09/14/24) Weakness (09/14/24) Adverse effect of antineoplastic and immunosuppressive drugs, initial encounter (09/14/24) Adverse effect of unspecified drugs, medicaments and biological substances, initial encounter (09/14/24) Subjective Subjective Patient was seen and examined, she is in no distress, patient's daughter is in the room at the time my examination. Patient remains pancytopenic, I talked briefly with her oncologist and he recommended starting the patient on Granix Objective Data Objective Data Vital Signs: Vital Signs Temp Pulse Resp BP Pulse Ox O2 Del Method 97.9 F 87 16 104/69 100 Room Air 09/17/24 17:32 09/17/24 17:32 09/17/24 17:32 09/17/24 17:32 09/17/24 17:32 09/17/24 17:32 Oxygen Delivery Method Room Air Weight: 54.4 kg Body Mass Index (BMI) 20.5 Intake & Output: Intake and Output for Last 24 Hours 09/15/24 09/16/24 09/17/24 23:59 23:59 23:59 Intake Total 3859.49 / 3859.49 3610.00 / 3610.00 310 / 310 Output Total 250 / 250 0 / 0 Balance 3609.49 / 3609.49 3610.00 / 3610.00 310 / 310 Medical Nutrition Assessment Dietitian: Malnutrition Criteria Met Start: 09/15/24 14:41 Freq: Status: Active Protocol: Document 09/15/24 14:51 SB (Rec: 09/15/24 14:51 SB [id number]) Nutrition Malnutrition Evidence of Yes Malnutrition Exists Malnutrition (severe Chronic ): Evidenced By Suboptimal Energy Intake (Moderate),Physical Changes ( Severe) Clinical Problem Chronic Disease or Condition Related Malnutrition Etiology severe related to inadequate oral intake and increased energy expenditure d/t metastatic pancreatic cancer Signs/Symptoms as evidenced by PO meeting <75% of estimated nutrition needs x >1 week and severe msucle wasting in clavicle and religious areas. Status Active Problem Recommendation Dietitian Recommend advanced diet as tolerated to regular; Recommendations/ neutropenic diet. Changes Will order 240ml ensure clear TID with meals; as diet is advanced change to 240ml ensure plus high protein TID with meals. Will monitor weight trends closely. Lab / Micro Data 09/17/24 08:25 09/16/24 05:20 Labs: Laboratory Results - last 24 hr 09/16/24 05:20: Sodium Cancelled 09/16/24 05:20: Sodium 142, Potassium Cancelled 09/16/24 05:20: Potassium 3.7, Chloride Cancelled, Chloride Direct 112 H, Carbon Dioxide Cancelled 09/16/24 05:20: Carbon Dioxide 19.5 L, Anion Gap Cancelled 09/16/24 05:20: Anion Gap 11, BUN Cancelled 09/16/24 05:20: BUN 46 H, Creatinine Cancelled 09/16/24 05:20: Creatinine 1.24 H, Estim Creat Clear Calc Cancelled 09/16/24 05:20: Estim Creat Clear Calc 37.81, Est GFR (MDRD) Af Amer Cancelled, Est GFR (MDRD) Non-Af Cancelled 09/16/24 05:20: Est GFR (MDRD) Non-Af 48 L, BUN/Creatinine Ratio Cancelled 09/16/24 05:20: BUN/Creatinine Ratio 36.7 H, Glucose Cancelled 09/16/24 05:20: Glucose 99, Calcium Cancelled 09/16/24 05:20: Calcium 7.1 L, Phosphorus Cancelled 09/16/24 05:20: Phosphorus 3.4 09/17/24 08:25: WBC 0.3 L*, RBC 3.12 L, Hgb 8.6 L, Hct 28.1 L, MCV 90.1, MCH 27.6, MCHC 30.6 L, RDW Std Deviation 61.0 H, RDW Coeff of Cecelia 18.8 H, Plt Count 16 L*, Immature Gran % (Auto) 7.700 H, Neut % (Auto) 42.3 L, Lymph % (Auto) 42.3 H, [place] % (Auto) 7.7, Eos % (Auto) 0.0, Baso % (Auto) 0.0, Absolute Neuts (auto) 0.1 L, Absolute Lymphs (auto) 0.11 L, Nucleated RBC % 0, Differential Comment , Diff Path Review November Micro: Microbiology 09/14/24 20:36 Blood Culture (Wb) - Port Blood Culture - Preliminary No growth in 48 hours. 09/14/24 19:45 Blood Culture (Wb) - Port Blood Culture - Preliminary No growth in 48 hours. 09/15/24 10:30 Stool Stool Lactoferrin - Final 09/15/24 10:30 Stool Enteric Bacteriology - Final 09/15/24 10:30 Stool C. difficile GDH Antigen & Toxins - Final Toxigenic C. difficile 09/15/24 10:30 Stool Clostridioides difficile (PCR) - Final 09/14/24 19:45 Stool Stool Occult Blood (ANTONIO) - Final Occult Blood Positive Physical Exam Narrative alert and no apparent distress Constitutional Narrative: Patient appears cachectic and frail General Appearance: cooperative, well kempt and well developed Orientation / Consciousness: awake, oriented to person and oriented to place HEENT normocephalic, head/scalp atraumatic and moist oral mucous membranes Eyes PERRL, EOMs intact bilaterally and conjunctivae normal Neck Patient has a permanent tracheostomy without a cannula present Resp normal respiratory effort, no retractions, no use of accessory muscles and clear to auscultation bilaterally Auscultation: Negative for rales, rhonchi or wheezes Cardio regular rate, regular rhythm, S1 normal heart sound, S2 normal heart sound, no murmurs, no rub and no gallops GI normal to inspection, nondistended, normoactive bowel sounds, soft to palpation, non-tender and non-distended Extremity no clubbing, cyanosis or edema Skin no rashes or lesions noted General Skin Exam: no breakdown Neuro CN's II-XII intact bilaterally, moves all extremities, no focal motor deficits and no sensory deficits noted Sensorium / Orientation: awake, alert, oriented to person and oriented to place Speech: speech normal Psych affect normal Assessment & Plan Assessment/Plan (1) Generalized weakness: PLAN: Plan 1. Pancytopenia-secondary to recent chemotherapy for pancreatic cancer, labs will be rechecked tomorrow, patient was started on Granix #2 C. difficile colitis-continue oral vancomycin #3 metastatic pancreatic cancer-prognosis appears poor, patient is on palliative chemotherapy presently. #4 hypothyroidism-patient is on Synthroid #5 acute kidney injury-patient's labs are pending at the time of this dictation Total clinical time spent by myself addressing the patient's medical issues, reviewing all of her data, and collaborating with patient's care team: 35 minutes Charges/Coding Visit Charges Inpatient E&M: 50242 Subs Hosp L2
[2024-09-18 03:02] VITALS: BP 114/66; PULSE 91; RESP 16; TEMP 36.6; O2SAT 100
[2024-09-18 03:12] LABS: Hematocrit 30.1 % (37-47); Hemoglobin 9.3 g/dL (12.0-15.0); Mean Corp Hgb Conc 30.9 g/dL (32-36); Mean Corpuscular Hgb 27.8 pg (27.0-32.0); Mean Corpuscular Volume 90.1 fL (81-99); Mean Platelet Vol. 10.9 fl (6.2-12.0); POSITIVE COUNT YES; POSITIVE DIFFERENTIAL YES; POSITIVE MORPHOLOGY YES; Platelet Count 13 K/mm3 (150-450); RBC Distribution Width CV 19.5 % (11.6-14.6); RBC Distribution Width SD 62.6 fl (35.1-43.9); Red Blood Count 3.34 M/mm3 (4.2-5.4); White Blood Count 0.4 K/mm3 (4.4-11.0)
[2024-09-18 03:28] LABS: Magnesium 1.9 mg/dL (1.5-2.2)
[2024-09-18 04:56] LABS: Lymphocyte 28 % (19-41)
[2024-09-18 04:57] LABS: Scan Smear per Review Criteria MANUAL DIFF
[2024-09-18 04:58] LABS: Differential Indicated MANUAL DIFF
[2024-09-18 04:59] LABS: Absolute Neutrophil Count 0.2 X10^3/uL (2.0-7.7); Pathologist Review May foll
[2024-09-18] MEDS: metroNIDAZOLE 500 MG/100 ML BAG 100 MG IV (05:21)
[2024-09-18] MEDS: Vancomycin 125 MG/5 ML Susp PO.SYRINGE PO ×2 (05:21→10:12)
[2024-09-18 09:58] VITALS: BP 114/68; PULSE 92; RESP 18; TEMP 36.6
[2024-09-18] MEDS: Potassium Chloride Oral Soln 20 MEQ/15 ML UDC 10 MEQ PO (10:11)
[2024-09-18] MEDS: Cholecalciferol (Vit D3) 125 MCG CAPSULE (5,000 UNITS) PO (10:12)
[2024-09-18] MEDS: TBO-FILGRASTIM 300 MCG/0.5 ML ML SC (10:12)
[2024-09-18] MEDS: Pantoprazole Sodium 40 MG Tablet PO (10:12)
[2024-09-18] MEDS: Menthol/Lanolin/Calamine/Znox 113 GM Tube 1 APPLIC TOPICAL (10:12)
[2024-09-18 10:13] VITALS: BP 121/77; PULSE 95; RESP 18; TEMP 36.3; O2SAT 100
[2024-09-18 10:53] VITALS: BP 116/72; PULSE 87; RESP 20; TEMP 36.4; O2SAT 100
[2024-09-18 11:46] VITALS: BP 102/57; PULSE 94; RESP 20; TEMP 36.4; O2SAT 98
--- NOTE | 2024-09-18 12:01 | CASEMGMT ---
EVER SUE notified by hospitalist that Pt is wanting [facility] services. Pt would like to get lab work done with [facility] agency instead of coming into hospital all the time for Blood work. EVER SUE into pt room, family requested [facility], denies wanting a list of [facility] agencies. Daughter works for [employer]. EVER SUE sent referral to [facility].
--- NOTE | 2024-09-18 13:06 | CASEMGMT ---
EVER SUE called [facility] to confirm they received referral. [employer] states they are able to accept pt.
[2024-09-18 13:38] LABS: Pathologist Review Reviewed
--- NOTE | 2024-09-18 13:46 | DCINST_ITS ---
Discharge Instructions Diet Discharge Diet: No restrictions DC O2, CPAP, BIPAP needs Home O2 Discharge instructions: No Dressing / Incision Discharge Activity: Return to Normal Activity Weight Bearing Status: Full weight bearing Follow Up Care Test Results: Test results from this visit will be discussed in further detail at your follow- up appointment, if applicable. Discharge Plan Admission Admit Date/Time: 09/14/24 21:36 Primary Reason for Your Visit: C. difficile colitis Attending Provider: Jonathon Tirado Primary Care Provider: Ashanti Lucio Consulting Providers: Jose Ramon Moctezuma Discharge Orders/Prescriptions Prescriptions: New vancomycin [Firvanq] 25 mg/mL Recon Soln 125 mg PO Q6 Qty: 200 0RF Continued lisinopril 10 mg tablet 10 mg PO BID cholecalciferol (vitamin D3) 125 mcg (5,000 unit) capsule 125 mcg PO DAILY prochlorperazine maleate 10 mg tablet 10 mg PO Q6H PRN (Reason: nausea and vomiting) Qty: 30 2RF ondansetron 8 mg tablet,disintegrating 8 mg PO Q8H PRN (Reason: nausea and vomiting) Qty: 30 2RF lidocaine-prilocaine 2.5-2.5 % cream 1 applic topical ONCE PRN (Reason: port access) 30 Days Qty: 30 2RF potassium chloride 20 mEq/15 mL liquid 10 meq PO QDAY Qty: 750 1RF omeprazole 40 mg capsule,delayed release(DR/EC) 40 mg PO DAILY Patient Comments: TAKE 1 CAPSULE BY MOUTH ONCE DAILY levothyroxine 75 mcg tablet 50 mcg PO MOTUWETHFR aspirin 81 mg Tablet,Chewable 81 mg PO BREAKFAST Qty: 30 11RF levothyroxine 50 mcg tablet 100 mcg PO SUSA Referrals / Follow Up: Juan Pablo Jaffe MD [Med Staff - Active Staff] - See Referral Note (On Saturday or Saturday of next week for a repeat CBC) Ashanti Lucio PA-C [Primary Care Provider] - Disposition Disposition (needs filled in before D/C Order can be placed): Home Health Service
--- NOTE | 2024-09-18 13:56 | PCM.DC.SUM ---
Providers Date of Admission: 09/14/24 Date of Discharge: 09/18/24 Primary Care Physician: Ashanti Lucio PA-C Reason For Visit: DIARRHEA, HEMOCCULT + STOOLS AND MICHAEL 2/2 ADVERSE Diagnosis Discharge Diagnosis (1) Generalized weakness: Status: Acute Code(s): R53.1 - Weakness Plan 1. Pancytopenia-secondary to recent chemotherapy for pancreatic cancer, labs will be rechecked tomorrow, patient was started on Granix #2 C. difficile colitis-continue oral vancomycin #3 metastatic pancreatic cancer-prognosis appears poor, patient is on palliative chemotherapy presently. #4 hypothyroidism-patient is on Synthroid #5 acute kidney injury-patient's labs are pending at the time of this dictation Total clinical time spent by myself addressing the patient's medical issues, reviewing all of her data, and collaborating with patient's care team: 35 minutes Medications at Discharge Home Medications levothyroxine 75 mcg tablet 50 mcg PO MOTUWETHFR thyroid 11/30/21 omeprazole 40 mg capsule,delayed release 40 mg PO DAILY gerd 11/30/21 aspirin 81 mg chewable tablet 81 mg PO BREAKFAST blood thinner #30 tabs 12/01/21 cholecalciferol (vitamin D3) 125 mcg (5,000 unit) capsule 125 mcg PO DAILY supplement 12/17/23 lisinopril 10 mg tablet 10 mg PO BID bp 12/17/23 levothyroxine 50 mcg tablet 100 mcg PO SUSA thyroid 01/14/24 lidocaine-prilocaine 2.5 %-2.5 % topical cream 1 applic topical ONCE PRN port access 30 days #30 grams 08/20/24 ondansetron 8 mg disintegrating tablet 8 mg PO Q8H PRN nausea and vomiting #30 tabs 08/20/24 prochlorperazine maleate 10 mg tablet 10 mg PO Q6H PRN nausea and vomiting #30 tabs 08/20/24 potassium chloride 20 mEq/15 mL oral liquid 10 meq (7.5 mL) PO QDAY supplement #750 mL 09/03/24 vancomycin 25 mg/mL oral solution (Firvanq) 125 mg (5 mL) PO Q6 #200 mL 09/18/24 Hospital Course Operations None Procedures Blood transfusion Summary of Care Provided Minutes Spent on Discharge: 31 Hospital Course: This 68-year-old white female was seen in the emergency room at [facility] with chief complaint of severe watery diarrhea. Patient has a history of metastatic pancreatic cancer and is undergoing treatment by an oncologist. Patient was admitted to PCU, tests were run on the patient's stool, these tests indicate the patient had C. difficile colitis and she was placed on oral vancomycin. Patient also was noted to be pancytopenic during her hospitalization and placed on Granix, she was also given 1 unit of packed red blood cells and platelets. On 09/18/2024, patient was seen and examined: On examination she appeared cachectic and older than her stated age, she does not appear to be in any distress. Vital signs as documented. Skin warm and dry and without overt rashes. Neck without JVD, patient had a permanent tracheostomy, neck is supple. Lungs clear, normal air movement was noted. Heart exam notable for regular rhythm, normal sounds and absence of murmurs, rubs or gallops. Abdomen unremarkable and without evidence of organomegaly, masses, or abdominal aortic enlargement, bowel sounds are present in all 4 quadrants, no abdominal tenderness was noted. Extremities nonedematous, no cyanosis was noted, no clubbing was noted. Neuro: Cranial nerves II through XII are grossly intact, no focal motor deficits were noted, sensation to light touch and pinprick is intact, motor exam 5/5 throughout. Psych: Patient is alert and oriented x3, she does not appear anxious or depressed, she does not appear agitated. Patient appears stable for discharge home on 09/18/2024. Medical Records Data Medical Nutrition Assessment Dietitian: Malnutrition Criteria Met Start: 09/15/24 14:41 Freq: Status: Active Protocol: Document 09/15/24 14:51 SB (Rec: 09/15/24 14:51 SB [id number]) Nutrition Malnutrition Evidence of Yes Malnutrition Exists Malnutrition (severe Chronic ): Evidenced By Suboptimal Energy Intake (Moderate),Physical Changes ( Severe) Clinical Problem Chronic Disease or Condition Related Malnutrition Etiology severe related to inadequate oral intake and increased energy expenditure d/t metastatic pancreatic cancer Signs/Symptoms as evidenced by PO meeting <75% of estimated nutrition needs x >1 week and severe msucle wasting in clavicle and yarsani areas. Status Active Problem Recommendation Dietitian Recommend advanced diet as tolerated to regular; Recommendations/ neutropenic diet. Changes Will order 240ml ensure clear TID with meals; as diet is advanced change to 240ml ensure plus high protein TID with meals. Will monitor weight trends closely. Weight / BMI Weight Weight: 54.4 kg Body Mass Index (BMI) 20.5 ABG / Lab / Microbiology Data 09/18/24 02:45 09/16/24 05:20 Laboratory: Laboratory Results - last 24 hr 09/16/24 05:20: Sodium Cancelled 09/16/24 05:20: Sodium 142, Potassium Cancelled 09/16/24 05:20: Potassium 3.7, Chloride Cancelled, Chloride Direct 112 H, Carbon Dioxide Cancelled 09/16/24 05:20: Carbon Dioxide 19.5 L, Anion Gap Cancelled 09/16/24 05:20: Anion Gap 11, BUN Cancelled 09/16/24 05:20: BUN 46 H, Creatinine Cancelled 09/16/24 05:20: Creatinine 1.24 H, Estim Creat Clear Calc Cancelled 09/16/24 05:20: Estim Creat Clear Calc 37.81, Est GFR (MDRD) Af Amer Cancelled, Est GFR (MDRD) Non-Af Cancelled 09/16/24 05:20: Est GFR (MDRD) Non-Af 48 L, BUN/Creatinine Ratio Cancelled 09/16/24 05:20: BUN/Creatinine Ratio 36.7 H, Glucose Cancelled 09/16/24 05:20: Glucose 99, Calcium Cancelled 09/16/24 05:20: Calcium 7.1 L, Phosphorus Cancelled 09/16/24 05:20: Phosphorus 3.4 09/17/24 08:25: Diff Path Review Reviewed 09/18/24 02:45: WBC 0.4 L*, RBC 3.34 L, Hgb 9.3 L, Hct 30.1 L, MCV 90.1, MCH 27.8, MCHC 30.9 L, RDW Std Deviation 62.6 H, RDW Coeff of Cecelia 19.5 H, Plt Count 13 L*, MPV 10.9, Immature Gran % (Auto) BENCH MACHINE OPERATOR, Neut % (Auto) BENCH MACHINE OPERATOR, Lymph % (Auto) BENCH MACHINE OPERATOR, [place] % (Auto) BENCH MACHINE OPERATOR, Eos % (Auto) BENCH MACHINE OPERATOR, Baso % (Auto) BENCH MACHINE OPERATOR, Absolute Neuts (auto) 0.2 L, Absolute Lymphs (auto) 0.10 L, Total Counted 100, Neutrophils % (Manual) 55, Band Neutrophils % 2, Lymphocytes % (Manual) 28, Monocytes % (Manual) 10, Eosinophils % (Manual) 3, Metamyelocytes % 2 H, Nucleated RBC % BENCH MACHINE OPERATOR, Diff Path Review May foll, Magnesium 1.9, Blood Type O POSITIVE Microbiology: Microbiology 09/14/24 10:30 Stool Ova and Parasites - Final 09/14/24 20:36 Blood Culture (Wb) - Port Blood Culture - Preliminary No growth in 48 hours. 09/14/24 19:45 Blood Culture (Wb) - Port Blood Culture - Preliminary No growth in 48 hours. 09/15/24 10:30 Stool Stool Lactoferrin - Final 09/15/24 10:30 Stool Enteric Bacteriology - Final 09/15/24 10:30 Stool C. difficile GDH Antigen & Toxins - Final Toxigenic C. difficile 09/15/24 10:30 Stool Clostridioides difficile (PCR) - Final 09/14/24 19:45 Stool Stool Occult Blood (ANTONIO) - Final Occult Blood Positive D/C Instructions Discharge Diet: No restrictions Weight Bearing Status: Full weight bearing DC O2, CPAP, BIPAP Needs Home O2 Discharge instructions: No Meaningful Use Info Meaningful Use Meaningful Use Diagnoses (Choose all that apply): None applicable Ischemic Stroke Statin Dosing Therapy Reference: STATIN DOSE THERAPY REFERENCE: * Patients > 75 years receive moderate or high dose statin therapy. * Patients 75 years or YOUNGER should receive HIGH intensity statin dose unless contraindicated. You will be required to document reason for non-treatment if statin daily dose does not meet guidelines. HIGH DOSE STATIN THERAPY DAILY Atorvastatin > than or = to 40 mg Rosuvastatin > than or = to 20 mg Amlodipine + Atorvastatin > than or = to 2.5/40 mg Ezetimibe + Simvastatin 10/80 mg Simvastatin 80mg Discharge Plan Admission Admit Date/Time: 09/14/24 21:36 Primary Reason for Your Visit: C. difficile colitis Attending Provider: Jonathon Tirado Primary Care Provider: Ashanti Lucio Consulting Providers: Jose Ramon Moctezuma Discharge Orders/Prescriptions Prescriptions: New vancomycin [Firvanq] 25 mg/mL Recon Soln 125 mg PO Q6 Qty: 200 0RF Continued lisinopril 10 mg tablet 10 mg PO BID cholecalciferol (vitamin D3) 125 mcg (5,000 unit) capsule 125 mcg PO DAILY prochlorperazine maleate 10 mg tablet 10 mg PO Q6H PRN (Reason: nausea and vomiting) Qty: 30 2RF ondansetron 8 mg tablet,disintegrating 8 mg PO Q8H PRN (Reason: nausea and vomiting) Qty: 30 2RF lidocaine-prilocaine 2.5-2.5 % cream 1 applic topical ONCE PRN (Reason: port access) 30 Days Qty: 30 2RF potassium chloride 20 mEq/15 mL liquid 10 meq PO QDAY Qty: 750 1RF omeprazole 40 mg capsule,delayed release(DR/EC) 40 mg PO DAILY Patient Comments: TAKE 1 CAPSULE BY MOUTH ONCE DAILY levothyroxine 75 mcg tablet 50 mcg PO MOTUWETHFR aspirin 81 mg Tablet,Chewable 81 mg PO BREAKFAST Qty: 30 11RF levothyroxine 50 mcg tablet 100 mcg PO SUSA Referrals / Follow Up: Juan Pablo Jaffe MD [Med Staff - Active Staff] - 09/22/24 1:00 pm (On Saturday or Saturday of next week for a repeat CBC please arrive at 12:15 for blood work, followed by 1:00 appointment with ) Ashanti Lucio PA-C [Primary Care Provider] - 09/28/24 10:45 am Disposition Disposition (needs filled in before D/C Order can be placed): Home Health Service Charges/Coding Visit Charges Inpatient E&M: 67396 Disch Hosp >30min
--- NOTE | 2024-09-18 14:14 | CHAPLAIN ---
Type of Pastoral Visit _x__ Initial Visit ___ Follow-up Visit ___ On-call Visit ___ General Patient Visit ___ Spiritual Assessment ___ Family Conference ___ Bereavement ___ Rapid Response ___ Code Blue ___ Other (describe below) Pastoral Care Referral From ___ Patient _x__ Family ___ Nurse ___ Physician ___ Director Equipment ___ Information Systems Analyst ___ Other (describe below) Sacrament/Intervention ___ Active listening ___ Anointing ___ Jain ___ Bereavement ___ Communion ___ Amna exploration ___ ___ Life review ___ Prayer ___ Reconciliation ___ Sacrament of Sick ___ Supportive presence ___ Wedding _x__ Other (describe below) Pastoral Comments patient was offered support; two family members are in the room; pt whispers to family that she does not want any company right now:
--- NOTE | 2024-09-18 14:25 | CASEMGMT ---
Discharge Planning Discharge instruction sent to N. Kayli Delacruz DC Planning Asst.
--- NOTE | 2024-09-18 14:29 | CASEMGMT ---
RN VIKRAM noted DC order in. Called pharmacy for oral vanc, retail pharmacy stated pt cost is $0. Asked to have medication delivered to pt room. RN VIKRAM notified pt and daughter of medication cost and let them know [facility] able to accept pt. Denies questions or concerns at this time.
[2024-09-18 14:42] LABS: Eosinophil 4 % (0-5); Monocyte 8 % (0-10); Neutrophil-Segmented 60 % (47-70); Total Cells Counted 25 (MANUAL DIFF)
== END 2024-09-18 15:04 | disposition home health service (06) | DRG 808 ==
LOC: ED 21:54 → PCU 22:05
PROVIDERS: Nurse Practitioner; Admitting Provider Internal Medicine; Emergency Provider Emergency Medicine; PCP Family Medicine; Referring Provider Internal Medicine; Visit Provider Internal Medicine
DX: D61.810 Antineoplastic chemotherapy induced pancytopenia (principal); E43 Unspecified severe protein-calorie malnutrition; A04.72 Enterocolitis due to Clostridium difficile, not specified as recurrent; C78.01 Secondary malignant neoplasm of right lung; C78.02 Secondary malignant neoplasm of left lung; C25.9 Malignant neoplasm of pancreas, unspecified; C78.7 Secondary malignant neoplasm of liver and intrahepatic bile duct; N17.9 Acute kidney failure, unspecified; Z68.1 Body mass index [BMI] 19.9 or less, adult; D50.9 Iron deficiency anemia, unspecified; J44.9 Chronic obstructive pulmonary disease, unspecified; E03.9 Hypothyroidism, unspecified; I10 Essential (primary) hypertension; Z93.0 Tracheostomy status; E80.6 Other disorders of bilirubin metabolism; K21.9 Gastro-esophageal reflux disease without esophagitis; M19.90 Unspecified osteoarthritis, unspecified site; I95.9 Hypotension, unspecified; T45.1X5A Adverse effect of antineoplastic and immunosuppressive drugs, initial encounter; R53.1 Weakness; Z79.82 Long term (current) use of aspirin; Z79.890 Hormone replacement therapy; Z79.899 Other long term (current) drug therapy; Z92.21 Personal history of antineoplastic chemotherapy; Z87.891 Personal history of nicotine dependence; Z90.02 Acquired absence of larynx
CPT/HCPCS: 36415; 36591; 70450; 71045; 80048; 80053; 80076; 81001; 82274; 82607; 82746; 83605; 83630; 83690; 83735; 84100; 84439; 84443; 84481; 84484; 85025; 86850; 86900; 86901; 86965; 87040; 87177; 87209; 87493; 87506; 93005; 97161; 97166; 97802; 99283; P9016; P9035; A4216; J1447